=== PATIENT | female | born 1995 | race Caucasian/White ===

== ENCOUNTER 2019-09-16 16:57 | Inpatient (IN) | payer BC, SELFPAY ==
[2019-09-16] VITALS (48 sets, daily range): BP systolic 89–127; BP diastolic 58–87; PULSE 66–103; TEMP 36.5–37.3; O2SAT 98–100; BMI 26.6
[2019-09-16] MEDS: LACTATED RINGERS 1,000 ML 125 ML IV CONT ×3 (17:31→19:24)
--- NOTE | 2019-09-16 17:43 | LDADM ---
This patient, Rose Lerner, was admitted to Labor/Delivery/Recovery 105 on 09/16/19 at 16:57. Plans for labor, pain management and were discussed with patient. Patient/family oriented to hospital policies and general routines including ID bracelet, bed and alarms, visiting hours, pain management, procedures, bathroom and other care routines, personal items, smoking policy, room service/diet and guest tray routines, security routines, and visiting hours. Patient/Family are encouraged to report perceived risks to care and to ask questions if they do not understand what they are told or what they should do. See OBIX for further documentation.
[2019-09-16 17:59] LABS: Basophils Absolute Auto 0.1 K/mm3 (0.0-0.1); Basophils Percent Auto 0.4 % (0.2-1.2); Eosinophils Absolute Auto 0.1 K/mm3 (0-0.3); Eosinophils Percent Auto 0.7 % (0-4.4); Hematocrit 37.7 % (37.0-47.0); Hemoglobin 13.2 g/dL (12.0-15.0); Immature Granulocyte Absolute 0.15 K/mm3 (0.00-0.031); Immature Granulocyte Percent A 0.9 % (0-0.5); Lymphocytes Absolute Auto 2.14 K/mm3 (0.9-3.2); Mean Corpuscular Hemoglobin 30.7 pg (26-34); Mean Corpuscular Volume 87.7 fl (80-100); Mean Platelet Volume 13.9 fl (7.4-10.4); Monocytes Absolute Auto 0.8 K/mm3 (0.1-0.6); Neutrophils Absolute Auto 13.2 K/mm3 (1.3-6.7); Platelet Count Result 136 k/mm3 (150-375); Red Cell Distribution Width 12.7 % (11.5-14.5); White Blood Count 16.5 K/mm3 (4.5-10.0)
--- NOTE | 2019-09-16 18:46 | WPDANESEPPF ---
Anes - Initial Pre Proc Eval Procedure: labor epidural Date/Time: 09/16/19 18:46 Surgeon: Phi Shelton MD Pre Op Diagnosis: labor pain Pre Op Diagnosis: CONTRACTIONS Patient Data Age: 24 Gender: F Height: 1.7 m Weight: 77 kg Last Vital Signs Temp 37.3 C 09/16/19 18:34 Pulse 68 09/16/19 18:43 BP 116/73 09/16/19 18:43 Pulse Ox 100 09/16/19 18:42 Allergies Allergy/AdvReac Type Severity Reaction Status Date / Time amoxicillin [From Augmentin] Allergy Hives Verified 08/20/19 15:32 clavulanic acid Allergy Hives Verified 08/20/19 15:32 [From Augmentin] Penicillins Allergy Fever Verified 08/20/19 15:32 Home Medications Medication Instructions Recorded Confirmed Type PNV cmb#95-ferrous fumarate-FA 1 tablet PO DAILY 08/20/19 09/16/19 History [] albuterol sulfate [Ventolin HFA] 1 inh INHALATION QID PRN 08/20/19 09/16/19 History knawnvzfih-unjxyxb-crvfjxkv 1 tablet PO Q4-6H PRN 08/20/19 09/16/19 History sertraline 100 mg PO DAILY 08/20/19 09/16/19 History zolpidem [Ambien] 5 mg PO HS PRN 08/20/19 09/16/19 History Laboratory Tests 09/16/19 09/16/19 09/16/19 17:23 17:23 17:23 WBC 16.5 K/mm3 H K/mm3 (4.5-10.0) RBC 4.30 M/mm3 M/mm3 (4.2-5.4) Hgb 13.2 g/dL g/dL (12.0-15.0) Hct 37.7 % % (37.0-47.0) MCV 87.7 fl fl (80-100) MCH 30.7 pg pg (26-34) MCHC 35.0 g/dl g/dl (32-36) RDW 12.7 % % (11.5-14.5) Plt Count 136 k/mm3 L k/mm3 (150-375) MPV 13.9 fl H fl (7.4-10.4) Immature Gran % (Auto) 0.9 % H % (0-0.5) Neut % (Auto) 80.0 % H % (45.5-73.1) Lymph % (Auto) 13.0 % L % (18.3-44.2) [place] % (Auto) 5.0 % % (2.6-8.5) Eos % (Auto) 0.7 % % (0-4.4) Baso % (Auto) 0.4 % % (0.2-1.2) Lymph # (Auto) 2.14 K/mm3 K/mm3 (0.9-3.2) [place] # (Auto) 0.8 K/mm3 H K/mm3 (0.1-0.6) Eos # (Auto) 0.1 K/mm3 K/mm3 (0-0.3) Baso # (Auto) 0.1 K/mm3 K/mm3 (0.0-0.1) Abs Immat Gran (auto) 0.15 K/mm3 H K/mm3 (0.00-0.031) Absolute Neuts (auto) 13.2 K/mm3 H K/mm3 (1.3-6.7) Absolute Nucleated RBC 0.0 K/mm3 K/mm3 (0.0-0.012) Nucleated RBC % 0.0 % % (0.0-0.2) % Immature Plt Fraction 18.0 % H % (0.9-11.2) RPR Pending Blood Type Pending Antibody Screen Pending Patient hx anesthesia problems: none Family hx anesthesia problems: none [facility] Past Medical History Medical History (Updated 09/16/19 @ 18:48 by Evans Ramos CRNA) Asthma Depression Family History Family History (Updated 08/20/19 @ 15:39 by Noam Mcdonald RN) Grandparent Leukemia Ovarian cancer Father Celiac disease Other Breast cancer Social History Social History Smoking status: Never smoker Substance use: never Gender identity (if verbalized by the patient): Female Spiritual care concerns: No Anes - Eval Final PreProcedure Day of Procedure 09/16/19 18:46 Patient weight: normal Heart: regular rate and rhythm Lungs: clear to auscultation and normal air movement Airway: Mallampati scale Neurological: alert and oriented ASA classification: II Emergent: no Anesthetic plan: proceed Anesthesia type and monitoring: regional epidural and standard monitoring Informed Consent: The patient's anesthetic plan and its attendant risks and benefits were discussed with the patient/family/POA. Questions were solicited and answers provided to the satisfaction of the patient/family/POA.
[2019-09-16] MEDS: SERTRALINE HCL 50 MG TABLET 100 MG PO (19:59)
--- NOTE | 2019-09-16 20:50 | WPDOBADMIT ---
Obstetrics - Admit Note Admission Note: record reviewed. No pertinent additions to the history and/or any subsequent changes in the physical findings that are not consistent with the expected course of the were found. Pt arrived in active labor, epidural placed, AROM large amount of clear odorless fluid, 9/100/-1/0, anticipate vaginal delivery Additions to the history and/or subsequent changes in the physical findings follow. None.
[2019-09-16] MEDS: OXYTOCIN 30 UNITS/NS 500 ML 30 UNITS/500 ML BAG 999 UNITS IV CONT (21:57)
[2019-09-16] MEDS: MISOPROSTOL 200 MCG TABLET 1000 MCG (22:06)
--- NOTE | 2019-09-16 22:12 | PM.OBPRVD ---
OB - Delivery Note Procedure Delivery date: 09/16/19 Procedure: vaginal delivery Intrapartal events: None Delivery augmentation: rupture of membranes Delivery monitor: external FHT and external uterine Route of delivery: Laceration description: Perineal - 1st Degree Delivery repair: vicryl Specimen: No Estimated blood loss (mL): 135 Anesthesia type: Epidural Disposition: other () Baby Date of : 09/16/19 Time of : 21:51 Weeks of gestation at delivery: 39 Infant gender: Male Weight (pounds): 7 Weight (ounces): 14 presentation: vertex position: Left Occiput Anterior Placenta delivery description: Spontaneous cord vessel description: 3 Vessels and Clamped/Cut score one minute: 8 score five minutes: 9 Narrative: mother and baby in stable condition
[2019-09-16] MEDS: OXYTOCIN 30 UNITS/NS 500 ML 30 UNITS/500 ML BAG 125 UNITS IV CONT (22:29)
[2019-09-17 00:01] VITALS: BP 108/70; PULSE 80
[2019-09-17 00:16] VITALS: BP 122/67; PULSE 77
[2019-09-17 00:31] VITALS: BP 110/64; PULSE 74
[2019-09-17] MEDS: BENZOCAINE 20% AER SPR (*SP) 56 GM CAN 1 SPRAY TOPICAL ×2 (00:38→17:51)
[2019-09-17] MEDS: WITCH HAZEL 40 PADS 1 PAD TOPICAL ×2 (00:38→17:51)
[2019-09-17 01:00] VITALS: BP 113/69; PULSE 72; RESP 14; TEMP 36.9
--- NOTE | 2019-09-17 01:40 | PC.NURSE ---
This patient, Rose Lerner, was admitted to OB 2nd Floor Room 281-00. Patient/family oriented to hospital policies and general routines including ID bracelet, bed and alarms, visiting hours, pain management, procedures, bathroom and other care routines, personal items, smoking policy, room service/diet, and visiting hours. Information on how to activate the Rapid Response Team has been discussed. Patient/Family are encouraged to report perceived risks to care and to ask questions if they do not understand what they are told or what they should do.
[2019-09-17] MEDS: IBUPROFEN 600 MG TABLET PO ×2 (05:12→17:52)
[2019-09-17 05:13] LABS: Hematocrit 36.2 % (37.0-47.0); Hemoglobin 12.4 g/dL (12.0-15.0)
--- NOTE | 2019-09-17 06:58 | WPDANLDPN2 ---
Anes-Prog Note L&D Date/Time: 09/17/19 06:58 Comfortable throughout: labor and delivery Neuraxial method: epidural Epidural/Spinal procedure site: clean & non-tender Neuro status: Neuro function grossly intact. Cardiovascular status: normal Respiratory status: normal Airway patency: baseline Mental status: baseline Post-Op hydration status: normal Vital Signs: Last Vital Signs Temp 36.9 C 09/17/19 01:00 Pulse 72 09/17/19 01:00 Resp 14 09/17/19 01:00 BP 113/69 09/17/19 01:00 Pulse Ox 100 09/16/19 18:42 I/O: Intake & Output 09/16/19 09/16/19 09/17/19 15:59 23:59 07:59 Intake Total 3250 500 Output Total 70 Balance 3250 430 Post-procedural complaints: none Patient feedback: Patient satisfied with anesthetic care.
[2019-09-17 07:36] VITALS: BP 107/74; PULSE 81; RESP 18; TEMP 36.2
--- NOTE | 2019-09-17 07:47 | PM.OBPNVD ---
OB - PN: Subj Subjective Date/time seen: 09/17/19 07:47 OB - PN: Obj Data Labs CBC & Chem 7: 09/17/19 04:56 Labs: Laboratory Results - last 24 hr 09/16/19 09/16/19 09/17/19 17:23 17:23 04:56 WBC 16.5 H RBC 4.30 Hgb 13.2 12.4 Hct 37.7 36.2 L MCV 87.7 MCH 30.7 MCHC 35.0 RDW 12.7 Plt Count 136 L MPV 13.9 H Immature Gran % (Auto) 0.9 H Neut % (Auto) 80.0 H Lymph % (Auto) 13.0 L [place] % (Auto) 5.0 Eos % (Auto) 0.7 Baso % (Auto) 0.4 Lymph # (Auto) 2.14 [place] # (Auto) 0.8 H Eos # (Auto) 0.1 Baso # (Auto) 0.1 Abs Immat Gran (auto) 0.15 H Absolute Neuts (auto) 13.2 H Absolute Nucleated RBC 0.0 Nucleated RBC % 0.0 % Immature Plt Fraction 18.0 H Blood Type O Positive Antibody Screen Negative OB - PN A/P Plan day: 1 Plan: routine care Time Spent With Patient Time: Total time spent is greater than 50% in coordination of care (as documented) at patient's floor/unit and/or counseling patient: Time with patient: less than 15 minutes Review of Systems Review of Systems: All systems reviewed & are unremarkable except as noted in HPI and below Constitutional: Constitutional: Reports as per HPI and Reports no additional constitutional complaints Eyes: Eyes: Reports as per HPI ENT: Reports system reviewed and no additional complaints, except as documented Cardiovascular: Cardiovascular: Reports as per HPI Respiratory: Respiratory: Reports as per HPI Gastrointestinal: Gastrointestinal: Reports as per HPI Genitourinary: Genitourinary: Reports no additional female genitourinary complaints Musculoskeletal: Musculoskeletal: Reports no additional musculoskeletal complaints Integumentary/Breasts: Skin/Breast: Reports system reviewed and no additional complaints, except as docu Neurologic: Reports system reviewed and no additional complaints, except as documented Psychiatric: Psychiatric: Reports no additional psychiatric complaints Endocrine: Endocrine: Reports no additional endocrine complaints Hematologic/Lymphatic: Hematologic/Lymphatic: Reports no additional hematologic/lymphatic complaints Allergic/Immunologic: Allergic/Immunologic: Reports no additional allergic/immunologic complaints Exam Narrative: Exam Narrative: Fundus firm and vaginal flow controlled. Const: General: comfortable Orientation/consciousness: oriented to person, oriented to place, oriented to time and patient oriented x3 Limitations: no limitations HENMT: Head: normal to inspection Ears: hearing grossly normal bilaterally General nose exam: Normal external nose present Face and sinus: normal facial exam Mouth: Yes Normal oral and palatal mucosa present Teeth and gingiva: dentition normal Throat: posterior oropharynx normal Eyes: General: appearance normal, both eyes and all related structures Neck: Neck: normal visual inspection Thyroid: thyroid normal Chest: Chest palpation & inspection: normal inspection of the chest Breast/axilla inspection: normal inspection of the breasts Resp: Effort & Inspection: normal respiratory effort Auscultation: clear to auscultation bilaterally Cardio: Rate: regular rate Rhythm: regular rhythm GI: Inspection: normal to inspection Auscultation: normal bowel sounds : General: Yes bimanual renal exam normal bilaterally Skin: General skin exam: normal color and no rashes or lesions noted Neuro: General: oriented to person, oriented to place, oriented to time and patient oriented x3 Extrem: General: normal to inspection Psych: Appearance: grossly normal Mental Status: mental status grossly normal Affect: normal affect Attitude: cooperative Judgement: Good judgement present (Psych)
[2019-09-17 09:14] LABS: Rapid Plasma Reagin Non-Reactive (NonReactive)
--- NOTE | 2019-09-17 09:40 | PC.NURSE ---
Mother called out for assist. Consulted with patient, mother reports some difficulties with latch and tenderness with latch and during entire feeding. Reviewed infant feeding cues, frequencies, duration of feedings, feeding elimination flow sheet, and signs of adequate intake. Demonstrated stimulation techniques to wake infant for feeding. Mother attempts to breast, allowing to make several attempts to self attach. Discussed how this will make nipples tender. Assisted with to breast. Reviewed positioning/alignment in cross cradle, holding breast in U hold and guided asymmetrical latch on. Discussed rational for each. Infant was able to latch correctly within a few attempts. nursed eagerly, with steady draws and frequent swallowing noted. Reviewed signs of a correct latch, effective nursing and suck swallow ratio. Infant was able to maintain latch without discomfort to mother. Nipple care reviewed. Mother reports latch is better, she continues to have slight tenderness. Demonstrated how to adjust latch more deeply while feeding. Mother was able to adjust latch more deeply and now reports no discomfort. Suggested to stimulate during feeding to keep infant awake and nursing effectively for increased intake and assist with maintaining deep latch. Instructed mother to call out for RN assistance if she is unable to latch infant for feeding or she has discomfort with nursing. Instructed feeding should be initiated three hours from start of last feeding or if feeding cues are noted before. Mother voiced understanding of information shared.
--- NOTE | 2019-09-17 13:05 | PCDIET ---
Mother called out for assist. Assisted with infant to breast. Reviewed positioning/alignment in cross cradle, holding breast in U hold and guided asymmetrical latch on. Discussed rational for each. Infant was able to latch correctly within a few attempts. nursed eagerly, with steady draws and frequent swallowing noted. Reviewed signs of a correct latch, effective nursing and suck swallow ratio. Infant was able to maintain latch without discomfort to mother. Nipple care reviewed. Suggested to stimulate during feeding to keep infant awake and nursing effectively for increased intake and assist with maintaining deep latch. Instructed mother to call out for RN assistance if she is unable to latch infant for feeding or she has discomfort with nursing. Instructed feeding should be initiated three hours from start of last feeding or if feeding cues are noted before. Mother voiced understanding of information shared.
[2019-09-17] MEDS: DOCUSATE SODIUM 100 MG CAPSULE PO (17:51)
[2019-09-17] MEDS: MULTIVIT/MIN/PREN/FOL AC/IRON TABLET 1 TAB PO (17:52)
[2019-09-17] MEDS: SERTRALINE HCL 50 MG TABLET 100 MG PO (20:25)
[2019-09-17] MEDS: TETANUS,DIPHTHERIA,AC PERTUSSIS ADULT (0.5 ML) BOOSTRIX IM (20:55)
[2019-09-17] MEDS: MEASLES,MUMPS,RUBELLA VACCINE 0.5 ML VIAL SUB-Q (21:00)
[2019-09-17 22:17] VITALS: BP 124/69; PULSE 84; RESP 14; TEMP 37
[2019-09-18] MEDS: IBUPROFEN 600 MG TABLET PO ×2 (05:43→16:36)
[2019-09-18 08:00] VITALS: BP 102/73; PULSE 82; RESP 18; TEMP 36.6
--- NOTE | 2019-09-18 08:03 | PM.OBPNVD ---
OB - PN: Subj Subjective Date/time seen: 09/18/19 08:03 Patient comments: no complaints, pain well controlled and tolerating diet OB - PN: Obj Data Labs CBC & Chem 7: 09/17/19 04:56 Labs: Laboratory Results - last 24 hr 09/16/19 17:23 RPR Non-reactive OB - PN A/P Plan day: 2 Plan: routine care and discharge home Time Spent With Patient Time: Total time spent is greater than 50% in coordination of care (as documented) at patient's floor/unit and/or counseling patient: Exam Const: General: comfortable and no acute distress Resp: Effort & Inspection: normal respiratory effort Auscultation: no rales, no rhonchi and no wheezes Cardio: Rate: regular rate Heart sounds: no click, no murmurs and no rubs GI: GI Palp: Yes Soft to palpation and No Tenderness to palpation present (GI) Auscultation: normal bowel sounds Extrem: General: normal to inspection, no pedal edema and no calf tenderness
--- NOTE | 2019-09-18 08:03 | PM.OBDSVD ---
DS: Admitting Diagnosis Admitting Diagnosis Admitting Diagnosis: Labor DS: Discharge Diagnosis Discharge Diagnosis (1) Term delivered: Code(s): O80 - Encounter for full-term uncomplicated delivery Status: Acute OB - DS: Summary OB Procedures : None OB Procedures Intrapartum: Spontaneous Vag Delivery OB Procedures: : None Peripartum Data Infant Delivery Method: Natural Vaginal Laceration description: Vaginal - 1st Degree Status at Discharge Functional status at discharge: independent ambulation Time Spent with Patient Time attestation: Total time spent providing and/or coordinating discharge services: DS: Data Data Completed and Pending Labs on day of discharge: Labs from last 24 hours 09/16/19 17:23 RPR Non-reactive Discharge Plan Discharge Discharging Clinician: Phi Shelton Patient Disposition: Home, Self-Care Activity: pelvic rest Diet: regular Patient Instructions: Antibiotic Form Stand Alone Forms: General Discharge Information Follow-up/Referrals: Phi Shelton MD [Physician] - Discharge Medications: Continued sertraline 100 mg Tablet 100 mg PO DAILY RF: 0 axpjuagbfi-rgtcyva-hdzkmmmx 50-325-40 mg Tablet 1 tablet PO Q4-6H PRN (Reason: Headache) RF: 0 zolpidem [Ambien] 5 mg Tablet 5 mg PO HS PRN (Reason: Insomnia) RF: 0 albuterol sulfate [Ventolin HFA] 90 mcg/actuation Hfa Aerosol Inhaler 1 inh INHALATION QID PRN (Reason: Wheezing) RF: 0 PNV cmb#95-ferrous fumarate-FA [] 28 mg iron- 800 mcg Tablet 1 tablet PO DAILY RF: 0 Date of admission: 09/16/19 16:57 Primary Care Provider: PHYSICIAN,COMMISSARY CLERK Admitting Provider: Phi Shelton Attending physician on admission: Phi Shelton
--- NOTE | 2019-09-18 10:30 | PC.NURSE ---
Consulted with patient, mother reports infant fed well during the night. Mother reports has been nursing for 50 minutes this feeding. Suggested mother swaddle infant to allow for infant to rest, mother would like to allow infant to nurse if he is willing. Mother put infant to breast independently, was latched deeply, nursing eagerly with steady draws and frequent swallowing for bursts. Reviewed signs of a correct latch, effective nursing and suck swallow ratio. was able to maintain latch without discomfort to mother. Nipple care reviewed. Suggested to stimulate during entire feeding to keep awake and feeding effectively for increased intake and assist maintaining deep latch. responded to stimulation with increased nursing, minimal stimulation needed. Instructed mother to call out for RN assistance if she is unable to latch for feeding or she has discomfort with nursing. Instructed feeding should be initiated three hours from start of last feeding or if feeding cues are noted before. Mother voiced understanding of information shared.
[2019-09-18] MEDS: BENZOCAINE 20% AER SPR (*SP) 56 GM CAN 1 SPRAY TOPICAL (16:36)
[2019-09-18] MEDS: WITCH HAZEL 40 PADS 1 PAD TOPICAL (16:36)
[2019-09-18] MEDS: DOCUSATE SODIUM 100 MG CAPSULE PO (16:36)
--- NOTE | 2019-09-18 18:58 | PC.NURSE ---
Self care discharge instructions given to pt. including follow up appt. to be scheduled with discharge. Pt. verbalized understanding. No questions or concerns voiced. Very pleasant and cooperative. FOB at side.
[2019-09-18] MEDS: SERTRALINE HCL 50 MG TABLET 100 MG PO (19:07)
[2019-09-20 08:45] VITALS: BP 107/71; PULSE 99; RESP 20; TEMP 37.1
== END 2019-09-18 19:10 | disposition home or self-care (01) | DRG 807 ==
LOC: ANHLDR 17:14 → ANHOB2 09-17 01:04
PROVIDERS: Advanced Practice Midwife; Admitting Provider Obstetrics & Gynecology; Visit Provider Obstetrics & Gynecology
DX: O99.824 Streptococcus B carrier state complicating childbirth (principal); Z37.0 Single live birth; Z3A.39 39 weeks gestation of pregnancy; O70.0 First degree perineal laceration during delivery; O99.344 Other mental disorders complicating childbirth; F41.8 Other specified anxiety disorders
CPT/HCPCS: 36415; 85014; 85018; 85025; 85055; 86592; 86850; 86900; 86901; 90710; 90715; A9270; J2590; J2795; J3370; J7120

== ENCOUNTER 2022-10-30 10:19 | Outpatient (CLI) | payer OTHER, SELFPAY | END 2022-10-30 10:20 | disposition home or self-care (01) | PROVIDERS: Visit Provider Obstetrics & Gynecology | DX: R10.2 Pelvic and perineal pain (principal) | CPT/HCPCS: 36415; 86850; 86900; 86901 ==

== ENCOUNTER 2022-11-03 01:22 | Day surgery (SDC) | payer OTHER, SELFPAY ==
[2022-10-25 15:30] VITALS: BMI 26.4
--- NOTE | 2022-10-25 15:34 | SUR.PREOP ---
Report to the Outpatient Waiting Room, entrance under the green pavilion located off [facility], at time _0630 on date _11/03/22 . Planned Procedure Time: _829 . Time changes happen often and if your time is changed the preop area will call you the afternoon before. - You and your visitor will be asked to self-screen and do not enter if you have any COVID symptoms. - A mask is optional within the hospital at this time. Patients may have clear liquids (water, carbonated beverages, clear teas, apple juice) until 3 hours prior to surgery with a maximum of 20 ounces. - No food from midnight until time of surgery - Infants may have breast milk until 4 hours before surgery, formula 6 hours prior to surgery. - Children will be allowed to drink immediately following surgery. If applicable, please bring a bottle or sippy cup to assist with drinking. Juice, water, soda, and popsicles are readily available. For infants on formula, please bring formula the day of surgery. Pacifiers are allowed. Take the following medications with a SIP of water the morning of surgery: _DESVENLAFAXINE DO NOT STOP ANY OF YOUR OTHER PRESCRIPTION MEDICATIONS PRIOR TO SURGERY ?EXCEPT THE FOLLOWING Medications to discontinue per physician N/A Date to take last dose__N/A Please no make-up, nail wolof, hairspray, perfume, deodorant, or body powder the day of surgery. No jewelry (including any body piercings) or valuables the day of surgery, leave them at home. Please take a shower or bath the night before, or the morning of, surgery with an antibacterial soap. Wear comfortable, loose fitting clothing. Children are encouraged to wear pajamas. - Jewelry must be removed prior to entering the operating room. Rings and piercings that are not removed may be cut off. - The hospital will not accept responsibility for valuables. - Please leave all valuables, including medications, at home the day of surgery. If you are going home after surgery, a licensed stock car driver must drive you home. - NO public transportation without another adult if you receive anesthesia. - We recommend that an adult stay with you for 24 hours following discharge. - We also recommend that you do not drive, make important decision, drink alcoholic beverages, or take any drugs that were not prescribed by your health care provider for at least 24 hours after your discharge time. For Pediatric surgeries, we recommend two adults accompany the child home. Follow any additional instructions given to you from your surgeon. If you or anyone in your household have experienced Covid symptoms in the past week, please notify your surgeon or the nurse liaison at the phone number below for possible testing. Telephone instructions given to _CLARITA GUADARRAMA and asked if any additional questions and then verbalized understanding. Patient advised to call surgeon office or pre surgery nurse liaison [phone] if any additional questions.
[2022-11-03] VITALS (12 sets, daily range): BP systolic 101–117; BP diastolic 56–93; PULSE 58–90; RESP 13–18; TEMP 36.1–36.9; O2SAT 93–100
[2022-11-03] MEDS: ACETAMINOPHEN 500 MG TABLET 1000 MG PO (06:28)
[2022-11-03] MEDS: LACTATED RINGERS 1,000 ML 30 ML IV CONT ×3 (06:38→10:17)
[2022-11-03] MEDS: KETOROLAC 15 MG/ML VIAL (*BKC) IV PUSH (06:43)
--- NOTE | 2022-11-03 07:07 | P.PNAN_ITS ---
Anes - Initial Pre Proc Eval Procedure: Operation Date: 11/03/22 07:30 Proposed Procedures p Total Laparoscopic Hysterectomy with Bilateral Salpingectomy - Phi Shelton MD Date/Time: 11/03/22 07:07 Surgeon: Phi Shelton MD Pre Op Diagnosis: pelvic pain Patient Data Age: 27 Gender: F Height: 1.63 m Weight: 69.6 kg Last Vital Signs Temp 97 F L 11/03/22 06:11 Pulse 78 11/03/22 06:11 Resp 16 11/03/22 06:11 BP 117/56 L 11/03/22 06:11 Pulse Ox 98 11/03/22 06:11 O2 Del Method Room Air 11/03/22 06:11 Allergies Allergy/AdvReac Type Severity Reaction Status Date / Time amoxicillin [From Augmentin] Allergy Intermediate Hives Verified 11/03/22 06:24 clavulanic acid Allergy Intermediate Hives Verified 11/03/22 06:24 [From Augmentin] Penicillins Allergy Mild Fever Verified 11/03/22 06:24 Home Medications Medication Instructions Recorded Confirmed Type albuterol sulfate 90 mcg/actuation 1 inh inhalation QID PRN Wheezing 08/20/19 10/25/22 History aerosol inhaler (Ventolin HFA) splsqzikoq-tqxihbw-vbtolywl 50 1 tablet PO Q4-6H PRN Headache 08/20/19 10/25/22 History mg-325 mg-40 mg tablet desvenlafaxine succinate 100 mg 100 mg PO DAILY 10/25/22 11/03/22 History tablet,extended release 24 hr montelukast 10 mg tablet 10 mg PO DAILY 10/25/22 11/03/22 History omeprazole 40 mg capsule,delayed 40 mg PO DAILY 10/25/22 11/03/22 History release Patient hx anesthesia problems: post op nausea/vomiting Family hx anesthesia problems: none Results Review: All pre-operative results and documents have been reviewed as part of the pre- operative evaluation. COUNT INCLUDES THE [facility] Past Medical History Medical History (Updated 09/18/19 @ 08:05 by Phi Shelton MD) Asthma Depression Family History Family History (Updated 08/20/19 @ 15:39 by Noam Mcdonald RN) Grandparent Leukemia Ovarian cancer Father Celiac disease Other Breast cancer Social History Social History Smoking status: Never smoker Alcohol intake: current Drinks per week: 14 Substance use: current Substance use type: marijuana Other substance usage details: smoking,daily Living arrangements: with family Gender identity (if verbalized by the patient): Female Spiritual care concerns: No Anes - Eval Final PreProcedure Day of Procedure 11/03/22 07:07 Patient weight: normal Heart: regular rate and rhythm Lungs: clear to auscultation Airway: Mallampati scale class II Neurological: alert and oriented Last oral intake: >/= 8 hours ASA classification: II Emergent: no Anesthetic plan: proceed Anesthesia type and monitoring: general ETT and standard monitoring Results Review: All pre-operative results and documents have been reviewed as part of the pre- operative evaluation. Informed Consent: The patient's anesthetic plan and its attendant risks and benefits were discussed with the patient/family/POA. Questions were solicited and answers provided to the satisfaction of the patient/family/POA.
[2022-11-03] MEDS: SCOPOLAMINE 1.5 MG PATCH TRANSDERM (07:14)
--- NOTE | 2022-11-03 07:15 | WPDHPUPDATE1 ---
History and Physical Update Update Date/Time: 11/03/22 07:15 History and Physical has been reviewed, including an updated exam of the patient. There are NO changes in the patient's condition. Risks, benefits, and alternatives have been discussed and questions answered. Patient agrees to proceed with procedure.
[2022-11-03] MEDS: ceFAZolin 2 GM/D5W 50 ML 2 GM/50 ML BAG IVPB (07:33)
[2022-11-03] MEDS: fentaNYL CITRATE INJ (*CRX) 100 MCG/2 ML VIAL 25 MCG IV PUSH ×6 (09:20→10:08)
--- NOTE | 2022-11-03 09:35 | W.PM.PROC2 ---
Procedure Note - Detailed Date of Procedure 11/03/22 Pre-op Diagnosis pelvic pain Post-op Diagnosis Same Procedure Performed Total laparoscopic hysterectomy. Bilateral salpingectomy Surgeon Pih Shelton MD Anesthesia General Indications pelvic pain Findings normal-appearing tubes and ovaries, mildly enlarged uterus, scarring of the bilateral pelvic sidewalls Description of Procedure This patient was taken to the operating room. She was prepped and draped in the dorsal lithotomy position after induction of general anesthesia. The uterine manipulator and Nataliya cup were placed. This was done with a speculum and tenaculum. The speculum was placed. The cervix was grasped with a tenaculum. The stay sutures were placed at 3 and 9:00 a.m.. The stay sutures of 0 Vicryl were brought through the appropriately sized Nataliya cup. The tip of the DENIS manipulator was placed in the intrauterine cavity. The cup was slid into place around the cervix and into the fornices. It was locked into place. The sutures were then wrapped around the handle and tied under tension. A 5 mm skin incision was made in the left upper quadrant the abdomen. A 5 mm trocar was inserted into the intrauterine cavity under direct visualization of the scope. Pneumoperitoneum was achieved. A left lower quadrant 11 mm incision was made with scalpel. An 11 mm trocar was inserted into the anterior abdominal cavity under direct visualization the scope. A 5 mm infraumbilical incision was made with a scalpel and a 5 mm trocar was inserted the intra-abdominal cavity under direct visualization of the scope. Bilateral ureteral lysis was performed. This was done from the pelvic brim down to the uterine artery. This was done with careful dissection using sharp and blunt dissection. The fallopian tubes were removed bilaterally. The mesosalpinx around the fallopian tubes were cauterized transected with LigaSure cautery. This was done in a bilateral fashion from the ovary to the uterine cornua. The fallopian tube was transected at the uterine cornu and amputated. The tube was taken out the left lower quadrant trocar site. In a stepwise fashion along the lateral aspects of the uterus the round ligament and broad ligaments were cauterized transected down to the level of the uterine arteries. A bladder flap was created in the bladder was moved distally to the end of the cervix and over the Nataliya cup. The bilateral uterine arteries were cauterized and transected. Colpotomy was then performed. In a circumferential fashion the vagina was transected using unipolar cautery. The incision was made down on the Nataliya cup. The uterus and cervix were taken out through the vagina. A pneumo occluder was placed in the vagina. The vaginal cuff was closed with a 0 V lock suture in a running fashion. The pelvis was irrigated with copious amounts antibiotic irrigation. The ureters were again examined and found to be intact and flowing freely under the uterine arteries into the bladder. The bladder was intact. It was examined directly. The vagina was irrigated with Betadine solution after removal of the Pneumo occluder. The patient was taken to recovery room. She was stable condition. Sponge lap and needle counts were correct x2. Estimated Blood Loss -50.0 Urine Output -200.0 Drains Yes Packing No Pathology Yes Complications No immediate complications Condition Stable Disposition Floor
[2022-11-03] MEDS: ONDANSETRON INJ 4 MG/2 ML VIAL IV PUSH ×2 (09:58→18:40)
[2022-11-03] MEDS: HYDROmorphone HCL INJ (*CRX) 1 MG/ML SYR 0.5 MG IV PUSH ×3 (10:13→10:32)
--- NOTE | 2022-11-03 10:39 | SUR.PHASEI ---
Pt. states their preferred name is Winsome . Floor RN notified on handoff report.
--- NOTE | 2022-11-03 11:04 | PC.NURSE ---
This patient, Rose Lerner, was received from PACU via stretcher on 11/03/22 at 1104. Patient oriented to unit policies and routines.
[2022-11-03] MEDS: DEXTROSE 5%/0.45% SOD CHL 1,000 ML 125 ML IV CONT (12:21)
[2022-11-03] MEDS: KETOROLAC 30 MG/ML VIAL (*BKC) IV PUSH ×2 (14:09→20:09)
[2022-11-03] MEDS: HYDROcodone/acetaminophen (*CRX) 5-325 MG TABLET 1 TAB PO ×2 (16:02→18:39)
[2022-11-04 02:00] VITALS: BP 103/58; PULSE 62; RESP 16; TEMP 36.8; O2SAT 99
[2022-11-04] MEDS: ACETAMINOPHEN 325 MG TABLET 650 MG (02:12)
[2022-11-04] MEDS: DESVENLAFAXINE SUCCINATE 50 MG TAB.ER.24H 100 MG PO (07:31)
[2022-11-04] MEDS: PANTOPRAZOLE 40 MG TABLET PO (07:31)
[2022-11-04] MEDS: IBUPROFEN 600 MG TABLET PO (07:32)
[2022-11-04 07:40] VITALS: BP 106/69; PULSE 68; RESP 18; TEMP 37.1; O2SAT 100
[2022-11-04] MEDS: SIMETHICONE 80 MG TAB.CHEW (07:44)
--- NOTE | 2022-11-04 08:24 | PM.GYNPNOP ---
NON DESTRUCTIVE TESTING SCIENTIST - A/P Postoperative Procedures: Procedures Operation Date: 11/03/22 07:30 Actual Procedure Side Surgeon p Total Laparoscopic Hysterectomy with Bilateral Salpingectomy Bilateral Phi Shelton MD Postoperative day: 1 Postoperative status: doing well Postoperative plan: see orders Time Spent With Patient Time: Total time spent is greater than 50% in coordination of care (as documented) at patient's floor/unit and/or counseling patient: Time with patient: less than 15 minutes NON DESTRUCTIVE TESTING SCIENTIST- PN:Subj Post-Op Subjective Date/time seen: 11/04/22 08:24 Subjective: patient reports feeling better, patient has no complaints and pain is well controlled Exam Const: General: healthy appearing, comfortable and no acute distress Resp: Auscultation: clear to auscultation bilaterally, no rales, no rhonchi and no wheezes Cardio: Rate: regular rate Heart sounds: no click, no murmurs and no rubs GI: Inspection: non-distended Auscultation: normal bowel sounds Extrem: General: normal to inspection, no pedal edema and no calf tenderness NON DESTRUCTIVE TESTING SCIENTIST - PN: Obj Data Vital Signs Vital Signs: Vital Signs - 24 hr 11/03/22 09:13 11/03/22 09:20 11/03/22 09:30 Temperature 98.4 F Pulse Rate 75 71 58 L Respiratory Rate 18 13 15 Blood Pressure 109/56 L 113/72 109/71 Pulse Oximetry 100 98 93 Oxygen Delivery Simple Face Mask Room Air Room Air Oxygen Flow Rate 11/03/22 09:45 11/03/22 10:00 11/03/22 10:15 Temperature Pulse Rate 90 73 89 Respiratory Rate 18 17 16 Blood Pressure 101/68 107/93 H 105/66 Pulse Oximetry 99 99 97 Oxygen Delivery Room Air Room Air Room Air Oxygen Flow Rate 11/03/22 10:30 11/03/22 10:45 11/03/22 10:57 Temperature Pulse Rate 69 74 77 Respiratory Rate 17 14 14 Blood Pressure 109/63 109/66 112/73 Pulse Oximetry 94 96 95 Oxygen Delivery Room Air Room Air Room Air Oxygen Flow Rate 11/03/22 11:10 11/03/22 18:45 11/04/22 02:00 Temperature 97.7 F 97.7 F 98.2 F Pulse Rate 69 62 62 Respiratory Rate 16 18 16 Blood Pressure 110/64 101/78 103/58 L Pulse Oximetry 99 100 99 Oxygen Delivery Oxygen Flow Rate Intake/Output Intake/Output: Intake & Output 11/01/22 11/02/22 11/03/22 11/04/22 23:59 23:59 23:59 23:59 Intake Total 3270 Output Total 4685 Balance -1415 Meds/Results Medications: Active Medications Generic Name Dose Route Start Last Admin Trade Name Freq PRN Reason Stop Dose Admin Acetaminophen 650 mg 11/04/22 02:06 Acetaminophen 325 Mg Tablet PO Q6H PRN Headache Hydrocodone Bitart/Acetaminophen 1 tab 11/03/22 11:00 11/03/22 18:39 Hydrocodone/Acetaminophen (*Crx) 5-325 Mg Tablet PO 1 tab Q3H PRN Administration Pain Rated 5 or Less Hydrocodone Bitart/Acetaminophen 1 tab 11/03/22 11:00 Hydrocodone/Acetaminophen (*Crx) 10-325 Mg Tablet PO Q3H PRN Pain Rated 6 or Greater Albuterol 1 puff 11/03/22 11:00 Albuterol Sulfate (*Sp) Aerosol 1 Puff INHALATION QID PRN Wheezing Butalbital/Aspirin/Caffeine 1 cap 11/03/22 11:00 Aspirin/Caffeine/Butalbital (*Crx) 325/40/50 Mg Capsule (Fiorinal) PO Q4-6H PRN Headache Desvenlafaxine Succinate 100 mg 11/04/22 09:00 11/04/22 07:31 Desvenlafaxine Succinate 50 Mg Tab.Er.24h PO 12/04/22 08:59 100 mg DAILY NAVA Administration Dextrose/Sodium Chloride 1,000 mls @ 125 mls/hr 11/03/22 11:00 11/03/22 12:21 Dextrose 5% Sodium Chloride 0.45% IV CONT 125 mls/hr .Q8H NAVA Administration Ibuprofen 600 mg 11/03/22 11:00 11/04/22 07:32 Ibuprofen 600 Mg Tablet PO 600 mg Q6H PRN Administration Cramping Ketorolac Tromethamine 30 mg 11/03/22 11:00 11/03/22 20:09 Ketorolac 30 Mg/Ml Vial (*Bkc) IV PUSH 11/08/22 10:59 30 mg Q6H PRN Administration Pain Rated 4-6 Montelukast Sodium 10 mg 11/03/22 21:00 Montelukast Sodium 10 Mg Tablet PO HS NAVA Naloxone HCl 0.1 mg 11/03/22 11:00 Naloxone Hcl 0
[2022-11-04 09:40] VITALS: TEMP 36.3
--- NOTE | 2022-11-04 09:57 | PC.NURSE ---
0940 RN in room to remove IV catheter. Pt was up walking in the urias to get a 2nd cup of coffee. Per pt she feels cold, wearing sweat pants and sweat shirt, temperature taken via temporal, was 97.4 F, patient's room temperature was very cold, per patient she just turned up the temperature in the room. Per patient she feels shaky , she was working on her second cup of coffee and per pt she drinks a lot of caffeine, she did just finish her breakfast as well and ate 90% of her regular diet. She is having some pain and what feels like gas pressure to her in her abdomen, RN offered pain medication, patient declined. RN offered to call Dr. Shelton to let him know how she was feeling, per patient she would not like him called, she said, I will be ok, just need to go home and rest . RN to remove IV and go over discharge paperwork. Patient to call her to let her know she could be picked up soon.
== END 2022-11-04 10:07 | disposition home or self-care (01) ==
LOC: ANHSURGERY 07:15 → ANHOB2 11:02
PROVIDERS: Visit Provider Obstetrics & Gynecology
PROC: 0UT9FZZ Resection of Uterus, Via Natural or Artificial Opening With Percutaneous Endoscopic Assistance (ICD-10-PCS; CPT 58571; principal; 2022-11-03 07:30)
DX: R10.2 Pelvic and perineal pain (principal); K21.9 Gastro-esophageal reflux disease without esophagitis; F41.9 Anxiety disorder, unspecified; J45.909 Unspecified asthma, uncomplicated; F32.A Depression, unspecified; Z79.51 Long term (current) use of inhaled steroids; F12.90 Cannabis use, unspecified, uncomplicated; Z79.891 Long term (current) use of opiate analgesic; Z79.82 Long term (current) use of aspirin
CPT/HCPCS: 58571; 88307; 99199; A9270; J0690; J1100; J1170; J1885; J2250; J2405; J2704; J2710; J3010; J7030; J7120

== ENCOUNTER 2022-12-27 18:06 | Emergency (ER) | payer OTHER, SELFPAY ==
--- NOTE | 2022-12-27 18:33 | ED.WOUNDLAC ---
HPI - Wound/Laceration General Chief Complaint: Wound/Laceration Stated Complaint: lac on right hand History of Present Illness HPI narrative: PATIENT PRESENTS WITH A DAY OLD LACERATION TO RIGHT HAND. PATIENT STATES SHE WAS WASHING DISHES AND A BUTTER KNIFE CUT HER BETWEEN HER RIGHT LITTLE FINGER AND RIGHT RING FINGER. 0.5 MM SUPERFICIAL LACERATION TO AREA NO CONCERN FOR INFECTION EDGES FAIRLY WELL APPROXIMATED. PATIENT STATES SHE IS UP-TO-DATE ON TETANUS. Related Data Home Medications Medication Instructions Recorded Confirmed albuterol sulfate 90 mcg/actuation 1 inh inhalation QID PRN Wheezing 08/20/19 10/25/22 aerosol inhaler (Ventolin HFA) [id number] 50 1 tablet PO Q4-6H PRN Headache 08/20/19 10/25/22 mg-325 mg-40 mg tablet desvenlafaxine succinate 100 mg 100 mg PO DAILY 10/25/22 11/03/22 tablet,extended release 24 hr montelukast 10 mg tablet 10 mg PO DAILY 10/25/22 11/03/22 omeprazole 40 mg capsule,delayed 40 mg PO DAILY 10/25/22 11/03/22 release Allergies Allergy/AdvReac Type Severity Reaction Status Date / Time amoxicillin [From Augmentin] Allergy Intermediate Hives Verified 12/27/22 18:32 clavulanic acid Allergy Intermediate Hives Verified 12/27/22 18:32 [From Augmentin] Penicillins Allergy Mild Fever Verified 12/27/22 18:32 Review of Systems Review of Systems: CONSTITUTIONAL: DENIES FEVER, CHILLS, OR SWEATS. EYES: DENIES VISUAL CHANGES, REDNESS, OR DISCHARGE. ENT: DENIES RHINORRHEA, CONGESTION, SORE THROAT, OR OTALGIA. CARDIOVASCULAR: DENIES CHEST PAIN, PALPITATIONS, OR EDEMA. RESPIRATORY: DENIES COUGH OR DYSPNEA. GASTROINTESTINAL: DENIES ABDOMINAL PAIN, NAUSEA, VOMITING, OR DIARRHEA. GENITOURINARY: DENIES DYSURIA OR HEMATURIA. SKIN: DENIES RASH OR ITCHING. MUSCULOSKELETAL: DENIES BACK PAIN, JOINT PAIN, OR MYALGIA. NEUROLOGIC: DENIES HEADACHE, NUMBNESS, OR WEAKNESS. PSYCHIATRIC: DENIES ANXIETY OR DEPRESSION. [facility] Past Medical History Medical History (Updated 12/27/22 @ 18:36 by RONDA Muse) Asthma Depression Family History Family History (Updated 08/20/19 @ 15:39 by Noam Mcdonald RN) Grandparent Leukemia Ovarian cancer Father Celiac disease Other Breast cancer Social History Social History Smoking status: Never smoker Alcohol intake: current Drinks per week: 14 Substance use: current Substance use type: marijuana Other substance usage details: smoking,daily Living arrangements: with family Gender identity (if verbalized by the patient): Female Spiritual care concerns: No Comments AT TIME OF SIGNATURE, AGREE WITH NURSING PAST MEDICAL, SURGICAL, SOCIAL AND FAMILY HISTORY. THERE IS NO RELEVANT FAMILY HISTORY PERTINENT TO THE PRESENTING COMPLAINT Exam Narrative: GENERAL: WELL-APPEARING, WELL-NOURISHED, AND IN NO ACUTE DISTRESS. HEAD: NORMOCEPHALIC, ATRAUMATIC. EYES: PERRLA AND EOMI. ENT: NARES CLEAR, NO RHINORRHEA OR EPISTAXIS. MUCOUS MEMBRANES MOIST. NECK: SUPPLE. CHEST: CLEAR TO AUSCULTATION. NO RESPIRATORY DISTRESS. HEART: REGULAR RATE AND RHYTHM. NO MURMUR HEARD. NORMAL PERIPHERAL PULSES. ABDOMEN: SOFT, NONTENDER, NONDISTENDED, NORMAL ACTIVE BOWEL SOUNDS. EXTREMITIES: NORMAL RANGE OF MOTION. NO EDEMA. SKIN: WARM, DRY, NO RASH. 0.5 MM AREA OLD LACERATION BETWEEN RIGHT LITTLE FINGER AND RIGHT RING FINGER. NO INTERVENTION NEEDED. NEURO: NO FOCAL DEFICITS. ALERT AND ORIENTED X3. AGUSTINA COMA SCALE EYE OPENING: SPONTANEOUS 4 AGUSTINA COMA SCALE MOTOR: OBEYS COMMANDS 6 AGUSTINA COMA SCALE VERBAL: ORIENTED 5 AGUSTINA COMA SCALE TOTAL 15 Course Course Level of Care: Express Care Visit Discharge Plan Discharge Clinical Impression: Laceration Patient Disposition: Home, Self-Care Condition: Stable Instructions: Antibiotic Form, Laceration Without Closure (ED) Additional Instructions: APPLY ANTIBIOTIC OINTMENT PRESCRIBED WORSE WITH WARM SOAP AND WATER 2 TIMES A DAY MONITOR FOR ANY SIGNS
== END 2022-12-27 18:50 | disposition home or self-care (01) ==
PROVIDERS: Emergency Provider Nurse Practitioner Family
DX: S61.411A Laceration without foreign body of right hand, initial encounter (principal); W26.0XXA Contact with knife, initial encounter
CPT/HCPCS: 99213; G0463

== ENCOUNTER 2024-09-04 09:13 | Emergency (ER) | payer OTHER, SELFPAY ==
[2024-09-04 09:18] VITALS: BP 120/82; PULSE 81; RESP 14; TEMP 36.9; O2SAT 100
--- NOTE | 2024-09-04 09:35 | ED.NAVMDI ---
HPI - Nausea/Vomiting/Diarrhea General Chief complaint: Nausea/Vomiting/Diarrhea Stated complaint: n/v Time Seen by Provider: 09/04/24 09:36 Source: patient and RN notes reviewed Mode of arrival: ambulatory Limitations: no limitations History of Present Illness HPI Narrative: 29-year-old female presented for complaint of nausea, vomiting, diarrhea, and chills. Onset 2 days. States symptoms started after night of drinking alcohol. Denies abdominal pain but endorses cramping. Denies sick contacts. Denies hematochezia, or melena, urinary complaints or lethargy. Has eaten 2 bananas in the last 2 days, but is able to tolerate fluids. 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 Related Data Home Medications ?Medication ?Instructions ?Recorded ?Confirmed ?Last Taken ?Type albuterol sulfate 90 mcg/actuation 1 inh inhalation QID PRN Wheezing 08/20/19 10/25/22 Unknown History aerosol inhaler (Ventolin HFA) montelukast 10 mg tablet 10 mg PO DAILY 10/25/22 11/03/22 11/02/22 History omeprazole 40 mg capsule,delayed 40 mg PO DAILY 10/25/22 11/03/22 11/02/22 History release fluoxetine 40 mg capsule mg 09/04/24 Unknown History hydroxyzine HCl 10 mg tablet mg 09/04/24 Unknown History propranolol 10 mg tablet mg 09/04/24 Unknown History Allergies Allergy/AdvReac Type Severity Reaction Status Date / Time amoxicillin (From Augmentin) Allergy Intermediate Hives Verified 12/27/22 18:32 clavulanic acid (From Allergy Intermediate Hives Verified 12/27/22 18:32 Augmentin) Penicillins Allergy Mild Fever Verified 12/27/22 18:32 Review of Systems Review of Systems: CONSTITUTIONAL: Denies body aches, fever, reports chills ENT: Denies rhinorrhea, congestion CARDIOVASCULAR: Denies chest pain, palpitations, or edema. RESPIRATORY: Denies cough or dyspnea. GASTROINTESTINAL: Endorses nausea, vomiting, diarrhea. Denies abdominal pain, hematochezia, melena, hematemesis GENITOURINARY: Denies dysuria, hematuria, or CVA tenderness. SKIN: Denies rash, itching MUSCULOSKELETAL: Denies back pain, joint pain, or myalgia. NEUROLOGIC: Denies headache, numbness, tingling, or weakness. All systems reviewed & are unremarkable except as noted in HPI and below PMFSH Past Medical History Medical History (Updated 09/04/24 @ 10:21 by Neha Messina APRN) Depression Asthma Family History Family History (Updated 08/20/19 @ 15:39 by Noam Mcdonald RN) Grandparent Leukemia Ovarian cancer Father Celiac disease Other Breast cancer Social History Social History Smoking status: Never smoker Alcohol intake: current Drinks per week: 14 Substance use: current Substance use type: marijuana Other substance usage details: smoking,daily Living arrangements: with family Gender identity (if verbalized by the patient): Female Spiritual care concerns: No Comments At time of signature, I have reviewed and agree with nursing past medical, surgical, social and family history unless otherwise noted. Please see nursing chart for further information. There is no relevant family history pertinent to the presenting complaint Exam Narrative: GENERAL: mildly ill-appearing, and in no acute distress. EYES: EOMI. Conjunctivae normal. ENT: Mucous membranes pink and moist. CHEST: No respiratory distress. Clear to auscultation. HEART: Regular rate and rhythm. No murmur appreciated. Normal peripheral pulses. ABDOMEN: abd soft, nondistended, normal active bowel sounds. Generalized tender abdomen throughout, Reports RUQ worst. No guarding, rebound tenderness, asymmetry SKIN: Warm, dry, no rash. Capillary refill normal. Normal skin turgor. NEURO: No focal deficits. Alert and oriented x3. PSYCH: Normal affect. Course Course Emergency Course: Patient is aware of diagnosis, understands and agrees to treatment plan. Anticipatory guidance given. Patient agrees to follow-up as directed and is aware of reasons to seek care at the emergency department. Portions of this record may have been created with voice recognition software Level of Care: Express Care Visit Vital Signs Vital signs: Vital Signs Temperature 98.5 F 09/04/24 09:18 Pulse Rate 81 09/04/24 09:18 Respiratory Rate 14 09/04/24 09:18 Blood Pressure 120/82 09/04/24 09:18 Pulse Oximetry 100 09/04/24 09:18 Oxygen Delivery Room Air 09/04/24 09:18 Temperature 98.5 F 09/04/24 09:18 Pulse Rate 81 09/04/24 09:18 Respiratory Rate 14 09/04/24 09:18 Blood Pressure 120/82 09/04/24 09:18 Pulse Oximetry 100 09/04/24 09:18 Oxygen Delivery Room Air 09/04/24 09:18 Transfer Transfered to: [facility] ([place]) Transportation: Other Transfer rationale: Pt is agreeable to transfer. Requests transfer to [facility] via private vehicle. Risks of transportation reviewed with pt including injury, worsening of condition and . v/u. Report called to hospital, spoke with Jame SNEED, Dr Arevalo accepting physician. Pt is in stable condition at time of transfer. Advised to remain NPO and go directly to the hospital. MDM - Nausea/Vomiting/Diarrhea MDM Narrative Medical decision making narrative: Patient presenting with nausea, vomiting, and diarrhea x2 days. Reassessed after Zofran given. Reports some improvement in nausea, but she is agreeable to further evaluation inER. Requests [facility]. Differential Diagnosis Differential diagnosis: Likely traveler's diarrhea, food poisoning, gastroenteritis, drug-induced nausea and vomiting and dehydration Discharge Plan Discharge Clinical Impression: Nausea, vomiting and diarrhea Patient Disposition: Acute Care Hospital Condition: Stable Patient Language: Armenian Prescriptions: No Action fluoxetine 40 mg capsule propranolol 10 mg tablet hydroxyzine HCl 10 mg tablet albuterol sulfate [Ventolin HFA] 90 mcg/actuation Hfa Aerosol Inhaler 1 inh INHALATION QID PRN (Reason: Wheezing) omeprazole 40 mg capsule,delayed release(DR/EC) 40 mg PO DAILY montelukast 10 mg tablet 10 mg PO DAILY Follow-up/Referrals: UNKNOWN,DOCTOR [Primary Care Provider] - Time of Disposition: 10:19
--- OUTSIDE RECORDS SUMMARY | 2024-09-04 09:41 | XMS_ITS | Encounter Summary ---
Author Organization [facility] Address [address] [place] [address] Phone Care Team Providers Care Claims Correspondence Clerk Name Role Phone Mitzi Cardenas APRN, CNP Primary Care Provid er Reason for Visit * Reason Comments Medication Refill Encounter Details Date Type Department Care Team (Late st Contact Info) Description 07/30/2023 Refill [facility] - Family Medicine [facility] [address] [place] [phone] Mitzi Cardenas APRN, CNP [address] [phone] Medication Refill Social History Tobacco Use Types Packs/Day Years Used Date Smoking Tobacco: Former Cigarettes 0.3 3 0 03/28/2012 - 03/28/2015 Smokeless Tobacco: Never Comments:hookah Alcohol Use Standard Drinks/Week Comments Yes 0 (1 standard drink = 0.6 oz pur e alcohol) not typically [facility] Utilities Answer Date Recorded In the past 12 months has [employer] electric, gas, oil, or water company threatened to shut off services in your home? No 04/15/2023 Social Connection and Isolation Panel Answer Date Recorded In a typical week, how many times do you talk on the phone with family, friends, or neighbors? Once a week 04/15/2023 How often do you get togethe r with friends or relatives? Once a week 04/15/2023 How often do you attend chur ch or synagogue services? Never 04/15/2023 Do you belong to any clubs o r organizations such as samaritan groups, unions, fraternal or athletic groups, or school groups? No 04/15/2023 How often do you attend meet ings of the clubs or organizations you belong to? More than 4 times per year 04/15/2023 Are you , , di vorced, , never , or living with a partner? 04/15/2023 AUDIT-C Answer Date Recorded Q1: How often do you have a drink containing alcohol? 4 or more times a week 04/15/2023 Q2: How many drinks containi ng alcohol do you have on a typical day when you are drinking? 1 or 2 Q3: How often do you have si x or more drinks on one occasion? Never 04/15/2023 Overall Financial Resource Strain (CARDIA) Answe r Date Recorded How hard is it for you to pa y for the very basics like food, housing, medical care, and heating? Patient declined 04/15/2023 PHQ-2 Answer Date Recorded Total Score - Questions 1-9 0 06/26 [facility] - Occupational Stress Questionnaire Answer Date Recorded Do you feel stress - tense, restless, nervous, or anxious, or unable to sleep at night because your mind is troubled all the time - these days? Very much 04/15/2023 Exercise Vital Sign Answer Date Recorde d On average, how many days pe r week do you engage in moderate to strenuous exercise (like a brisk walk)? 0 days 04/15/2023 On average, how many minutes do you engage in exercise at this level? 0 min 04/15/2023 Hunger Vital Sign Answer Date Recorded Within the past 12 months, y ou worried that your food would run out before you got the money to buy more. Never true 04/15/19 24 Within the past 12 months, t he food you bought just didn't last and you didn't have money to get more. Never true 04/15/2023 PRAPARE - Transportation Answer Date Re corded In the past 12 months, has l ack of transportation kept you from medical appointments or from getting medications? No 03/28 In the past 12 months, has l ack of transportation kept you from meetings, work, or from getting things needed for daily living? No 04/15/2023 Housing Stability Vital Sign Answer Travis e Recorded In the last 12 months, was t here a time when you were not able to pay the mortgage or rent on time? No 04/15/2023 In the last 12 months, how many places have you lived? 1 04/15/2023 In the last 12 months, was t here a time when you did not have a steady place to sleep or slept in a senior living (including now)? No 04/15/2023 Education Answer Date Recorded What is the highest level of school you have completed or the highest degree you have received? Bachelor's degree (e.g., BA, AB, BS) 02/03/2020 Sexually Active Control Partners Comments Yes Male Comments No Sex and Gender Information Value Date Recorded Sex Assigned at Female 03/06/2023 10:14 PM INTERNET MARKETING STRATEGIST Legal Sex Female 3:51 AM INTERNET MARKETING STRATEGIST Gender Identity Other 04/15/2023 8:49 PM INTERNET MARKETING STRATEGIST Sexual Orientation Something else 03/06/2023 10 :14 PM INTERNET MARKETING STRATEGIST Occupation Industry Job Start Date Job End Date [employer] Not on file Not on file Not on file documented as of this encounter Miscellaneous Notes * Telephone Encounter - Alannah Chaparro RN - 07/31/2023 10:14 AM CDT Medication(s) refilled and signed per [facility] Chronic Medication Refill Standing Order for Pediatricand Adult Patients. Requested Prescriptions Pending Prescriptions Disp Refills montelukast (SINGULAIR) 10 MG Tablet [Pharmacy Med Name: MONTELUKAST SOD 10 MG TABLET] 90 Tablet 1 Sig: TAKE 1 TABLET BY MOUTH EVERY DAY IN THE EVENING Leukotriene Inhibitors Protocol Passed - 07/30/2023 4:04 PM Passed - Visit with relevant provider in past 12 months or upcoming 90 days Recent Visits Date Type Provider Dept 05/25/23 Office Visit Marco A Jenkins MD [facility] 04/15/23 Office Visit Mitzi Cardenas APRN, CLOTHING MANAGER [facility] Showing recent visits within past 365 days and meeting all other requirements Future Appointments Date Type Provider Dept 10/14/23 Appointment Mitzi Cardenas APRN, [facility] Showing future appointments within next 90 days and meeting all other requirements documented in this encounter Plan of Treatment Not on file documented as of this encounter Visit Diagnoses Diagnosis Mild intermittent asthma without complication Unspecified asthma documented in this encounter Additional Health Concerns Infection Onset Date Last Indicated Resolved Time Respiratory Rule-Out 05/16/2024 05/16/2024 025 2:53 PM INTERNET MARKETING STRATEGIST Influenza 05/16/2024 05/16/2024 05/23/2024 12:1 7 AM INTERNET MARKETING STRATEGIST Assessment Noted Time PHQ-9 Depression Total Score: 0 07/11/19 21 1:24 PM CDT documented as of this encounter Care Teams Claims Correspondence Clerk Relationship Specialty Start Date End Date Mitzi Cardenas APRN, ARNOL [address] [phone] PCP - General Advanced Practice Nurse 01/23/19 documented as of this encounter
--- OUTSIDE RECORDS SUMMARY | 2024-09-04 09:41 | XMS_ITS | Clinical Summary ---
Author Organization [facility] Address [address] [place] [address] Phone Care Team Providers Care Wall Taper Helper Name Role Phone Mitzi Cardenas APRN, ARNOL Primary Care Provid er Allergies Active Allergy Reactions Criticality Noted Date Comments Amoxicillin Hives 07/10/2020 Amoxicillin-Pot Clavulanate Unknown 12/31/19 09 Penicillins Unknown 12/30/2008 Medications * This document contains information received from the source organization and may not represent a complete record from that organization. butalbital-acetam inophen-caffeine (FIORICET, ESGIC) 50-325-40 MG TabletIndications :Intractable episodic headache, unspecified headache type Take 1 Tab by mouth every 4 hours as needed for Headaches or Migraine. 30 Tab 1 9 Active Desvenlafaxine Succinate 50 MG TABLET SR 24 HR Take 50 mg by mouth daily. Active albuterol (ProAir HFA) 108 (90 Base) MCG/ACT Aerosol Solution take 2 Puffs by inhalation every 4 hours as needed for Wheezing or Cough. 8.5 g 3 Active nortriptyline (PAMELOR) 25 MG Capsule 5 Active cyclobenzaprine (FLEXERIL) 5 MG Tablet 1 tablet twice a day 5 Active propranolol (INDERAL) 10 MG Tablet 5 Active omeprazole (PriLOSEC) 40 MG CAPSULE DELAYED RELEASEIndication s:Gastroesophagea l reflux disease, unspecified whether esophagitis present TAKE 1 CAPSULE BY MOUTH EVERY DAY 90 Capsule 1 5 Active montelukast (SINGULAIR) 10 MG TabletIndications :Mild intermittent asthma without complication TAKE 1 TABLET BY MOUTH EVERY DAY IN THE EVENING 90 Tablet 1 5 Active Active Problems Problem Noted Date Diagnosed Date Acute mastitis of left breast 01/25/2020 Thrombocytopenia 01/25/2020 Asthma, mild intermittent 01/23/2019 Anxiety 07/07/2012 Depression 01/07/2012 Postherpetic neuralgia 11/09/2011 Physical exam, annual (Adult) 05/07/2010 Asthma, exercise induced 01/28/2010 Allergic rhinitis Resolved Problems Problem Noted Date Diagnosed Date Resolved Date Leukocytosis 01/25/2020 01/27/2020 Fever 01/25/2020 01/27/2020 Lymphopenia 01/25/2020 01/27/2020 Cellulitis of left breast 01/25/2020 Severe sepsis 01/25/2020 01/27/2020 Encounters Date Type Department Care Team Description 07/13/2024 [facility] [place] [address] Mitzi Cardenas APRN, ARNOL Medication Refill 07/12/2024 [facility] [place] [address] Mitzi Cardenas APRN, ARNOL Medication Refill from Last 3 Months Immunizations Immunization Administration Dates Next Due Covid-19, Mrna, Lnp-s, Pf, 3 0 Mcg/0.3 Ml Dose ([employer]) 06/17/2020 DTAP VACCINE, UNSPECIFIED FORMULATION 07/30/1998 ,05/06/1994,1993 DTAP/HIB Combined Vaccine 1993 DTP-Hib 1993 Diptheria, Pertussis, And Tetanus 07/30/1998,11/1994,1993 HIB Vaccine (PRP-T) 07/27/1994,05/06/1994,1993 Hepatitis A Vaccine 03/29/2014 Hepatitis B Vaccine 05/09/1998,09/02/1997,1993 Hepatitis B Vaccine, Pediatric/adolescent 05/09/1998,09/02/1997,1993 Hib Vaccine,unspecified Formulation 07/27/1994,0 05/06/1994,1993 Human Papillomavirus Vaccine (HPV), quadrivalent 10/18/2007 Influenza Vaccine greater than 3 yrs 12/25/2019, 12/16/2017 Influenza Vaccine, MDCK,quad rivalent, pres free 02/28/2023 Influenza Vaccine, Quadrivalent, PF 12/27,12/25/2019,01/23/2019,12/14 Influenza Vaccine,unspecifie d Formulation 02/28/2023 Influenza, Seasonal, Injecta ble, Undefined 12/16/2017 MMR Vaccine 07/30/1998,07/27/1994 Meningococcal Vaccine 10/18/2007 OPV 07/30/1998, 5,1993,08/21 TDAP Vaccine 07/29/2020,07/20/2005 Family History Medical History Relation Name Comments Celiac Disease Father Depression Father Cancer Maternal Aunt Cervical Cancer Maternal Grandmother Leukemi a Hypertension Mother Migraines Mother Ovarian Cancer Paternal Grandfather Cancer Paternal Grandmother cervica l cancer Allergies Sister Asthma Sister Relation Name Status Comments Father Alive Maternal Aunt Maternal Grandmother Mother Alive Paternal Grandfather Paternal Grandmother Sister Alive Social History Tobacco Use Types Packs/Day Years Used Date Smoking Tobacco: Former Cigarettes 0.3 3 0 03/28/2012 - 03/28/2015 Smokeless Tobacco: Never Tobacco Cessation:Counseling Given: No Comments:hookah Alcohol Use Standard Drinks/Week Comments Yes 0 (1 standard drink = 0.6 oz pur e alcohol) not typically [facility] Utilities Answer Date Recorded In the past 12 months has [employer], gas, oil, or water [employer] threatened to shut off services in your home? No 04/15/2023 Social Connection and Isolation Panel Answer Date Recorded In a typical week, how many times do you talk on the phone with family, friends, or neighbors? Once a week 04/15/2023 How often do you get togethe r with friends or relatives? Once a week 04/15/2023 How often do you attend [facility] or episcopalian services? Never 04/15/2023 Do you belong to any clubs o r organizations such as faith groups, unions, fraternal or athletic groups, or [...] Total Score - Questions 1-9 0 06/26 [facility] - Occupational Stress [...] place to sleep or slept in a snf (including now)? No 04/15/2023 Education Answer Date Recorded What is the highest level of school you have completed or the highest degree you have received? Bachelor's degree (e.g., BA, AB, BS) 02/03/2020 Sexually Active Control Partners Comments Yes Male Comments No Sex and Gender Information Value Date Recorded Sex Assigned at Female 03/06/2023 10:14 PM STACKER DRIVER Legal Sex Female 3:51 AM STACKER DRIVER Gender Identity Other 04/15/2023 8:49 PM STACKER DRIVER Sexual Orientation Something else 03/06/2023 10 :14 PM STACKER DRIVER Occupation Industry Job Start Date Job End Date [employer] Not on file Not on file Not on file Last Filed Vital Signs Vital Sign Reading Time Taken Comments Blood Pressure 100/62 05/16/2024 2:36 PM STACKER DRIVER Pulse 92 05/16/2024 2:36 PM STACKER DRIVER Temperature 36.1 C (96.9 F) 05/16/2024 2:36 PM STACKER DRIVER Respiratory Rate 14 05/16/2024 2:36 PM STACKER DRIVER Oxygen Saturation 99% 05/16/2024 2:36 PM STACKER DRIVER Inhaled Oxygen Concentration - - Weight 66.4 kg (146 lb 6.4 oz) 05/16/2024 2:36 P M STACKER DRIVER Height 167.6 cm (5' 6) 05/16/2024 2:36 PM STACKER DRIVER Body Mass Index 23.63 05/16/2024 2:36 PM STACKER DRIVER Plan of Treatment Health Maintenance Due Date Last Done Comments Hepatitis C Virus (HCV) Screening 1993 Human Papillomavirus (HPV) Immunization (2 - 2-dose series) 2008 10/18/2007 Pneumococcal Immunization Combined (1 of 2 - PCV) 2012 SARS-COV-2 Immunization ( season) 2023 02/28/2023, 03/04/2021, 07/15/2020, Additional history exists Influenza Immunization (Season Ended) 2024 02/28/2023, 02/28/2023, 01/14/2021, Additional history exists DTaP/Tdap/Td Immunization (7 - Td or Tdap) 07/29/2030 07/29/2020, 07/20/2005, 07/30/1998, Additional history exists Respiratory Syncytial Virus (RSV) Immunization (Adult) (1 - 1-dose 75+ series) 2068 Hepatitis B Immunization Completed 999, 05/09/1998, 09/02/1997, Additional history exists Meningococcal Immunization (ACWY) Aged Out 10/18/2007 No longer eligible based on patient's age to complete this topic Cervical Cancer Screening (CCS) Discontinued Pap Smear Discontinued 02/12/2019, 02/12/2019 HPV/Cotest Discontinued Rotavirus Immunization Aged Out No lo nger eligible based on patient's age to complete this topic Procedures Procedure Name Priority Date/Time Associated Diagnosis Comments PATHOLOGY CYTOLOGY ACTUARIAL INTERN Routine 02/12/2019 from Last 3 Months or Most Recently Relevant to Health Maintenance Results * PATHOLOGY CYTOLOGY ACTUARIAL INTERN (02/12/2019) Specimen of unknown material (specimen) Lelo Alexandre APRN, CNM PATHOLOGY/CYTOLOGY ORDERA BLES Final Result from Last 3 Months or Most Recently Relevant to Health Maintenance Insurance [employer] [place] Advance Directives * Full Code (Latest Code Status on File) Date Activated Date Inactivated Comments 01/25/2020 12:03 PM 01/27/2020 2:13 PM CPR-Full T reatment: FULL ARREST: Attempt Resuscitation/CPR wit intubation and mechanical ventilation. PRE-ARREST: Use entire range of life support measures to stabilize the patient. Care Teams Wall Taper Helper Relationship Specialty Start Date End Date Mitzi Cardenas APRN, FINISHING MACHINE OPERATOR [employer] [address] [phone] PCP - General Advanced Practice Nurse 01/23/19
--- OUTSIDE RECORDS SUMMARY | 2024-09-04 09:41 | XMS_ITS | Encounter Summary ---
Author Organization [facility] Address [address] [place] [address] Phone Care Team Providers Care Real Estate Assessor Name Role Phone Mitzi Cardenas APRN, CNP Primary Care Provid er Reason for Visit * Reason Comments Medication Refill Encounter Details Date Type Department Care Team (Late st Contact Info) Description 06/28/2021 Refill [facility] Medical [facility] - Family Medicine [facility] [address] [place] [phone] Mitzi Cardenas APRN, CNP [address] [phone] Medication Refill Social History Tobacco Use Types Packs/Day Years Used Date Smoking Tobacco: Former Cigarettes 0.3 3 0 03/28/2012 - 03/28/2015 Smokeless Tobacco: Never Comments:hookah Alcohol Use Standard Drinks/Week Comments Yes 0 (1 standard drink = 0.6 oz pur e alcohol) not typically PHQ-2 Answer Date Recorded Total Score - Questions 1-9 0 06/26 Education Answer Date Recorded What is the highest level of school you have completed or the highest degree you have received? Bachelor's degree (e.g., BA, AB, BS) 02/03/2020 Sexually Active Control Partners Comments Yes Male Comments No Sex and Gender Information Value Date Recorded Sex Assigned at Female 03/06/2023 10:14 PM SOCIAL PROBLEMS SPECIALIST Legal Sex Female 3:51 AM SOCIAL PROBLEMS SPECIALIST Gender Identity Other 04/15/2023 8:49 PM SOCIAL PROBLEMS SPECIALIST Sexual Orientation Something else 03/06/2023 10 :14 PM SOCIAL PROBLEMS SPECIALIST Occupation Industry Job Start Date Job End Date [employer] Not on file Not on file Not on file documented as of this encounter Plan of Treatment Not on file documented as of this encounter Visit Diagnoses Diagnosis Mild intermittent asthma without complication Unspecified asthma documented in this encounter Additional Health Concerns Infection Onset Date Last Indicated Resolved Time Respiratory Rule-Out 05/16/2024 05/16/2024 025 2:53 PM SOCIAL PROBLEMS SPECIALIST Influenza 05/16/2024 05/16/2024 05/23/2024 12:1 7 AM SOCIAL PROBLEMS SPECIALIST Assessment Noted Time PHQ-9 Depression Total Score: 0 07/11/19 21 1:24 PM CDT documented as of this encounter Care Teams Real Estate Assessor Relationship Specialty Start Date End Date Mitzi Cardenas APRN, COMMERCIAL ARTIST #[address] [phone] PCP - General Advanced Practice Nurse 01/23/19 documented as of this encounter
--- OUTSIDE RECORDS SUMMARY | 2024-09-04 09:41 | XMS_ITS | Encounter Summary ---
Author Organization [facility] Address [address] [place] [address] Phone Care Team Providers Care Carpet Cleaning Technician Name Role Phone Mitzi Cardenas APRN, CNP Primary Care Provid er Reason for Visit * Reason Comments Medication Refill Encounter Details Date Type Department Care Team (Late st Contact Info) Description 07/15/2023 Refill [facility] Medical Group - Family Medicine [facility] [address] [place] [phone] Mitzi Cardenas APRN, CNP [address] [phone] Medication Refill Social History Tobacco Use Types Packs/Day Years Used Date Smoking Tobacco: Former Cigarettes 0.3 3 0 03/28/2012 - 03/28/2015 Smokeless Tobacco: Never Comments:hookah Alcohol Use Standard Drinks/Week Comments Yes 0 (1 standard drink = 0.6 oz pur e alcohol) not typically [facility] Utilities Answer Date Recorded In the past 12 months has [employer] electric, gas, oil, or water company threatened [...] often do you attend chur ch or baptist services? Never 04/15/2023 Do you belong to any clubs o r organizations such as moravian groups, unions, fraternal or athletic groups, or [...] Total Score - Questions 1-9 0 06/26 [facility] Occupat ional Health - Occupational [...] place to sleep or slept in a intermediate (including now)? No 04/15/2023 Education Answer Date Recorded What is the highest level of school you have completed or the highest degree you have received? Bachelor's degree (e.g., BA, AB, BS) 02/03/2020 Sexually Active Control Partners Comments Yes Male Comments No Sex and Gender Information Value Date Recorded Sex Assigned at Female 03/06/2023 10:14 PM FAMILY CONSULTANT Legal Sex Female 3:51 AM FAMILY CONSULTANT Gender Identity Other 04/15/2023 8:49 PM FAMILY CONSULTANT Sexual Orientation Something else 03/06/2023 10 :14 PM FAMILY CONSULTANT Occupation Industry Job Start Date Job End Date [employer] Not on file Not on file Not on file documented as of this encounter Miscellaneous Notes * Telephone Encounter - Roxanna Cronin RN - 07/15/2023 11:59 AM CDT Medication(s) [facility] and [facility] Chronic Medication Refill Standing Order for Pediatricand Adult Patients. Requested Prescriptions Pending Prescriptions Disp Refills omeprazole (PriLOSEC) 40 MG CAPSULE DELAYED RELEASE [Pharmacy Med Name: OMEPRAZOLE DR 40 MG CAPSULE] 90 Capsule 1 Sig: TAKE 1 CAPSULE BY MOUTH EVERY DAY Proton Pump Inhibitors Protocol Passed - 07/15/2023 12:48 AM Passed - No positive test in the past 12 months or most recent test was negative Passed - Visit with relevant provider in past 12 months or upcoming 90 days Recent Visits Date Type Provider Dept 05/25/23 Office Visit Marco A Jenkins MD [facility] 04/15/23 Office Visit Mitzi Cardenas APRN, SWEATER DESIGNER [facility] Showing recent visits within past 365 days and meeting all other requirements Future Appointments No visits were found meeting these conditions. Showing future appointments within next 90 days and meeting all other requirements Passed - No active on record documented in this encounter Plan of Treatment Not on file documented as of this encounter Visit Diagnoses Diagnosis Gastroesophageal reflux disease, unspecified whether esophagitis present documented in this encounter Additional Health Concerns Infection Onset Date Last Indicated Resolved Time Respiratory Rule-Out 05/16/2024 05/16/2024 025 2:53 PM FAMILY CONSULTANT Influenza 05/16/2024 05/16/2024 05/23/2024 12:1 7 AM FAMILY CONSULTANT Assessment Noted Time PHQ-9 Depression Total Score: 0 07/11/19 21 1:24 PM CDT documented as of this encounter Care Teams Carpet Cleaning Technician Relationship Specialty Start Date End Date Mitzi Cardenas APRN, ARNOL #[address] [phone] PCP - General Advanced Practice Nurse 01/23/19 documented as of this encounter
--- OUTSIDE RECORDS SUMMARY | 2024-09-04 09:41 | XMS_ITS | Encounter Summary ---
Author Organization [facility] Address [address] [place] [address] Phone Care Team Providers Care Receiving Associate Store Name Role Phone Mitzi Cardenas APRN, CNP Primary Care Provid er Reason for Visit * Reason Comments Medication Refill Encounter Details Date Type Department Care Team (Late st Contact Info) Description 04/27/[address] [facility] - Family Medicine [facility] [address] [place] [phone] Mitzi Cardenas APRN, CNP [address] [phone] Medication Refill Social History Tobacco Use Types Packs/Day Years Used Date Smoking Tobacco: Former Cigarettes 0.3 3 0 03/28/2012 - 03/28/2015 Smokeless Tobacco: Never Comments:hookah Alcohol Use Standard Drinks/Week Comments Yes 0 (1 standard drink = 0.6 oz pur e alcohol) not typically PHQ-2 Answer Date Recorded Total Score - Questions 1-9 0 11/2019 Education Answer Date Recorded What is the highest level of school you have completed or the highest degree you have received? Bachelor's degree (e.g., BA, AB, BS) 02/03/2020 Sexually Active Control Partners Comments Yes Male Comments No Sex and Gender Information Value Date Recorded Sex Assigned at Female 03/06/2023 10:14 PM PERSONNEL SUPERVISOR Legal Sex Female 3:51 AM PERSONNEL SUPERVISOR Gender Identity Other 04/15/2023 8:49 PM PERSONNEL SUPERVISOR Sexual Orientation Something else 03/06/2023 10 :14 PM PERSONNEL SUPERVISOR Occupation Industry Job Start Date Job End Date [employer] Not on file Not on file Not on file documented as of this encounter Miscellaneous Notes * Telephone Encounter - Kesha Lindsay RN - 04/28/2020 4:20 PM PERSONNEL SUPERVISOR Patient calling states she did not stop taking the sertraline when she was or while she was breast feeding. She is no longer . ONNEL SUPERVISOR * Telephone Encounter - Roxanna Cronin RN - 04/28/2020 3:46 PM CST LVM for pt to return call to office. See Mitzi's note below. ONNEL SUPERVISOR * Telephone Encounter - Mitzi Cardenas APN, CNP - 04/28/2020 2:26 PM PERSONNEL SUPERVISOR Please clarify if she is still . I believe she stopped this when she became ? ONNEL SUPERVISOR * Telephone Encounter - Roxanna Cronin RN - 04/28/2020 10:44 AM CST Medication failed the protocol, provider to review and approve the medication order if appropriate. Requested Prescriptions Pending Prescriptions Disp Refills sertraline (ZOLOFT) 100 MG Tablet [Pharmacy Med Name: SERTRALINE HCL 100 MG TABLET] 180 Tab 3 Sig: TAKE 2 TABLETS BY MOUTH EVERY DAY Not Delegated - Psychiatry: Antidepressants Failed - 04/27/2020 3:00 PM Failed - This refill cannot be delegated Passed - Valid encounter within last 12 months Past Office Visits Recent Outpatient Visits 2 months ago Thrombocytopenia (HCC) [facility] - Family Medicine - Mitzi Rodriguez APN, CNP 11 months ago Fever and chills [facility] - Mitzi Rodriguez APN, TIMBER SUPERVISOR 1 year ago Endometriosis [facility] - Mitzi Rodriguez APN, TIMBER SUPERVISOR Upcoming Appointments 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 Showing future appointments within next 90 days with a meds authorizing provider and meeting all other requirements ONNEL SUPERVISOR * Telephone Encounter - Alannah Pressley RN - 04/28/2020 10:43 AM CST Telemedicine appt 03/29/20. Last Rx 03/02/2019 #180 with 3 refills. Medication failed the protocol, provider to review and approve the medication order if appropriate. Requested Prescriptions Pending Prescriptions Disp Refills sertraline (ZOLOFT) 100 MG Tablet [Pharmacy Med Name: SERTRALINE HCL 100 MG TABLET] 180 Tab 3 Sig: TAKE 2 TABLETS BY MOUTH EVERY DAY Not Delegated - Psychiatry: Antidepressants Failed - 04/27/2020 3:00 PM Failed - This refill cannot be delegated Passed - Valid encounter within last 12 months Past Office Visits Recent Outpatient Visits 2 months ago Thrombocytopenia (HCC) [facility] - Mitzi Rodriguez APN, TIMBER SUPERVISOR 11 months [facility], TIMBER SUPERVISOR 1 year [facility] Endometriosis [facility] - Mitzi Rodriguez APN, TIMBER SUPERVISOR Upcoming Appointments 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 Showing future appointments within next 90 days with a meds authorizing provider and meeting all other requirements ONNEL SUPERVISOR documented in this encounter Plan of Treatment Not on file documented as of this encounter Visit Diagnoses Diagnosis Depression, unspecified depression type documented in this encounter Additional Health Concerns Infection Onset Date Last Indicated Resolved Time Respiratory Rule-Out 05/16/2024 05/16/2024 025 2:53 PM PERSONNEL SUPERVISOR Influenza 05/16/2024 05/16/2024 05/23/2024 12:1 7 AM PERSONNEL SUPERVISOR Assessment Noted Time PHQ-9 Depression Total Score: 0 02/04/20 20 11:10 AM PERSONNEL SUPERVISOR documented as of this encounter Care Teams Receiving Associate Store Relationship Specialty Start Date End Date Mitzi Cardenas APRN, ARNOL [address] [phone] PCP - General Advanced Practice Nurse 01/23/19 documented as of this encounter
--- OUTSIDE RECORDS SUMMARY | 2024-09-04 09:41 | XMS_ITS | Data Portability ---
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 this patient is a 26-year-ol d female with longstandi ng pelvic pain. Her pain is previously been treated medically with control pills, IUD, and other progestero ne only contracept shantal. She has continued to have pain throughout these treatments . She had a recent pelvic ultrasound this is essentiall y normal. We discussed endometrio sis. We discussed the treatment. We discussed surgical options. We discussed definitive surgical treatment. We talked about some off-label uses of GnRH agonist. Patient has terrible PMDD. She has severe PMDD and is considerin g hysterecto my. We talked about taking ovaries out and a 26-year-ol d female at [employer] ce. We talked about treatment of libido. Talked about the use of testostero ne. We spent over 30 minutes on the phone together. More than 50% was counseling . We agreed that the use of a GnRH agonists with hormone replacemen t therapy would give her an idea of what life would be like after hysterecto my and hormone replacemen t therapy. 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 I have samples for 1 month of Myfembree. she return in 1 month. [id number] Sheldon Shelton MD [facility] [address],[facility] [place] [address] 10/21/2021 14:42:38 10/21/2021 15:43:28 Reduced libido 3433717 R68.82 This patient is a 26-year-ol d female presents for follow-up on pelvic pain. We discussed treatment options in great detail. We had started my fimbria as an off-label treatment Of endometrio sis in severe PMDD. We discussed progestero ne only treatments . We discussed contracept clinton combined Combined hormone treatment. Patient has read about testostero ne therapy and treatment of endometrio sis. She also has decreased libido. Patient is not opposed any masculiniz ation. Talked about oz delivery of the androgen. We spent over 40 minutes face-to-fa ce. More than 50% was counseling . Patient understand s this is off-label use of testostero ne for treatment of libido and pelvic pain. She is also going to use the Nexplanon implant as a treatment for pelvic pain. Pain in pelvis 13178884 R10.2 Endometrio sis of pelvis 87808004 N80.3 [id number] Sheldon Shelton MD [facility] [address] [address] 11/04/2021 16:09:29 11/04/2021 17:33:56 Contraception care management [id number] Z30.9 Nexplanon inserted without complicati ons. She tolerated well. [id number] Sheldon Shelton MD [facility] [address],[place] [address] 02/25/2022 15:24:54 02/26/2022 16:16:00 Reduced libido 6893813 R68.82 Briefly discussed low libido. Patient takes Zoloft and has the Nexplanon subdermal implant. These may be factors and her decreased libido. She is currently doing the magnetic therapy for depression . Meeting got cut short because of urgent matter in Labor and delivery. No charge [id number] Sheldon Shelton MD [facility] [address],[place] [address] 03/11/2022 14:23:30 03/12/2022 14:20:25 Reduced libido 8818083 R68.82 Briefly discussed low libido. Patient takes Zoloft and has the Nexplanon subdermal implant. These may be factors and her decreased libido. She is currently doing the magnetic therapy for depression . Meeting got cut short because of urgent matter in Labor and delivery. No charge [id number] Sheldon Shelton MD [facility] [address],[place] [address] 04/01/2022 14:15:58 04/02/2022 14:55:39 Reduced libido 4863603 R68.82 Briefly discussed low libido. Patient takes Zoloft and has the Nexplanon subdermal implant. These may be factors and her decreased libido. She is currently doing the magnetic therapy for depression . Meeting got cut short because of urgent matter in Labor and delivery. No charge [id number] Sheldon Shelton MD [facility] [address],[place] [address] 04/15/2022 14:24:08 04/15/2022 15:05:29 Reduced libido 5455123 R68.82 Briefly discussed low libido. Patient takes Zoloft and has the Nexplanon subdermal implant. These may be factors and her decreased libido. She is currently doing the magnetic therapy for depression . Meeting got cut short because of urgent matter in Labor and delivery. No charge [id number] Sheldon Shelton MD [facility] [address],[place] [address] 04/29/2022 15:00:38 04/30/2022 11:28:54 Reduced libido 3652491 R68.82 Briefly discussed low libido. Patient takes Zoloft and has the Nexplanon subdermal implant. These may be factors and her decreased libido. She is currently doing the magnetic therapy for depression . Meeting got cut short because of urgent matter in Labor and delivery. No charge [id number] Sheldon Shelton MD [facility] [address],[place] [address] 05/13/2022 14:37:34 05/13/2022 18:02:51 Reduced libido 9952766 R68.82 Briefly discussed low libido. Patient takes Zoloft and has the Nexplanon subdermal implant. These may be factors and her decreased libido. She is currently doing the magnetic therapy for depression . Meeting got cut short because of urgent matter in Labor and delivery. No charge [id number] Sheldon Shelton MD [facility] [address],[place] [address] 06/08/2022 16:30:28 06/08/2022 17:25:09 Reduced libido 1265471 R68.82 Briefly discussed low libido. Patient takes Zoloft and has the Nexplanon subdermal implant. These may be factors and her decreased libido. She is currently doing the magnetic therapy for depression . Meeting got cut short because of urgent matter in Labor and delivery. No charge [id number] Sheldon Shelton MD [facility] [address],[place] [address] 06/24/2022 14:00:01 06/25/2022 10:17:27 Injection given [id number] Z98.890 Reduced libido 3425323 R 68.82 27-year-ol d female with decreased libido. We have been treating with testostero ne. We talked about the efficacy of the medication . She is unsatisfie d with the efficacy would like to increase the dose of the medication . We agreed to that. She understand s the risks of masculiniz ation to higher doses of testostero ne. I think this is a reasonably safe dose. She will be on 40 Mg q.2 weeks. This is 1/5 of the males dose. She will follow-up in a couple of months. She is not concerned about masculiniz ation. She is non binary. [id number] Sheldon Shelton MD [facility] [address],[place] [address] 09/30/2022 15:27:27 09/30/2022 16:32:25 Pain in pelvis 36249912 R10.2 this patient is a 27-year-ol d female with a long-stand ing history of pelvic pain and endometrio sis. She has failed Endometrio sis surgeries x2, failed multiple medical treatments , including the Nexplanon implant which she has had for the past 10 months. Patient would like definitive surgical treatment. We talked about definitive surgical treatment and what it means. We talked about variations of the hysterecto my. Talked about oophorecto my. We agreed ultimately for total laparoscop ic hysterecto my bilateral salpingect luly. Made a decision to perform surgery today. We spent more than 40 minutes face-to-fa ce. More than 50% was counseling . Will proceed with hysterecto my. Endometrio sis of pelvis 75543317 N80.9 [id number] Sheldon Shelton MD [facility] [address],[place] [address] 10/25/2022 15:01:47 10/27/2022 10:47:58 Pain in pelvis 76748656 R10.2 this patient is a 27-year-ol d female with pelvic pain and endometrio sis. We have agreed to perform laparoscop ic hysterecto my and bilateral salpingect luly. She understand s the risks, benefits, and alternativ es. She has completed the informed consent process and is ready to proceed. [id number] MD Manisha Flores [address],[place] [address] 11/05/2022 09:55:08 11/05/2022 09:57:11 [id number] Sheldon Shelton MD [facility] [address],[place] [address] 11/11/2022 17:12:20 11/11/2022 18:13:05 Postoperative care 959750442 Z48.89 This patient is a 27-year-ol d female who is 1 week postop. She is postop from a total laparoscop ic hysterecto my and bilateral salpingect luly. She is recovering normally. Her incisions are clean dry and intact. She is doing very well. She will follow up for Nexplanon removal next week. [id number] Sheldon Shelton MD [facility] [address],[place] [address] 11/19/2022 15:15:07 11/19/2022 16:15:36 Contraception care management 064921233 Z30.9 Nexplanon removed without complicati ons. She tolerated well. [id number] Meena Cespedes [facility] [address],[place] [address] 05/05/2023 11:52:56 05/05/2023 12:12:48 Venereal disease screening 922614788 Z11.3 STD urine sentWill reach out with resultsDec lined serum std panel Time spent in visit is a total of 15 mins with at least 50% of visit consisting of counseling and review of plan of care. [id number] Sheldon Shelton MD [facility] [address],[place] [address] 08/10/2023 13:29:38 08/11/2023 23:52:41 Pain in pelvis 07266042 R10.2 28-year-ol d female with pelvic pain. She has history of endometrio sis hysterecto my. Her pelvic pain has recurred. Sharp left-sided pain. She is pain with a full bladder. She Has urinary urgency. She had previously agreed to get evaluated for interstiti al cystitis. she did not follow-up. Her symptoms have become worse. She would like not to be evaluated for interstiti al cystitis. We agreed to send to urogynecol rubina. She will have a pelvic ultrasound and return to see me. Spent over 20 minutes face-to-fa ce. More than 50% was counseling . [id number] Sheldon Shelton MD [facility] [address] [address] 08/15/2023 13:49:56 08/15/2023 14:36:07 Pain in pelvis 83903578 R10.2 28-year-ol d female with pelvic pain. She has history of endometrio sis hysterecto my. Her pelvic pain has recurred. Sharp left-sided pain. She is pain with a full bladder. She Has urinary urgency. She had previously agreed to get evaluated for interstiti al cystitis. she did not follow-up. Her symptoms have become worse. She would like not to be evaluated for interstiti al cystitis. We agreed to send to urogynecogena cespedes. She will have a pelvic ultrasound and return to see me. Spent over 20 minutes face-to-fa ce. More than 50% was counseling . [id number] Sheldon Shelton MD [facility] [address],[place] [address] 08/18/2023 16:13:14 08/19/2023 04:51:11 Pain in pelvis 03269879 R10.2 28-year-ol d female presents for follow-up on pelvic pain and ultrasound . Ultrasound is unchanged. It is essentiall y normal post hysterecto my ultrasound . She continues to have severe pelvic pain. We talked about further treatment of severe pelvic pain talked about physical therapy. Talked about more surgical treatment. Talked about referral to pelvic pain expert. Talked about GnRH agonist. She is going to consider these treatment options further. She made no decision about the pelvic pain. We do suspect interstiti al cystitis. She is going to follow-up on referral for interstiti al cystitis evaluation . This referral was reopened and sent to staff. Health Concerns Section Related Observation LastModified by Organization Detai ls LastModified Time None Recorded Concern Status LastModified by Organization Details LastModified Time None Recorded Advance Directives Directive N: Payers Encounter Date Sequence Insurance Name Policy Number Policy Orosco Covered Member ID Orosco Member ID Guarantor Name 11/19/[address] [facility] [facility]NAGEMENT - YOVANI Lerner [id number] Rose Lerner 05/05/2023 1 [facility] [place] BENEF[employer] MANAGEMENT - CIGCATIE Lerner [id number] Rose Lerner 08/10/2023 1 [facility] [facility] [place] [employer] - CIGCATIE Lerner [id number] Rose Lerner 08/15/2023 1 [facility] [place] [employer] - [employer] Brittanie Lerner [id number] Rose Lerner 08/18/2023 1 [facility] [facility] [place] [employer] - [employer] Brittanie Lerner [id number] Rose Lerner Notes Date Note Type Note Provider Name and Address Organization Details Recorded Time 11/19/2022 text/html 27 yo female presents for nexplanon removal Sheldon Shelton MD [address], [place], [address], [facility] 11/19/2022 16:06:36 05/05/2023 text/html Here today for updated STD screening.No sx'sNew partnerOnly wants std urine sent Health Hx was reviewed and updated as reported in chart. Neg pain of abd/pelvis/flankNeg urinary sx'sNeg GI sx'sNeg N/V/F/C/DNeg Vag d/c, odor, irritation, itching Meena Cespedes, [facility]- [address], [place], [address], [facility] 05/05/2023 12:11:33 08/10/2023 text/html 28-year-old fema le with pelvic pain. She has history of endometriosis hysterectomy. Her pelvic pain has recurred. Sharp left-sided pain. She is pain with a full bladder. She Has urinary urgency. She had previously agreed to get evaluated for interstitial cystitis. she did not follow-up. Her symptoms have become worse. She would like not to be evaluated for interstitial cystitis. We agreed to send to urogynecology. She will have a pelvic ultrasound and return to see me. Spent over 20 minutes [id number]. More than 50% was counseling. Sheldon Shelton MD [address], [place], [address], [facility] 08/11/2023 22:14:13 08/18/2023 text/html 28-year-old femjudy phillips presents for follow-up on pelvic pain and ultrasound. Ultrasound is unchanged. It is essentially normal post hysterectomy ultrasound. She continues to have severe pelvic pain. We talked about further treatment of severe pelvic pain talked about physical therapy. Talked about more surgical treatment. Talked about referral to pelvic pain expert. Talked about GnRH agonist. She is going to consider these treatment options further. She made no decision about the pelvic pain. We do suspect interstitial cystitis. She is going to follow-up on referral for interstitial cystitis evaluation. This referral was reopened and sent to staff. Sheldon Shelton MD [address], [place], [address], [facility] 08/18/2023 21:08:09 OBGyn Episode Ob Episode Information Episode Created Date Number of Fetuses Patient Bloodtype Patient rh Status Prepregnancy Weight lbs Domestic Partner Domestic Partner Phone Father Name Yard Coupler Status 07/13/19 20 1 O Positive 136 CLOSED Fetus Data First Name Last Name Admitted to NICU Weight (g) Sex Living Outcome Pediatric Complications Fetus ID Race Codes Race Delivery Type 3572.03 7 M true Full Term 584 Vaginal Delivery Segundo Calculation Initial Segundo Date Initial Exam Date Initial Exam Provider Initial Ultrasound Date Last Menstrual Period Date Ultra Sound Weeks Gestation 09/24/2019 07/13/2019 02/14/2019 12/13/2018 8 Eighteen To Twenty Week Segundo Update Ultra Sound Date Fundal Height At Umbil Quickening Date Ultra Sound Latest Weeks Gestation Final Segundo Confirmed By Final Segundo Confirmed Date Final Segundo Date Ultra Sound Latest Days Gestation 0 [email or web address] 07/13/2019 09/19/19 20 0 Pre-trudi Flowsheet Flowsheet Date 07/13/2019 Leon Score Blood Edema Fundus Height Fundus Units Glucose Ketones Leukocytes Nitrite Labor Signs Protein Cervic Dilation Cervic Effacement Cervic Station 31 Type Weight in lbs Pre/Post Dialysis Refused Weight 165.837025352530 BP Diastolic BP Location Tested BP Systolic BP Type 73 107 sitting Fetus Heart Rate Present A 155 Fetus Movement A Yes Comments Pt c/o discomfort , painful spot on stomach , 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, 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, 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 or 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, continue to monitor Flowsheet Date 07/31/2019 Leon Score Blood Edema Fundus Height Fundus Units Glucose Ketones Leukocytes Nitrite Labor Signs Protein Cervic Dilation Cervic Effacement Cervic Station Type Weight in lbs Pre/Post Dialysis Refused BP Diastolic BP Location Tested BP Systolic BP Type Fetus Heart Rate Present Fetus Movement Comments Flowsheet Date 07/31/2019 Leon Score Blood Edema Fundus Height Fundus Units Glucose Ketones Leukocytes Nitrite Labor Signs Protein Cervic Dilation Cervic Effacement Cervic Station none 32 trace Type Weight in lbs Pre/Post Dialysis Refused Weight 164.79593131825 BP Diastolic BP Location Tested BP Systolic BP Type 70 106 Fetus Heart Rate Present A 155 Present Fetus Movement Comments growth us after visit today, Flowsheet Date 08/14/2019 Leon Score Blood Edema Fundus Height Fundus Units Glucose Ketones Leukocytes Nitrite Labor Signs Protein Cervic Dilation Cervic Effacement Cervic Station neg none 34 trace Type Weight in lbs Pre/Post Dialysis Refused Weight 168.406469965398 BP Diastolic BP Location Tested BP Systolic BP Type 70 108 Fetus Heart Rate Present A 144 Present Fetus Movement A Yes Comments patient states that having s ome rib pain, not sleeping and nausea, benadryl and unisom not helping Rx for ambien given GBS next visit Flowsheet Date 08/22/2019 Leon Score Blood Edema Fundus Height Fundus Units Glucose Ketones Leukocytes Nitrite Labor Signs Protein Cervic Dilation Cervic Effacement Cervic Station neg none 34 trace Type Weight in lbs Pre/Post Dialysis Refused Weight 166.558442953384 BP Diastolic BP Location Tested BP Systolic BP Type 69 101 Fetus Heart Rate Present A 145 Fetus Movement A Yes Comments declined cervical exam, GBS done, labor precautions Flowsheet Date 08/31/2019 Leon Score Blood Edema Fundus Height Fundus Units Glucose Ketones Leukocytes Nitrite Labor Signs Protein Cervic Dilation Cervic Effacement Cervic Station neg trace 36 trace 0cm 60% -2 Type Weight in lbs Pre/Post Dialysis Refused Weight 169.405184664142 BP Diastolic BP Location Tested BP Systolic BP Type 73 108 Fetus Heart Rate Present A 145 Fetus Movement A Yes Comments patient states that having p ain, pressure, BH contractions, discharge, and swelling, labor precautions Flowsheet Date 09/07/2019 Leon Score Blood Edema Fundus Height Fundus Units Glucose Ketones Leukocytes Nitrite Labor Signs Protein Cervic Dilation Cervic Effacement Cervic Station neg trace 37 trace 0cm 70% -2 Type Weight in lbs Pre/Post Dialysis Refused Weight 167.380397929014 BP Diastolic BP Location Tested BP Systolic BP Type 78 118 Fetus Heart Rate Present A 145 Fetus Movement A Yes Comments patient states that having c ramping, discharge, and swelling, labor precautions Flowsheet Date 03/13/2019 Leon Score Blood Edema Fundus Height Fundus Units Glucose Ketones Leukocytes Nitrite Labor Signs Protein Cervic Dilation Cervic Effacement Cervic Station none 12 trace Type Weight in lbs Pre/Post Dialysis Refused Weight 136.292975933737 BP Diastolic BP Location Tested BP Systolic BP Type 67 107 sitting Fetus Heart Rate Present A 160 Fetus Movement A No Comments G1 at 12+6 by sure LMP=8 wee k U/S. She c/o severe VALDERRAMA, tylenol doesn't help. Rx being sent for fioricet. She is taking Zoloft 100 mg, decreased from 200 mg prior to . Depression and anxiety have worsened so she will go back to 200 mg. She denies SI/HI. She declines refills from us on Zoloft as her PCP has been prescribing it Flowsheet Date 04/04/2019 Leon Score Blood Edema Fundus Height Fundus Units Glucose Ketones Leukocytes Nitrite Labor Signs Protein Cervic Dilation Cervic Effacement Cervic Station Type Weight in lbs Pre/Post Dialysis Refused Weight 145.8170149802 BP Diastolic BP Location Tested BP Systolic BP Type 61 93 sitting Fetus Heart Rate Present A 157 Fetus Movement A No Comments Pt having a hard time gettin g comfortable the last few days. She had started using a maternity pillow. I have asked her to try a smaller pillow in between her legs to see if any improvement. If not she will call us. Flowsheet Date 05/03/2019 Leon Score Blood Edema Fundus Height Fundus Units Glucose Ketones Leukocytes Nitrite Labor Signs Protein Cervic Dilation Cervic Effacement Cervic Station none 21 trace Type Weight in lbs Pre/Post Dialysis Refused Weight 150.241351288805 BP Diastolic BP Location Tested BP Systolic BP Type 70 160 sitting Fetus Heart Rate Present A 135 Fetus Movement A Yes Comments She has daily migraine. Emma icet helps. She also c/o worsening depression / anxiety. EPDS 21 today. She denies SI/HI but is having thoughts of self harm and cutting but denies doing that recently. She is taking Zoloft 150 mg daily and has used 200 mg in past with success, so she'll go ahead and increase to 200 mg and refer to psychiatry Flowsheet Date 05/30/2019 Leon Score Blood Edema Fundus Height Fundus Units Glucose Ketones Leukocytes Nitrite Labor Signs Protein Cervic Dilation Cervic Effacement Cervic Station trace trace Type Weight in lbs Pre/Post Dialysis Refused Weight 155.92297285607 BP Diastolic BP Location Tested BP Systolic BP Type 68 104 sitting Fetus Heart Rate Present Fetus Movement A Yes Comments OB [id number] pt states that valderrama ving nausea, vomiting, cramping, normal discharge, dizziness, dry and rash on hands, feeling better on zoloft, anatomy complete Flowsheet Date 06/29/2019 Leon Score Blood Edema Fundus Height Fundus Units Glucose Ketones Leukocytes Nitrite Labor Signs Protein Cervic Dilation Cervic Effacement Cervic Station none trace Type Weight in lbs Pre/Post Dialysis Refused Weight 156.086016494190 BP Diastolic BP Location Tested BP Systolic BP Type 65 99 sitting Fetus Heart Rate Present Fetus Movement A Yes Comments OB [id number] pt states that valderrama ving little pelvic pain, leg pain, discharge and not sleeping us today rpt 4 weeks Flowsheet Date 09/14/2019 Leon Score Blood Edema Fundus Height Fundus Units Glucose Ketones Leukocytes Nitrite Labor Signs Protein Cervic Dilation Cervic Effacement Cervic Station neg none 37 trace 1cm 60% -3 Type Weight in lbs Pre/Post Dialysis Refused Weight 169.448412896744 BP Diastolic BP Location Tested BP Systolic BP Type 80 115 Fetus Heart Rate Present A 133 Present Fetus Movement A Yes Comments PATIENT STATES THAT HAVING S OME PRESSURE, DISCHARGE AND THINK HAVING BLOODY DISCHARGE AND SOME SWELLING, labor precautions, pt would like induction reviewed increased risk of , ok to cancel if she decides. plan cervadil at 39.6 weeks Flowsheet Date 11/20/2019 Leon Score Blood Edema Fundus Height Fundus Units Glucose Ketones Leukocytes Nitrite Labor Signs Protein Cervic Dilation Cervic Effacement Cervic Station Type Weight in lbs Pre/Post Dialysis Refused Weight 142.525972194855 BP Diastolic BP Location Tested BP Systolic BP Type 65 117 Fetus Heart Rate Present Fetus Movement Comments Flowsheet Date 12/18/2019 Leon Score Blood Edema Fundus Height Fundus Units Glucose Ketones Leukocytes Nitrite Labor Signs Protein Cervic Dilation Cervic Effacement Cervic Station Type Weight in lbs Pre/Post Dialysis Refused Weight 142.484905112895 BP Diastolic BP Location Tested BP Systolic BP Type 62 98 Fetus Heart Rate Present Fetus Movement Comments Flowsheet Date 01/18/2020 Leon Score Blood Edema Fundus Height Fundus Units Glucose Ketones Leukocytes Nitrite Labor Signs Protein Cervic Dilation Cervic Effacement Cervic Station Type Weight in lbs Pre/Post Dialysis Refused Weight 142.420603621746 BP Diastolic BP Location Tested BP Systolic BP Type 82 114 Fetus Heart Rate Present Fetus Movement Comments Menstrual History Last Menstrual Date Menses Monthly On Bcp Conception Prior Menses Frequency Hcg Plus Date Menarche Onset Age 0912/13/2018 Delivery Information Delivery Date Delivery Type Labor Anesthesia Weeks Gestation Incision Type Labor Labor Length Hrs Delivered By Post Complications Tubal Sterilization Discharge Date Comments 0 [facility] 39.4 false [id number] GBS+ Discharge Information Feeding Method Contraceptive Method Maternal HG B and HCT Levels Ob Episode Information Episode Created Date Number of Fetuses Patient Bloodtype Patient rh Status Prepregnancy Weight lbs Domestic Partner Domestic Partner Phone Father Name Yard Coupler Status 10/02/19 20 1 DELETED Segundo Calculation Initial Segundo Date Initial Exam Date Initial Exam Provider Initial Ultrasound Date Last Menstrual Period Date Ultra Sound Weeks Gestation 0 Eighteen To Twenty Week Segundo Update Ultra Sound Date Fundal Height At Umbil Quickening Date Ultra Sound Latest Weeks Gestation Final Segundo Confirmed By Final Segundo Confirmed Date Final Segundo Date Ultra Sound Latest Days Gestation 0 0 Menstrual History Last Menstrual Date Menses Monthly On Bcp Conception Prior Menses Frequency Hcg Plus Date Menarche Onset Age Delivery Information Delivery Date Delivery Type Labor Anesthesia Weeks Gestation Incision Type Labor Labor Length Hrs Delivered By Post Complications Tubal Sterilization Discharge Date Comments 0 39.4 Discharge Information Feeding Method Contraceptive Method Maternal HG B and HCT Levels
[2024-09-04] MEDS: ONDANSETRON HCL ODT 4 MG TABLET SUBLINGUAL (09:48)
== END 2024-09-04 10:25 | disposition short-term general hospital (02) ==
PROVIDERS: Emergency Provider Nurse Practitioner Family
DX: R11.2 Nausea with vomiting, unspecified (principal); R19.7 Diarrhea, unspecified; F12.90 Cannabis use, unspecified, uncomplicated; J45.909 Unspecified asthma, uncomplicated
CPT/HCPCS: 99213; A9270; G0463

== ENCOUNTER 2025-01-19 08:36 | Emergency (ER) | payer OTHER, SELFPAY ==
--- OUTSIDE RECORDS SUMMARY | 2025-01-19 08:39 | XMS_ITS | Clinical Summary ---
Author Organization [facility] Address [address] [place] [address] Phone Care Team Providers Care Unhairing Machine Operator Name Role Phone Mitzi Cardenas APRN, VICE PRESIDENT FOR PHILANTHROPY Primary Care Prov ider Allergies Active Allergy Reactions Criticality Noted Date Comments Amoxicillin Hives 07/10/2020 Amoxicillin-Pot Clavulanate Unknown 12/31/19 09 Penicillins Unknown 12/30/2008 Medications * This document contains information received from the source organization and may not represent a complete record from that organization. butalbital-aceta minophen-caffein e (FIORICET, ESGIC) 50-325-40 MG TabletIndication s:Intractable episodic headache, unspecified headache type Take 1 Tab by mouth every 4 hours as needed for Headaches or Migraine. 30 Tab 1 02/02/20 19 Active Desvenlafaxine Succinate 50 MG TABLET SR 24 HR Take 50 mg by mouth daily. Active albuterol (ProAir HFA) 108 (90 Base) MCG/ACT Aerosol Solution take 2 Puffs by inhalation every 4 hours as needed for Wheezing or Cough. 8.5 g 03/09/20 23 Active nortriptyline (PAMELOR) 25 MG Capsule 05/15/19 25 Active cyclobenzaprine (FLEXERIL) 5 MG Tablet 1 tablet twice a day 04/10/19 25 Active propranolol (INDERAL) 10 MG Tablet 05/15/19 25 Active FLUoxetine (PROzac) 40 MG Capsule Take 40 mg by mouth daily. Active ondansetron (ZOFRAN-ODT) 4 MG TABLET DISPERSIBLE Take 1 Tablet by mouth every 8 hours as needed for Nausea - 1st line. 10 Tablet 09/05/19 25 Active omeprazole (PriLOSEC) 40 MG CAPSULE DELAYED RELEASEIndicatio ns:Gastroesophag eal reflux disease, unspecified whether esophagitis present TAKE 1 CAPSULE BY MOUTH EVERY DAY 90 Capsule 1 01/15/20 25 Active montelukast (SINGULAIR) 10 MG TabletIndication s:Mild intermittent asthma without complication TAKE 1 TABLET BY MOUTH EVERY DAY IN THE EVENING 90 Tablet 1 01/15/20 25 Active omeprazole (PriLOSEC) 40 MG CAPSULE DELAYED RELEASEIndicatio ns:Gastroesophag eal reflux disease, unspecified whether esophagitis present TAKE 1 CAPSULE BY MOUTH EVERY DAY 90 Capsule 1 07/13/19 25 025 Discontinued montelukast (SINGULAIR) 10 MG TabletIndication s:Mild intermittent asthma without complication TAKE 1 TABLET BY MOUTH EVERY DAY IN THE EVENING 90 Tablet 1 07/14/19 25 025 Discontinued Active Problems Problem Noted Date Diagnosed Date [...] Encounters Date Type Department Care Team Description 01/13/2025 Refill [facility] [address] [place] [address] Mitzi Cardenas, RADIOGRAPHER CARDIAC CATHETERIZATION, VICE PRESIDENT FOR PHILANTHROPY Medication Refill from Last 3 Months Immunizations Immunization Administration Dates Next Due Covid-19, Mrna, Lnp-s, Pf, 3 0 Mcg/0.3 Ml Dose (LaserLeap) 06/17/2020 DTAP VACCINE, UNSPECIFIED FORMULATION 07/30/1998 ,05/06/1994,1993 [...] Comments:hookah Alcohol Use Standard Drinks/Week Comments Yes 3 (1 standard drink = 0.6 oz pur e alcohol) daily [employer] Utilities Answer Date Recorded In the past 12 months has e [employer], oil, or [employer] threatened to shut off services in your home? No 04/15/2023 Social Connection and Isolation Panel Answer Date Recorded In a typical week, how many times do you talk on the phone with family, friends, or neighbors? Once a week 04/15/2023 How often do you get togethe r with friends or relatives? Once a week 04/15/2023 How often do you attend chur ch or nondenominational services? Never 04/15/2023 Do you belong to any clubs o r organizations such as mu-ism groups, unions, fraternal or athletic groups, or [...] Total Score - Questions 1-9 0 06/26 [facility] - Occupational Stress Questionnaire Answer Date Recorded [...] place to sleep or slept in a long term (including now)? No 04/15/2023 Education Answer Date Recorded What is the highest level of school you have completed or the highest degree you have received? Bachelor's degree (e.g., BA, AB, BS) 02/03/2020 Sexually Active Control Partners Comments Yes Male Comments No Sex and Gender Information Value Date Recorded Sex Assigned at Female 03/06/2023 10:14 PM AERONAUTICAL TEST ENGINEER Legal Sex Female 3:51 AM AERONAUTICAL TEST ENGINEER Gender Identity Other 04/15/2023 8:49 PM AERONAUTICAL TEST ENGINEER Sexual Orientation Something else 03/06/2023 10 :14 PM AERONAUTICAL TEST ENGINEER Occupation Industry Job Start Date Job End Date [employer] Not on file Not on file Not on file Last Filed Vital Signs Vital Sign Reading Time Taken Comments Blood Pressure 152/54 09/04/2024 3:10 PM CDT Pulse 67 09/04/2024 3:10 PM CDT Temperature 36.9 C (98.5 F) 09/04/2024 10:53 AM CDT Respiratory Rate 18 09/04/2024 3:10 PM CDT Oxygen Saturation 99% 09/04/2024 3:10 PM CDT Inhaled Oxygen Concentration - - Weight 63.5 kg (140 lb) 09/04/2024 11:03 AM CDT Height 167.6 cm (5' 6) 09/04/2024 11:03 AM CDT Body Mass Index 22.6 09/04/2024 11:03 AM CDT Plan of Treatment Health Maintenance Due Date Last Done Comments Hepatitis C Virus (HCV) Screening 1993 Human Papillomavirus (HPV) Immunization (2 - 2-dose series) 2008 10/18/2007 Pneumococcal Immunization Combined (1 of 2 - PCV) 2012 Influenza Immunization (#1) 2024 12/0 06/2022, 02/28/2023, 01/14/2021, Additional history exists SARS-COV-2 Immunization ( - 2024- season) 2024 02/28/2023, 03/04/2021, 07/15/2020, Additional history exists DTaP/Tdap/Td Immunization (7 - Td or Tdap) 07/29/2030 07/29/2020, 07/20/2005, 07/30/1998, Additional history exists Respiratory Syncytial Virus (RSV) Immunization (Adult) (1 - 1-dose 75+ series) 2068 Hepatitis B Immunization Completed 999, 05/09/1998, 09/02/1997, Additional history exists Meningococcal Immunization (ACWY) Aged Out 10/18/2007 No longer eligible based on patient's age to complete this topic Rotavirus Immunization Aged Out No lo nger eligible based on patient's age to complete this topic Insurance [employer] [place] Advance Directives * Full Code (Latest Code Status on File) Date Activated Date Inactivated Comments 01/25/2020 12:03 PM 01/27/2020 2:13 PM CPR-Full T reatment: FULL ARREST: Attempt Resuscitation/CPR wit intubation and mechanical ventilation. PRE-ARREST: Use entire range of life support measures to stabilize the patient. Care Teams Unhairing Machine Operator Relationship Specialty Start Date End Date Mitzi Cardenas, RADIOGRAPHER CARDIAC CATHETERIZATION, VICE PRESIDENT FOR PHILANTHROPY [address] [phone] PCP - General Advanced Practice Nurse 01/23/19
--- OUTSIDE RECORDS SUMMARY | 2025-01-19 08:39 | XMS_ITS | Encounter Summary ---
Author Organization [facility] Address [address] [place] [address] Phone Care Team Providers Care Psychiatric Tech Name Role Phone Mitzi Cardenas APRN, CNP Primary Care Prov ider Reason for Visit * Reason Comments Medication Refill Encounter Details Date Type Department Care Team (Late st Contact Info) Description 04/27/2020 Refill [facility] - Family Medicine - [place] [address] [place] [phone] Mitzi Cardenas APRN, MECHANIC SOUND TECHNICIAN [address] [phone] Medication Refill Social History Tobacco Use Types [...] Sex Assigned at Female 03/06/2023 10:14 PM POWDER WORKER TNT Legal Sex Female 3:51 AM POWDER WORKER TNT Gender Identity Other 04/15/2023 8:49 PM POWDER WORKER TNT Sexual Orientation Something else 03/06/2023 10 :14 PM POWDER WORKER TNT Occupation Industry Job Start Date Job End Date [employer] Not on file Not on file Not on file documented as of this encounter Miscellaneous Notes * Telephone Encounter - Kesha Lindsay RN - 04/28/2020 4:20 PM POWDER WORKER TNT Patient calling states she did not stop taking the sertraline when she was or while she was breast feeding. She is no longer . ER WORKER TNT * Telephone Encounter - Roxanna Cronin RN - 04/28/2020 3:46 PM CST LVM for pt to return call to office. See Mitzi's note below. ER WORKER TNT * Telephone Encounter - Mitzi Cardenas APN, CNP - 04/28/2020 2:26 PM POWDER WORKER TNT Please clarify if she is still . I believe she stopped this when she became ? ER WORKER TNT * Telephone Encounter - Roxanna Cronin RN [...] CNP 11 months ago Fever and chills [facility] - Mitzi Rodriguez APN, MECHANIC SOUND TECHNICIAN 1 year ago Endometriosis [facility] - Mitzi Rodriguez APN, ARNOL Upcoming Appointments BODY SHOP MECHANIC - Recent and Past Visits Recent Visits Date Type Provider Dept 02/04/20 Telemedicine Mitzi Cardenas APN, CNP [facility] 05/21/19 [facility] Showing recent visits within past 460 days with a meds authorizing provider and meeting all other requirements Future Appointments No visits were found meeting these conditions. Showing future appointments within next 90 days with a meds authorizing provider and meeting all other requirements ER WORKER TNT * Telephone Encounter - Alannah Pressley RN [...] Outpatient Visits 2 months ago Thrombocytopenia (HCC) [facility] - Mitzi Rodriguez APN, MECHANIC SOUND TECHNICIAN 11 months ago Fever and chills [facility] - Mitzi Rodriguez APN, MECHANIC SOUND TECHNICIAN 1 year ago Endometriosis [facility] - Mitzi Rodriguez APN, ARNOL Upcoming Appointments BODY SHOP MECHANIC - Recent and Past Visits Recent Visits Date Type Provider Dept 02/04/20 Telemedicine Mitzi Cardenas APN, CNP [facility] 05/21/19 Office Visit Mitzi Cardenas APN, CNP [facility] Showing recent visits within past 460 days with a meds authorizing provider and meeting all other requirements Future Appointments No visits were found meeting these conditions. Showing future appointments within next 90 days with a meds authorizing provider and meeting all other requirements ER WORKER TNT documented in this encounter Plan of Treatment Not on file documented as of this encounter Visit Diagnoses Diagnosis Depression, unspecified depression type documented in this encounter Additional Health Concerns Infection Onset Date Last Indicated Resolved Time Respiratory Rule-Out 05/16/2024 05/16/2024 025 2:53 PM POWDER WORKER TNT Influenza 05/16/2024 05/16/2024 05/23/2024 12:1 7 AM POWDER WORKER TNT COVID - 19 09/04/2024 09/04/2024 09/04/2024 12:0 7 PM CDT Assessment Noted Time PHQ-9 Depression Total Score: 0 02/04/20 20 11:10 AM POWDER WORKER TNT documented as of this encounter Care Teams Psychiatric Tech Relationship Specialty Start Date End Date Mitzi Cardenas, BROADCAST TRAFFIC COORDINATOR, MECHANIC SOUND TECHNICIAN #[address] [phone] PCP - General Advanced Practice Nurse 01/23/19 documented as of this encounter
--- OUTSIDE RECORDS SUMMARY | 2025-01-19 08:39 | XMS_ITS | Encounter Summary ---
Author Organization [facility] Address [address] [place] [address] Phone Care Team Providers Care Dishing Machine Operator Name Role Phone Mitzi Cardenas APRN, CNP Primary Care Prov ider Reason for Visit * Reason Comments Medication Refill Encounter Details Date Type Department Care Team (Late st Contact Info) Description 07/15/2023 Refill [facility] - Family Medicine - [place] [address] [place] [phone] Mitzi Cardenas APRN, COSTUMER ASSISTANT [address] [phone] Medication Refill Social History Tobacco Use Types Packs/Day Years Used Date Smoking Tobacco: Former Cigarettes 0.3 3 0 03/28/2012 - 03/28/2015 Smokeless Tobacco: Never Comments:hookah Alcohol Use Standard Drinks/Week Comments Yes 0 (1 standard drink = 0.6 oz pur e alcohol) not typically [facility] Utilities Answer Date Recorded In the past 12 months has [employer] electric, gas, oil, or water company threatened [...] often do you attend chur ch or druze services? Never 04/15/2023 Do you belong to any clubs o r organizations such as rastafarian groups, unions, fraternal or athletic groups, or [...] Total Score - Questions 1-9 0 06/26 [facility] - Occupational Stress Questionnaire Answer Date [...] place to sleep or slept in a skilled nursing (including now)? No 04/15/2023 Education Answer Date Recorded What is the highest level of school you have completed or the highest degree you have received? Bachelor's degree (e.g., BA, AB, BS) 02/03/2020 Sexually Active Control Partners Comments Yes Male Comments No Sex and Gender Information Value Date Recorded Sex Assigned at Female 03/06/2023 10:14 PM AMERICAN INDIAN STUDIES PROFESSOR Legal Sex Female 3:51 AM AMERICAN INDIAN STUDIES PROFESSOR Gender Identity Other 04/15/2023 8:49 PM AMERICAN INDIAN STUDIES PROFESSOR Sexual Orientation Something else 03/06/2023 10 :14 PM AMERICAN INDIAN STUDIES PROFESSOR Occupation Industry Job Start Date Job End Date [employer] Not on file Not on file Not on file documented as of this encounter Miscellaneous Notes * Telephone Encounter - Roxanna Cronin RN - 07/15/2023 11:59 AM CDT Medication([facility]) [facility] Medication Refill Standing Order for Pediatricand [...] 05/25/23 Office Visit Marco A Jenkins MD [facility] 04/15/23 Office Visit Mitzi Cardenas APRN, COSTUMER ASSISTANT [facility] Showing recent visits within past 365 [...] Respiratory Rule-Out 05/16/2024 05/16/2024 025 2:53 PM AMERICAN INDIAN STUDIES PROFESSOR Influenza 05/16/2024 05/16/2024 05/23/2024 12:1 7 AM AMERICAN INDIAN STUDIES PROFESSOR COVID - 19 09/04/2024 09/04/2024 09/04/2024 12:0 7 PM CDT Assessment Noted Time PHQ-9 Depression Total Score: 0 07/11/19 21 1:24 PM CDT documented as of this encounter Care Teams Dishing Machine Operator Relationship Specialty Start Date End Date Mitzi Cardenas, POTATO SPOTTER, COSTUMER ASSISTANT #[address] [phone] PCP - General Advanced Practice Nurse 01/23/19 documented as of this encounter
--- OUTSIDE RECORDS SUMMARY | 2025-01-19 08:39 | XMS_ITS | Encounter Summary ---
Author Organization [facility] Address [address] [place] [address] Phone Care Team Providers Care Modern Languages Professor Name Role Phone Mitzi Cardenas APRN, CNP Primary Care Prov ider Reason for Visit * Reason Comments Medication Refill Encounter Details Date Type Department Care Team (Late st Contact Info) Description 07/30/2023 Refill [facility] - Family Medicine - [place] [address] [place] [phone] Mitzi Cardenas APRN, COOK CHEF [address] [phone] Medication Refill Social History Tobacco Use Types Packs/Day Years Used Date Smoking Tobacco: Former Cigarettes 0.3 3 0 03/28/2012 - 03/28/2015 Smokeless Tobacco: Never Comments:hookah Alcohol Use Standard Drinks/Week Comments Yes 0 (1 standard drink = 0.6 oz pur e alcohol) not typically [facility] Utilities Answer Date Recorded In the past 12 months has [employer] electric, gas, oil, or water company threatened [...] often do you attend chur ch or hinduism services? Never 04/15/2023 Do you belong to any clubs o r organizations such as amish groups, unions, fraternal or athletic groups, or [...] Total Score - Questions 1-9 0 06/26 [facility] - Occupational Stress Questionnaire Answer Date [...] Sex Assigned at Female 03/06/2023 10:14 PM PRESIDENT & CEO [employer] Legal Sex Female 3:51 AM PRESIDENT & CEO [employer] Gender Identity Other 04/15/2023 8:49 PM PRESIDENT & CEO [employer] Sexual Orientation Something else 03/06/2023 10 :14 PM PRESIDENT & CEO [employer] Occupation Industry Job Start Date Job End Date [employer] Not on file Not on file Not on file documented as of this encounter Miscellaneous Notes * Telephone Encounter - Alannah Chaparro RN - 07/31/2023 10:14 AM CDT Medication[facility]) [facility] Medication Refill Standing Order for [...] 05/25/23 Office Visit Marco A Jenkins MD [facility] 04/15/23 Office Visit Mitzi Cardenas APRN, COOK CHEF [facility] Showing recent visits within past 365 days and meeting all other requirements Future Appointments Date Type Provider Dept 10/14/23 Appointment Mitzi Cardenas APRN, ARNOL [facility] Showing future appointments within next 90 days and meeting all other requirements documented in this encounter Plan of Treatment Not on file documented as of this encounter Visit Diagnoses Diagnosis Mild intermittent asthma without complication Unspecified asthma documented in this encounter Additional Health Concerns Infection Onset Date Last Indicated Resolved Time Respiratory Rule-Out 05/16/2024 05/16/2024 025 2:53 PM PRESIDENT & CEO [employer] Influenza 05/16/2024 05/16/2024 05/23/2024 12:1 7 AM PRESIDENT & CEO [employer] COVID - 19 09/04/2024 09/04/2024 09/04/2024 12:0 7 PM CDT Assessment Noted Time PHQ-9 Depression Total Score: 0 07/11/19 21 1:24 PM CDT documented as of this encounter Care Teams Modern Languages Professor Relationship Specialty Start Date End Date Mitzi Cardenas APRN, ARNOL [address] [phone] PCP - General Advanced Practice Nurse 01/23/19 documented as of this encounter
[2025-01-19 08:40] VITALS: BP 116/69; PULSE 110; RESP 20; TEMP 36.9; O2SAT 100
--- OUTSIDE RECORDS SUMMARY | 2025-01-19 08:42 | XMS_ITS | Encounter Summary ---
Author Organization [facility] Address [address] [place] [address] Phone Care Team Providers Care Oil Rag Washer Name Role Phone Mitzi Cardenas APRN, CNP Primary Care Prov ider Reason for Visit * Reason Comments Medication Refill Encounter Details Date Type Department Care Team (Late st Contact Info) Description 06/28/2021 Refill [facility] - Family Medicine - [place] [address] [place] [phone] Mitzi Cardenas APRN, MANAGER HARDWARE [address] [phone] Medication Refill Social History Tobacco Use Types [...] Sex Assigned at Female 03/06/2023 10:14 PM STRAW HAT BRIM RAISER OPERATOR Legal Sex Female 3:51 AM STRAW HAT BRIM RAISER OPERATOR Gender Identity Other 04/15/2023 8:49 PM STRAW HAT BRIM RAISER OPERATOR Sexual Orientation Something else 03/06/2023 10 :14 PM STRAW HAT BRIM RAISER OPERATOR Occupation Industry Job Start Date Job End [...] Respiratory Rule-Out 05/16/2024 05/16/2024 025 2:53 PM STRAW HAT BRIM RAISER OPERATOR Influenza 05/16/2024 05/16/2024 05/23/2024 12:1 7 AM STRAW HAT BRIM RAISER OPERATOR COVID - 19 09/04/2024 09/04/2024 09/04/2024 12:0 7 PM CDT Assessment Noted Time PHQ-9 Depression Total Score: 0 07/11/19 21 1:24 PM CDT documented as of this encounter Care Teams Oil Rag Washer Relationship Specialty Start Date End Date Mitzi Cardenas, FILTER PRESS TENDER HEAD, MANAGER HARDWARE #[address] [phone] PCP - General Advanced Practice Nurse 01/23/19 documented as of this encounter
--- OUTSIDE RECORDS SUMMARY | 2025-01-19 08:42 | XMS_ITS | Data Portability ---
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 N/V/F/C/DNeg Vag d/c, odor, irritation, itching Meena Cespedes, [facility] [address], [place], [address], [facility] 05/05/2023 12:11:33 08/10/2023 text/html 28-year-old female with pelvic pain. She has history [...] to see me. Spent over 20 minutes [id number]. More than 50% was counseling. Sheldon Shelton MD [address], [place], [address], [facility] 08/11/2023 22:14:13 08/18/2023 text/html 28-year-old female presents for follow-up on pelvic pain [...] staff. Sheldon Shelton MD [address], [place], [address], [facility] 08/18/2023 21:08:09 OBGyn Episode Ob Episode Information Episode Created Date Number of Fetuses Patient Bloodtype Patient rh Status Prepregnancy Weight lbs Domestic Partner Domestic Partner Phone Father Name Leather Belt Shaper Status 07/13/19 20 1 O Positive 136 [...] Weight in lbs Pre/Post Dialysis Refused Weight 165.750040940597 BP Diastolic BP Location Tested BP Systolic BP Type 73 107 sitting Fetus Heart Rate Present A 155 Fetus Movement A Yes Comments Pt c/o discomfort , painful spot on stomach , jgumber, cop, 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 or hernia, [...] Weight in lbs Pre/Post Dialysis Refused Weight 164.07698241944 BP Diastolic BP Location Tested BP Systolic BP Type 70 106 Fetus Heart Rate Present A 155 Present Fetus Movement Comments growth us after visit today, Flowsheet Date 08/14/2019 Leon Score Blood Edema Fundus Height Fundus Units Glucose Ketones Leukocytes Nitrite Labor Signs Protein Cervic Dilation Cervic Effacement Cervic Station neg none 34 trace Type Weight in lbs Pre/Post Dialysis Refused Weight 168.819587320715 BP Diastolic BP Location Tested BP Systolic [...] Weight in lbs Pre/Post Dialysis Refused Weight 166.442234254233 BP Diastolic BP Location Tested BP Systolic [...] Weight in lbs Pre/Post Dialysis Refused Weight 169.271118756716 BP Diastolic BP Location Tested BP Systolic [...] Weight in lbs Pre/Post Dialysis Refused Weight 167.404170655583 BP Diastolic BP Location Tested BP Systolic [...] Weight in lbs Pre/Post Dialysis Refused Weight 136.782050406004 BP Diastolic BP Location Tested BP Systolic [...] Weight in lbs Pre/Post Dialysis Refused Weight 145.1772088953 BP Diastolic BP Location Tested BP Systolic [...] Weight in lbs Pre/Post Dialysis Refused Weight 150.636722822237 BP Diastolic BP Location Tested BP Systolic [...] Weight in lbs Pre/Post Dialysis Refused Weight 155.30665280118 BP Diastolic BP Location Tested BP Systolic BP Type 68 104 sitting Fetus Heart Rate Present Fetus Movement A Yes Comments OB [id number] pt states that valderrama ving nausea, vomiting, cramping, normal discharge, dizziness, dry and rash on hands, feeling better on zoloft, anatomy complete Flowsheet Date 06/29/2019 Leon Score Blood Edema Fundus Height Fundus Units Glucose Ketones Leukocytes Nitrite Labor Signs Protein Cervic Dilation Cervic Effacement Cervic Station none trace Type Weight in lbs Pre/Post Dialysis Refused Weight 156.320473153866 BP Diastolic BP Location Tested BP Systolic BP Type 65 99 sitting Fetus Heart Rate Present Fetus Movement A Yes Comments OB [id number] pt states that valderrama ving little pelvic pain, leg pain, discharge and not sleeping us today rpt 4 weeks Flowsheet Date 09/14/2019 Leon Score Blood Edema Fundus Height Fundus Units Glucose Ketones Leukocytes Nitrite Labor Signs Protein Cervic Dilation Cervic Effacement Cervic Station neg none 37 trace 1cm 60% -3 Type Weight in lbs Pre/Post Dialysis Refused Weight 169.296603930297 BP Diastolic BP Location Tested BP Systolic [...] Weight in lbs Pre/Post Dialysis Refused Weight 142.006154601853 BP Diastolic BP Location Tested BP Systolic BP Type 65 117 Fetus Heart Rate Present Fetus Movement Comments Flowsheet Date 12/18/2019 Leon Score Blood Edema Fundus Height Fundus Units Glucose Ketones Leukocytes Nitrite Labor Signs Protein Cervic Dilation Cervic Effacement Cervic Station Type Weight in lbs Pre/Post Dialysis Refused Weight 142.259162308957 BP Diastolic BP Location Tested BP Systolic BP Type 62 98 Fetus Heart Rate Present Fetus Movement Comments Flowsheet Date 01/18/2020 Leon Score Blood Edema Fundus Height Fundus Units Glucose Ketones Leukocytes Nitrite Labor Signs Protein Cervic Dilation Cervic Effacement Cervic Station Type Weight in lbs Pre/Post Dialysis Refused Weight 142.508864935368 BP Diastolic BP Location Tested BP Systolic [...] Complications Tubal Sterilization Discharge Date Comments 0 Ofe [facility]-Ep idural 39.4 false [id number] GBS+ Discharge Information Feeding Method Contraceptive Method Maternal HG B and HCT Levels Ob Episode Information Episode Created Date Number of Fetuses Patient Bloodtype Patient rh Status Prepregnancy Weight lbs Domestic Partner Domestic Partner Phone Father Name Leather Belt Shaper Status 10/02/19 20 1 DELETED Segundo Calculation [...]
--- NOTE | 2025-01-19 08:50 | ED_ITS ---
HPI - URI/Sore Throat General Chief Complaint: Upper Respiratory Infection Stated Complaint: Bodyache/Headache Time Seen by Provider: 01/19/25 08:50 Source: patient Mode of arrival: ambulatory Limitations: no limitations History of Present Illness HPI Narrative: 29-year-old female presents with complaint of fatigue, fever, body aches, sore throat for 4 days. Pain and swelling progressively worse to throat. Nausea and vomiting 1st day that has resolved. All systems reviewed and negative except as noted above. Related Data Home Medications ?Medication ?Instructions ?Recorded ?Confirmed ?Last Taken ?Type albuterol sulfate 90 mcg/actuation 1 inh inhalation QI D PRN Wheezing 08/20/19 10/25/22 Unknown History aerosol inhaler (Ventolin HFA) montelukast 10 mg tablet 10 mg PO DAILY 10/25/22 08/0 12/1811/02/22 History omeprazole 40 mg capsule,delayed 40 mg PO DAILY 11/03/22 11/02/22 History release fluoxetine 40 mg capsule mg 09/04/24 Unknown History hydroxyzine HCl 10 mg tablet mg 09/04/24 Unknown Hist ory fluoxetine 20 mg capsule mg 01/19/25 Unknown History Allergies Allergy/AdvReac Type Severity Reaction Status Date / Time amoxicillin (From Augmentin) Allergy Intermediate Hives Verified 01/19/25 08:57 clavulanic acid (From Allergy Intermediate Hives Verified 01/19/25 08:57 Augmentin) Penicillins Allergy Mild Fever Verified 01/19/25 08:57 PMFSH Past Medical History Medical History (Updated 01/19/25 @ 08:58 by Petra Baumann APRN) Depression Asthma Family History Family History (Updated 08/20/19 @ 15:39 by Noam Mcdonald RN) Grandparent Leukemia Ovarian cancer Father Celiac disease Other Breast cancer Social History Social History Smoking status: Never smoker Alcohol intake: current Drinks per week: 14 Substance use: current Substance use type: marijuana Other substance usage details: smoking,daily Living arrangements: with family Gender identity (if verbalized by the patient): Female Spiritual care concerns: No Comments At time of signature, agree with nursing past medical, surgical, social and family history. There is no relevant family history pertinent to the presenting complaint. Exam Narrative: GENERAL: This is a well-nourished, well-developed patient, Ill-appearing but no acute distress HEAD: normocephalic, atraumatic. EYES: PERRL. Sclera clear/white. Vision is grossly intact. EARS: External ears normal, auditory canals clear and without drainage, TMs normal without perforation. Hearing grossly intact. NOSE: External nose normal with no obvious nasal discharge, nares without redness, no rhinorrhea. THROAT: Mucous membranes moist, erythematous to posterior pharynx with swelling. Uvula swollen. NECK: Neck supple, non-tender without lymphadenopathy, masses or thyromegaly. CARDIOVASCULAR: Regular rate and rhythm without murmurs, gallops, or rubs. RESPIRATORY: Clear to auscultation. Breath sounds equal bilaterally. No wheezes, rales, or rhonchi. SKIN: warm, Dry, intact with no suspicious lesions or rash, good texture and turgor. NEURO: awake, alert, and oriented to person, place and time. There were no obvious focal neurologic abnormalities. EXTREMITIES: No joint tenderness, effusion, or edema noted. Course Course Level of Care: Express Care Visit Vital Signs Vital signs: reviewed MDM - URI/Sore Throat MDM Narrative Medical decision making narrative: positive rapid strep. Will treat with cefdinir due to penicillin allergy. Patient agrees with plan of care. Patient is alert, nontoxic. Differential Diagnosis Differential diagnosis: Likely upper respiratory infection, sinusitis, viral infection, influenza and pharyngitis Discharge Plan Discharge Clinical Impression: Strep throat Patient Disposition: Home Condition: Stable Instructions: Antibiotic Form, Pharyngitis (ED) Additional Instructions: Your strep test was positive today. Take antibiotic as prescribed until gone. Change toothbrush after taking antibiotic for 24 hours. Alternate between Tylenol ibuprofen every 4 hours to treat pain. Drink at least 64 oz of water a day. Follow-up with your doctor if symptoms are not improving. Patient Language: East Timorese Prescriptions: New cefdinir 300 mg capsule 300 mg PO Q12H 10 Days Qty: 20 0RF methylprednisolone [Medrol (Santana)] 4 mg tablets,dose pack See Rx Instructions PO .COMPLEX Qty: 21 0RF Rx Instructions: orally per package directions No Action fluoxetine 20 mg capsule fluoxetine 40 mg capsule hydroxyzine HCl 10 mg tablet albuterol sulfate [Ventolin HFA] 90 mcg/actuation Hfa Aerosol Inhaler 1 inh INHALATION QID PRN (Reason: Wheezing) omeprazole 40 mg capsule,delayed release(/EC) 40 mg PO DAILY montelukast 10 mg tablet 10 mg PO DAILY Follow-up/Referrals: Theresa,Mitzi Yip APRN [Primary Care Provider, Unknown] Time of Disposition: 08:58
[2025-01-19 09:00] LABS: EDSTREPNEGPOS1 Positive (Negative)
== END 2025-01-19 09:02 | disposition home or self-care (01) ==
PROVIDERS: Emergency Provider Nurse Practitioner Family; PCP Nurse Practitioner
DX: J02.0 Streptococcal pharyngitis (principal); F12.90 Cannabis use, unspecified, uncomplicated; J45.909 Unspecified asthma, uncomplicated; F32.A Depression, unspecified
CPT/HCPCS: 87880; 99213; G0463

== ENCOUNTER 2025-02-17 13:08 | Emergency (ER) | payer OTHER, SELFPAY ==
--- OUTSIDE RECORDS SUMMARY | 2025-02-17 13:10 | XMS_ITS | Encounter Summary ---
Author Organization [facility] Address [address] [place] [address] Phone Care Team Providers Care Clearing Tub Worker Name Role Phone Mitzi Cardenas APRN, ARNOL Primary Care Prov ider Reason for Visit * Reason Comments Medication Refill Encounter Details Date Type Department Care Team (Late st Contact Info) Description 07/30/2023 Refill [facility] - Family Medicine [facility] [address] [place] [address] Mitzi Cardenas APRN, BARREL FILLER HEAD [address] [address] Medication Refill Social History Tobacco Use Types Packs/Day Years Used Date Smoking Tobacco: Former Cigarettes 0.3 3 0 03/28/2012 - 03/28/2015 Smokeless Tobacco: Never Comments:hookah Alcohol Use Standard Drinks/Week Comments Yes 0 (1 standard drink = 0.6 oz pur e alcohol) not typically [facility] Utilities Answer Date Recorded In the past 12 months has [employer] electric, gas, oil, or water company threatened [...] often do you attend chur ch or sikh services? Never 04/15/2023 Do you belong to any clubs o r organizations such as alevism groups, unions, fraternal or athletic groups, or [...] Total Score - Questions 1-9 0 06/26 [facility] - [...] place to sleep or slept in a correction (including now)? No 04/15/2023 Education Answer Date Recorded What is the highest level of school you have completed or the highest degree you have received? Bachelor's degree (e.g., BA, AB, BS) 02/03/2020 Sexually Active Control Partners Comments Yes Male Comments No Sex and Gender Information Value Date Recorded Sex Assigned at Female 03/06/2023 10:14 PM SEO PROFESSIONAL Legal Sex Female 3:51 AM SEO PROFESSIONAL Gender Identity Other 04/15/2023 8:49 PM SEO PROFESSIONAL Sexual Orientation Something else 03/06/2023 10 :14 PM SEO PROFESSIONAL Occupation Industry Job Start Date Job End [...] 05/25/23 Office Visit Marco A Jenkins MD [facility] 04/15/23 Office Visit Mitzi Cardenas APRN, BARREL FILLER HEAD [facility] Showing recent visits within past 365 days and meeting all other requirements Future Appointments Date Type Provider Dept 10/14/23 Appointment Mitzi Cardenas APRN, ARNOL [facility] Showing future appointments within next 90 days and meeting all other requirements documented in this encounter Plan of Treatment Not on file documented as of this encounter Visit Diagnoses Diagnosis Mild intermittent asthma without complication Unspecified asthma documented in this encounter Additional Health Concerns Infection Onset Date Last Indicated Resolved Time Respiratory Rule-Out 05/16/2024 05/16/2024 025 2:53 PM SEO PROFESSIONAL Influenza 05/16/2024 05/16/2024 05/23/2024 12:1 7 AM SEO PROFESSIONAL COVID - 19 09/04/2024 09/04/2024 09/04/2024 12:0 7 PM CDT Assessment Noted Time PHQ-9 Depression Total Score: 0 07/11/19 21 1:24 PM CDT documented as of this encounter Care Teams Clearing Tub Worker Relationship Specialty Start Date End Date Mitzi Cardenas APRN, BARREL F[employer] HEAD [address] [address] PCP - General Advanced Practice Nurse 01/23/19 documented as of this encounter
--- OUTSIDE RECORDS SUMMARY | 2025-02-17 13:10 | XMS_ITS | Encounter Summary ---
Author Organization [facility] Address [address] [place] [address] Phone Care Team Providers Care Stonecutter Name Role Phone Mitzi Cardenas APRN, DIRECTOR RETIREMENT Primary Care Prov ider Reason for Visit * Reason Comments Medication Refill Encounter Details Date Type Department Care Team (Late st Contact Info) Description 06/28/2021 Refill [facility] - Family Medicine - [place] [address] [place] [address] Mitzi Cardenas APRN, DIRECTOR RETIREMENT [address] [address] Medication Refill Social History Tobacco [...] Sex Assigned at Female 03/06/2023 10:14 PM DIRECTOR OF AUDIOLOGY Legal Sex Female 3:51 AM DIRECTOR OF AUDIOLOGY Gender Identity Other 04/15/2023 8:49 PM DIRECTOR OF AUDIOLOGY Sexual Orientation Something else 03/06/2023 10 :14 PM DIRECTOR OF AUDIOLOGY Occupation Industry Job Start Date Job End [...] Respiratory Rule-Out 05/16/2024 05/16/2024 025 2:53 PM DIRECTOR OF AUDIOLOGY Influenza 05/16/2024 05/16/2024 05/23/2024 12:1 7 AM DIRECTOR OF AUDIOLOGY COVID - 19 09/04/2024 09/04/2024 09/04/2024 12:0 7 PM CDT Assessment Noted Time PHQ-9 Depression Total Score: 0 07/11/19 21 1:24 PM CDT documented as of this encounter Care Teams Stonecutter Relationship Specialty Start Date End Date Mitzi Cardenas, BUNDLE PERSON, DIRECTOR RETIREMENT #[address] [address] PCP - General Advanced Practice Nurse 01/23/19 documented as of this encounter
--- OUTSIDE RECORDS SUMMARY | 2025-02-17 13:10 | XMS_ITS | Continuity of Care Document ---
Author Organization [facility] Address [address] [place] [address] Care Team Providers Care Rib Puller Name Role Phone STEPHEN COLLINS Primary Care Provider Assessment No assessment recorded. Plan of Treatment Reminders Order Date Submit Date Provider Last Modified By Organization Details Last Modified Time Details Appointments SURG Diagnosti c Lap 2025 07:30A Stephon SHELTON MD Not available Not available Not available SURG POST OP 2025 10:00A Stephon SHELTON MD Not available Not available Not available Lab None recorded. Referral None recorded. Procedures None recorded. Surgeries None recorded. Imaging None recorded. Medication Orders None recorded. Patient TargetsNo targets recorded. Patient InstructionsNo instructions recorded. Reason for Referral None Reported. Results Created Date Observation Date Name Description Value Unit Range Abnormal Flag Note LastModifiedBy Organization Detail LastModifiedTime 02/06/2002/05/2025 , doroteo bello No observ ation record ed. [facility] [address], [place], [address], 02/05/2025 14:03:05 02/06/20 25 02/05/2025 US, doroteo bello No observ ation record ed. [email or web address] [address], [place], [address], 02/05/2025 21:19:27 Result Notes None recorded. Problems Name Problem SNOMED Code Status Onset Date Resolution Date Notes Provider Name and Address Organization Details Recorded Time SNOMED CT Concept Completed 201811/06/2020 Encntr for mail sorter exam (general ) (routine ) w/o abn findings ;Recorde d Elsewher e: No Locat ion: [facility] S ource: EHR Roller Operator karin: N Gabbyti ce ID: 0001 Gerard lable Time: 03:00:00 PM Radha Burroughstz meliton, [facility] 11:06:52 Pregnanc y detectio n examinat ion Completed 201811/06/2020 Encounte r for pregnanc y test, result positive ;Recorde d Elsewher e: No Locat ion: [facility] S ource: EHR Roller Operator karin: N Gabbyti ce ID: 0001 Gerard lable Time: 03:00:00 PM Radha Swain meliton, [facility] 11:06:46 Gestatio n period, 8 weeks [id number] Completed 201811/06/2020 8 weeks gestatio n of pregnanc y;Record ed Elsewher e: No Locat ion: [facility] S ource: EHR Roller Operator karin: N Practi ce ID: 0001 Gerard lable Time: 10:00:00 AM Radha Swain meliton, [facility] 11:06:40 Antenata l screenin g Completed 201811/06/2020 Encounte r for antenata l screenin g for nuchal transluc ency;Rec orded Elsewher e: No Locat ion: [facility] S ource: EHR Roller Operator karin: N Practi ce ID: 0001 Gerard lable Time: 02:15:00 PM Radha Swain meliton, [facility] 11:06:33 Normal pregnanc y in multigra hema [id number] Completed 201911/06/2020 Encounte r for suprvsn of normal pregnanc y, second trimeste r;Record ed Elsewher e: No Locat ion: [facility] S ource: EHR Roller Operator karin: N Gabbyti ce ID: 0001 Gerard lable Time: 02:45:00 PM Radha coelho, [facility] 1 11:06:44 Pregnanc y, childbir th and puerperi um finding Completed 201911/06/2020 Encounte r for supervis ion of normal 1st pregnanc y;Record ed Elsewher e: No Locat ion: [facility] S ource: [facility] karin: N Gabbyti ce ID: 0001 Gerard lable Time: 04:45:00 PM Radha coelho, [facility] 1 11:06:48 Antenata l screenin g for malforma tion Completed 201911/06/2020 Encounte r for antenata l screenin g for malforma tions;Re corded Elsewher e: No Locat ion: [facility] ortega [facility] S ource: [facility] karin: N Gabbyti ce ID: 0001 Gerard lable Time: 03:45:00 PM Radha Swain [facility], [facility] 1 11:06:35 malforma tion of central nervous system [id number] 07 Completed 201911/06/2020 Maternal care for (suspect ed) cnsl malform in fetus, unsp;Rec orded Elsewher e: No [facility] karin: N Gabbyti ce ID: 0001 Gerard lable Time: 02:45:00 PM Radha Swain [facility], [facility] 1 11:06:42 Gestatio n period, 28 weeks [id number] Completed 201911/06/2020 28 weeks gestatio n of pregnanc y;Record ed Elsewher e: No Locat ion: [facility] S ource: [facility] karin: N Gabbyti ce ID: 0001 Gerard lable Time: 02:45:00 PM Radha Swain [facility], [facility] 1 11:06:38 Pregnanc y, childbir th and puerperi um finding Completed 201911/06/2020 Encntr for suprvsn of normal first preg, third trimeste r;Record ed Elsewher e: No Locat ion: [facility] ortega [facility] S ource: EHR Roller Operator karin: N Practi ce ID: 0001 Gerard lable Time: 03:15:00 PM Radha coelho, [facility] 1 11:06:50 Pregnanc y [id number] Completed 201902/08/2020 Cheryl coelho [facility] 0 10:21:33 Problem Notes None recorded. Procedures Surgical History Date Name Laterality Status Provider Name and Address Organization Details Recorded Time 11/20/19 23 Control Implant Removal completed Sheldon Shelton MD [address], [place], [address], [facility] 11/19/2022 16:05:54 11/04/19 23 TOTAL HYSTERECTOMY, LAPAROSCOPIC, WITH BILATERAL SALPINGECTOMY (SURG) completed Salma Cardoza [facility] 11/04/2022 11:09:26 11/05/19 22 Control Implant Insertion completed Sheldon Shelton MD [address], [place], [address], [facility] 11/04/2021 16:49:20 10/30/19 21 Date of Last Pap Smear completed Radha Swain [facility] 11/06/2020 11:04:49 06/12/19 17 laparoscopy completed Radha Swain [facility] 07/31/2019 12:33:49 12/07/19 15 Laparoscopy completed Radha Swain [facility] 07/31/2019 12:23:09 03/28/19 02 Tonsillectomy completed Radha Swain [facility] 07/31/2019 12:34:01 Imaging Results None recorded. Procedure Notes None recorded. Medical Equipment None Reported. Allergies Allergen ID Allergen Name Allergen Category Reaction Reaction Severity Criticality Documentation Date Start Date Code Code System Note Provider Name and Address Organization Details Recorded Time 234 amoxicill in medicatio n Not available Not available Not available 07/13/2019 723 RxNorm Vianey Barclay [facility] 0 15:56:56 235 Product containin g penicilli n (product) medicatio n Not available Not available Not available 07/13/2019 37885 8001 SNOMED Vianey Barclay [facility] 0 15:57:13 236 potassium medicatio n Not available Not available Not available 07/13/2019 8588 RxNorm Radha Swain [facility], [facility] 0 14:56:52 Medications Name Sig Start Date Stop Date Status Note LastModified by Organization Details LastModified Time fluoxetin e 40 mg capsule TAKE 1 CAPSULE BY MOUTH EVERY DAY 01/29 completed Not Available Not Available Not Available clindamyc in HCl 300 mg capsule Take 1 capsule every 12 hours by oral route for 7 days. 01/17 completed Not Available Not Available Not Available azithromy harini 250 mg tablet 07/30 completed Not Available Not Available Not Available fluconazo le 150 mg tablet TAKE 1 TABLET EVERY 72 HOURS BY ORAL ROUTE FOR 1 DAY. 01/29 completed Not Available Not Available Not Available sumatript an 25 mg tablet 07/30 [...] Prescrib ed Elsewher e: Yes Loca tion: [facility] M odify By: lex phelps DateTime : [...] completed Not Available Not Available Not Available nortripty line 25 mg capsule TAKE 1 CAPSULE BY MOUTH EVERYDAY AT BEDTIME active Not Available Not Available No t Available oxycodone -acetamin ophen 5 mg-325 mg tablet 05/05 completed Not Available Not Available Not Available terbinafi ne HCl 250 mg tablet 10/25 completed Not Available Not Available Not Available propranol ol 10 mg tablet TAKE 1 TO 2 TABLETS BY MOUTH TWICE A DAY NEEDED active Not Available Not Available No t Available benzonata te 100 mg capsule TAKE 1 CAPSULE BY MOUTH 3 TIMES DAILY NEEDED FOR COUGH FOR UP TO 7 DAYS. INDICATI ONS: COUGH 01/29 completed Not Available Not Available Not Available cephalexi n 500 mg capsule 11/06 completed Not Available Not Available Not Available oseltamiv ir 75 mg capsule TAKE 1 CAPSULE BY MOUTH TWICE A DAY FOR 5 DAYS 01/29 completed Not Available Not Available Not Available fluoxetin e 10 mg capsule TAKE 1 CAPSULE BY MOUTH EVERY DAY 02/11 completed Not Available Not Available Not Available butacebita l-aspirin -caffeine 50 mg-325 mg-40 mg capsule [...] completed Not Available Not Available Not Available methylpre dnisolone 4 mg tablets in a dose pack TAKE 6 TABLETS ON DAY 1 DIRECTED ON PACKAGE AND DECREASE BY 1 TAB EACH DAY FOR A TOTAL OF 6 DAYS 01/29 completed Not Available Not Available Not Available albuterol sulfate HFA 90 mcg/actua tion aerosol inhaler TAKE 2 PUFFS BY INHALATI ON EVERY 4 HOURS NEEDED FOR WHEEZING OR COUGH. active Not Available Not Available No t Available hydroxyzi ne HCl 10 mg tablet TAKE ONE TO TWO TABLETS BY MOUTH EVERY DAY NEEDED FOR ANXIETY active Not Available Not Available No t Available ondansetr on 4 mg disintegr ating tablet TAKE 1 TABLET BY MOUTH EVERY 8 HOURS NEEDED FOR NAUSEA FIRST LINE 01/29 completed Not Available Not Available Not Available cefdinir 300 mg capsule TAKE 1 CAPSULE BY MOUTH EVERY 12 HOURS FOR 10 DAYS 02/11 completed Not Available Not Available Not Available fluoxetin e 20 mg capsule TAKE 1 CAPSULE BY MOUTH EVERY DAY active Not Available Not Available No t Available cyclobenz aprine 5 mg tablet 1 TABLET TWICE A DAY 01/29 completed Not Available Not Available Not Available [...] 6 capsules per 24hrs 11/06 completed Prescrib ed [facility]: No Locat ion: [facility] odify By: [email or web address] Encount er DateTime : 03/13/20 02:45:00 PM [...] and Address Organization Details Last Updated DateTime 01/29/2025 168.28 cm 21.9 kg/m2 31277.15 g 108/74 mm[Hg] Charley Orellana [facility] 01/29/2025 11:07:19 Social History Question Answer Notes LastModified by Organizat ion Details LastModified Time Tobacco Smoking Status Former Smoker Sol Estrada meliton, [facility] 11/19/2022 15:36:08 Do You Have An Advance Directive? No [email or web address] Information not available 03/03/2021 If You Are , What Was Your Level Of Alcohol Consumption Prior To ? None Information not available 11/19/2022 How Many Years Have You Consumed Alcohol? 7 [email or web address] Information not available 08/10/2023 Are You Blind Or Do You Have Difficulty Seeing? No [email or web address] Information not available 03/03/2021 What Is Your Level Of Caffeine Consumption? Heavy [email or web address] Information not available 03/03/2021 How Much Tobacco Do You Chew? None [email or web address] Information not available 03/03/2021 In The 14 Days Before Symptom Onset, Have You Had Close Contact With A Laboratory-confir med COVID-19 While That Case Was Ill? No [email or web address] Information not available 03/03/2021 In The 14 Days Before Symptom Onset, Have You Had Close Contact With A Person Who Is Under Investigation For COVID-19 While That Person Was Ill? No Information not available 03/03/2021 Have You Been To An Area Known To Be High Risk For COVID-19? No Information not available 03/03/2021 Are You Deaf Or Do You Have Serious Difficulty Hearing? No [email or web address] Information not available 03/03/2021 What Type Of Diet Are You Following? VEGETARIAN [email or web address] Information not available 03/03/2021 What Is The Highest Grade Or Level Of School You Have Completed Or The Highest Degree You Have Received? MP80220-7 [email or web address] Information not available 03/03/2021 Are There Any Guns Present In Your Home? Yes [email or web address] Information not available 03/03/2021 What Was The Date Of Your Most Recent Tobacco Screening? 03/03/2021 Information not available 11/19/2022 Do You Use Protection During Sex? No [email or web address] Information not available 03/03/2021 Do You Use Your Seat Belt Or Car Seat Routinely? Yes [email or web address] Information not available 03/03/2021 Are You Sexually Active? Yes [email or web address] Information not available 08/10/2023 Do You Have Smoke And Carbon Monoxide Detectors In Your Home? Yes [email or web address] Information not available 03/03/2021 How Much Tobacco Do You Smoke? No [email or web address] Information not available 08/31/2019 Smoking Pre- No Information not available 11/19/2022 Do You Use Sunscreen Routinely? Yes [email or web address] Information not available 03/03/2021 Have You Used IV Drugs? No [email or web address] Information not available 03/03/2021 Do You Have Difficulty Walking Or Climbing Stairs? No Information not available 11/19/2022 Sex: Female Functional Status Question Answer Note LastModified by Organizat ion Details LastModified Time Do you use any illicit or recreational drugs? Yes [email or web address] Information not available 03/03/2021 What is your level of alcohol consumption? Occasional [email or web address] Information not available 08/31/2019 Do you or have you ever used smokeless tobacco? Never used smokeless tobacco Information not available 11/19/2022 Are you currently employed? Yes [email or web address] Information not available 08/10/2023 Are you able to walk independently without assistance or assistive devices? YESWOREST [email or web address] Information not available 03/03/2021 Are you able to care for yourself independently? 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 No Information not available 11/19/2022 Do you or have you ever used e-cigarettes or vape? Never used electronic cigarettes Information not available 11/19/2022 What is your exercise level? Occasional Information not available 08/10/2023 Mental Status Question Answer Note LastModified by Organization D etails LastModified Time Do you feel stressed (tense, restless, nervous, or anxious, or unable to sleep at night)? [id number] [email or web address] Information not available 03/03/2021 Family History Relationship Description Onset Age of this Age Resolved Age Notes LastModified by Organization Details LastModified Time Maternal Aunt Family history of breast cancer [email or web address] Not available 01/26 11:43:07 Maternal Grandmother Family history of breast cancer [email or web address] Not available 01/26 11:43:07 Maternal Grandmother Malignant neoplasm of endometrium of corpus uteri suspected [email or web address] Not available 01/26 11:43:07 Maternal Grandmother Leukemia [email or web address] Not available 04/13/2024 11:43:07 Sister Family history of breast cancer [email or web address] Not available 01/26 11:43:07 Paternal Grandmother Malignant neoplasm of ovary [email or web address] Not available 2022 17:14:15 Medical History Condition [...] Anxiety Disorder Y Autoimmune disease N Arthritis Y Infertility N Polyps N Acid Reflux (GERD) [...] ICD10 Code Diagnosis IMO Codes Diagnosis Note [id number] Sheldon Shelton MD [place] [address] [address] 01/29/2025 10:31:56 01/29/2025 20:56:09 Health Concerns Section Related Observation LastModified by Organization Detai ls LastModified Time None Recorded Concern Status LastModified by Organization Details LastModified Time None Recorded Payers Encounter Date Sequence Insurance Name Policy Number Policy [place] Covered Member ID [place] Member ID Guarantor Name 01/29/2025 1 [facility] [employer] - [employer] Lerner [id number] Rose Lerner OBGyn Episode No OBEpisode recorded.
--- OUTSIDE RECORDS SUMMARY | 2025-02-17 13:10 | XMS_ITS | Continuity of Care Document ---
Author Organization [facility] [place] Address [address] [place] [address] [place] [address] Care Team Providers Care Guardian Ad Litem Name Role Phone STEPHEN COLLINS Primary Care Provider Assessment No assessment recorded. Plan of Treatment Reminders Order Date Submit Date Provider Last Modified By Organization Details Last Modified Time Details Appointments SURG Diagnosti c Lap 2025 07:30A Stephon LLOYD MD Not available Not available Not available SURG POST OP 2025 10:00A Stephon LLOYD MD Not available Not available Not available Lab None recorded. Referral None recorded. Procedures None recorded. Surgeries None recorded. Imaging US, transvagi nal 2024 025 [email or web address] [place], [address], [address], [place], [address], 02/05/2025 21:05:40 Medication Orders None recorded. Patient TargetsNo targets recorded. Patient InstructionsNo instructions recorded. Reason for Referral None Reported. Results Created Date Observation Date Name Description Value Unit Range Abnormal Flag Note LastModifiedBy Organization Detail LastModifiedTime 02/06/2002/05/2025 [email or web address] MOFFETT No observ ation [facility] ed[facility] [address], [place], [address], 02/05/2025 14:03:05 02/06/20 25 02/05/2025 USdoroteo al No observ ation record ed. [email or web address] [address]ata [address], [place], [address], 02/05/2025 21:19:27 Result Notes None recorded. 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 11:06:52 Pregnanc y detectio n examinat ion Completed 201811/06/2020 Encounte r for pregnanc y test, result positive ;Recorde d Elsewher e: No Locat ion: [facility] S ource: EHR Diamond Polisher karin: N Gilberto ce ID: 0001 Gerard lable Time: 03:00:00 PM Radha Swain [facility] 11:06:46 Gestatio n period, 8 weeks [id number] Completed 201811/06/2020 8 weeks gestatio n of pregnanc y;Record ed Elsewher e: No Locat ion: [facility] S ource: EHR Diamond Polisher karin: N Gilberto ce ID: 0001 Gerard lable Time: 10:00:00 AM Radha coelho [facility] 11:06:40 Antenata l screenin g Completed 201811/06/2020 Encounte r for antenata l screenin g for nuchal transluc ency;Rec orded Elsewher e: No Locat ion: [facility] S ource: EHR Diamond Polisher karin: N Gabbyti ce ID: 0001 Gerard lable Time: 02:15:00 PM Radha coelho [facility] 11:06:33 Normal pregnanc y in multigra hema [id number] Completed 201911/06/2020 Encounte r for suprvsn of normal pregnanc y, second trimeste r;Record ed Elsewher e: No [facility] S ource: EHR Diamond Polisher karin: N Gabbyti ce ID: 0001 Gerard lable Time: 02:45:00 PM Radha coelho, [facility] 1 11:06:44 Pregnanc y, childbir th and puerperi um finding Completed 201911/06/2020 Encounte r for supervis ion of normal 1st pregnanc y;Record ed Elsewher e: No [facility] Diamond Polisher karin: N Gabbyti ce ID: 0001 Gerard lable Time: 04:45:00 PM Radha coelho, [facility] 1 11:06:48 Antenata l screenin g for malforma tion Completed 201911/06/2020 Encounte r for antenata l screenin g for malforma tions;Re corded Elsewher e: No [facility]at ion: [facility] S ource: EHR Diamond Polisher karin: N Gabbyti ce ID: 0001 Gerard lable Time: 03:45:00 PM Radha coelho, [facility] 1 11:06:35 malforma tion of central nervous system [id number] 07 Completed 201911/06/2020 Maternal care for (suspect ed) cnsl malform in fetus, unsp;Rec orded Elsewher e: No Locat ion: [facility] S ource: EHR Diamond Polisher karin: N Gabbyti ce ID: 0001 Gerard lable Time: 02:45:00 PM Radha Swain [facility], [facility] 11:06:42 Gestatio n period, 28 weeks [id number] Completed 201911/06/2020 28 weeks gestatio n of pregnanc y;Record ed Elsewher e: No Locat ion: [facility] S ource: EHR Diamond Polisher karin: N Practi ce ID: 0001 Gerard lable Time: 02:45:00 PM Radha coelho, [facility] 1 11:06:38 Pregnanc y, childbir th and puerperi um finding Completed 201911/06/2020 Encntr for suprvsn of normal first preg, third trimeste r;Record ed Elsewher e: No Locat ion: [facility] S ource: EHR Diamond Polisher karin: N Practi ce ID: 0001 Gerard lable Time: 03:15:00 PM Radha coelho, [facility] 1 11:06:50 Pregnanc y [id number] Completed 201902/08/2020 Cheryl coelho [facility] 0 10:21:33 Problem Notes None recorded. Procedures Surgical History Date Name Laterality Status Provider Name and Address Organization Details Recorded Time 11/20/19 23 Control Implant Removal completed Sheldon Lloyd MD [address], [place], [address], , P[facility] 11/19/2022 16:05:54 11/04/19 23 TOTAL HYSTERECTOMY, LAPAROSCOPIC, WITH BILATERAL SALPINGECTOMY (SURG) completed Salma Cardoza [facility] 11/04/2022 11:09:26 11/05/19 22 Control Implant Insertion completed Sheldon Lloyd MD [address], [place], [address], , P[facility] 11/04/2021 16:49:20 10/30/19 21 Date of Last Pap Smear completed Radha Swain [facility] 11/06/2020 11:04:49 06/12/19 17 laparoscopy completed Radha Swain [facility] 07/31/2019 12:33:49 12/07/19 15 Laparoscopy completed Radha Swain [facility] 07/31/2019 12:23:09 03/28/19 02 Tonsillectomy completed Radha Swain [facility] 07/31/2019 12:34:01 Imaging Results None recorded. Procedure Notes None recorded. Medical Equipment None Reported. Allergies Allergen ID Allergen Name Allergen Category Reaction Reaction Severity Criticality Documentation Date Start Date Code Code System Note Provider Name and Address Organization Details Recorded Time 234 amoxicill in medicatio n Not available Not available Not available 07/13/2019 723 RxNorm Vianey [facility] 0 15:56:56 235 Product containin g penicilli n (product) medicatio n Not available Not available Not available 07/13/2019 16677 8001 SNOMED Vianey [facility] 0 15:57:13 236 potassium medicatio n Not available Not available Not available 07/13/2019 8588 RxNorm Radha Swain [facility] 0 14:56:52 Medications Name Sig [...] Prescrib ed Elsewher e: Yes Loca tion: [facility] M odify By: lex phelps DateTime : [...] Not Available Not Available Not Available butalbita l-aspirin -caffeine 50 mg-325 mg-40 [...] capsules per 24hrs 11/06 completed [facility] Loc[facility]: [facility] M odify By: [email or web address] Encount er DateTime : 03/13/20 19 02:45:00 [...] Not Available Not Available Not Available Vitals None Recorded Social History Question Answer Notes LastModified by Organizat ion Details LastModified Time Tobacco Smoking Status Former Smoker Sol Estrada [facility], [facility] 11/19/2022 15:36:08 Do You Have An Advance Directive? No [email or web address] Information not available 03/03/2021 If You Are , What Was Your Level Of Alcohol Consumption Prior To ? None Information not available 11/19/2022 How Many Years Have You Consumed Alcohol? 7 [email or web address] Information not available 08/10/2023 Are You Blind Or Do You Have Difficulty Seeing? No [email or web address] Information not available 03/03/2021 What Is Your Level Of Caffeine Consumption? Heavy [email or web address] Information not available 03/03/2021 How Much Tobacco Do You Chew? None Information not available 03/03/2021 In The 14 Days Before Symptom Onset, Have You Had Close Contact With A Laboratory-confir med COVID-19 While That Case Was Ill? No [email or web address] Information not available 03/03/2021 In The 14 Days Before Symptom Onset, Have You Had Close Contact With A Person Who Is Under Investigation For COVID-19 While That Person Was Ill? No [email or web address] Information not available 03/03/2021 Have You Been To An Area Known To Be High Risk For COVID-19? No [email or web address] Information not available 03/03/2021 Are You Deaf Or Do You Have Serious Difficulty Hearing? No Information not available 03/03/2021 What Type Of Diet Are You Following? [email or web address] Information not available 03/03/2021 What Is The Highest Grade Or Level Of School You Have Completed Or The Highest Degree You Have Received? GA71840-3 [email or web address] Information not available 03/03/2021 Are There Any Guns Present In Your Home? Yes [email or web address] Information not available 03/03/2021 What Was The Date Of Your Most Recent Tobacco Screening? 03/03/2021 Information not available 11/19/2022 Do You Use Protection During Sex? No [email or web address] Information not available 03/03/2021 Do You Use Your Seat Belt Or Car Seat Routinely? Yes [email or web address] Information not available 03/03/2021 Are You Sexually Active? Yes [email or web address] Information not available 08/10/2023 Do You Have Smoke And Carbon Monoxide Detectors In Your Home? Yes [email or web address] Information not available 03/03/2021 How Much Tobacco Do You Smoke? No [email or web address] Information not available 08/31/2019 Smoking Pre- No Information not available 11/19/2022 Do You Use Sunscreen Routinely? Yes [email or web address] Information not available 03/03/2021 Have You Used IV Drugs? No [email or web address] Information not available 03/03/2021 Do You Have Difficulty Walking Or Climbing Stairs? No Information not available 11/19/2022 Sex: Female Functional Status Question Answer Note LastModified by Organizat ion Details LastModified Time Do you use any illicit or recreational drugs? Yes [email or web address] Information not available 03/03/2021 What is your level of alcohol consumption? Occasional [email or web address] Information not available 08/31/2019 Do you or have you ever used smokeless tobacco? Never used smokeless tobacco Information not available 11/19/2022 Are you currently employed? Yes Information not available 08/10/2023 Are you able to walk independently without assistance or assistive devices? YESWOREST [email or web address] Information not available 03/03/2021 Are you able [...] anxious, or unable to sleep at night)? [id number] Information not available 03/03/2021 Family History Relationship [...] 11:43:07 Maternal Grandmother Leukemia [email or web address] Not available 1 04/13/2024 11:43:07 Sister Family history of breast cancer [email or web address] Not available 01/26 11:43:07 Paternal Grandmother Malignant neoplasm of ovary [email or web address] Not available 2022 17:14:15 Medical History Condition [...] ICD10 Code Diagnosis IMO Codes Diagnosis Note [id number] Sheldon Lloyd MD [place] [address],[facility] [place] [address] 01/29/2025 10:31:56 01/29/2025 20:56:09 [id number] Sheldon Lloyd MD [place] [address] [address] 02/05/2025 11:49:32 02/05/2025 12:18:10 Pain in pelvis [id number] R10.20 [id number] Health Concerns Section Related Observation LastModified by Organization Detai ls LastModified Time None Recorded Concern Status LastModified by Organization Details LastModified Time None Recorded Payers Encounter Date Sequence Insurance Name Policy Number Policy [employer] Covered Member ID Orosco Member ID Guarantor Name 02/05/2025 1 [facility] [employer] - [employer] Lerner [id number] Rose Lerner OBGyn Episode No OBEpisode recorded.
--- OUTSIDE RECORDS SUMMARY | 2025-02-17 13:10 | XMS_ITS | Data Portability ---
Author Organization [facility] Address [address] [place] [address] Care Team Providers Care Layboy Tender Name Role Phone DENNISSTEPHEN Primary Care Provider Assessment No assessment recorded. [...] Referral None recorded. Procedures None recorded. Surgeries oophorect luly (SURG) 2024 026 [facility], [facility] [address], [place], [address], 02/14/2025 15:02:37 Imaging US, transvagi nal [email or web address], [facility] [address], [place], [address], 02/05/2025 21:05:40 US, pelvis 2023 [email or web address], [address], [place], [address], 08/15/2023 21:01:04 US, transvagi nal 2023 [email or web address], [place], [address], 08/15/2023 21:01:04 Medication Orders None recorded. Patient TargetsNo targets recorded. Patient InstructionsNo instructions recorded. Reason for Referral None Reported. Results Created Date Observation Date Name Description Value Unit Range Abnormal Flag Note LastModifiedBy Organization Detail LastModifiedTime 08/15/19 24 08/15/2023 US, pelminnie s No observ ation record ed. [address], [place], [address], 08/15/2023 18:15:20 08/15/19 24 08/15/2023 US, trans vagin al No observ ation record ed. [address], [place], [address], 08/15/2023 18:15:12 08/15/19 24 08/15/2023 US, feroz s No observ ation record ed. [email or web address] [address]ata [address], [place], [address], 08/15/2023 22:02:11 02/06/20 25 02/05/2025 , trans vagin al No observ ation record ed. [facility] [address], [place], [address], 02/05/2025 14:03:05 02/06/20 25 02/05/2025 , trans vagin al No observ ation record ed. [email or web address] Aminata [address], [place], [address], 02/05/2025 21:19:27 Result Notes None recorded. 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 11:06:52 Pregnanc y detectio n examinat ion Completed 201811/06/2020 Encounte r for pregnanc y test, result positive ;Recorde d Elsewher e: No Locat ion: [facility] S ource: EHR Start Up Specialist karin: N Gabbyti ce ID: 0001 Gerard lable Time: 03:00:00 PM Radha coelho, [facility] 1 11:06:46 Gestatio n period, 8 weeks [id number] Completed 201811/06/2020 8 weeks gestatio n of pregnanc y;Record ed Elsewher e: No Locat ion: [facility] S ource: EHR Start Up Specialist karin: N Gabbyti ce ID: 0001 Gerard lable Time: 10:00:00 AM Radha Burroughstz meliton, [facility] 11:06:40 Antenata l screenin g Completed 201811/06/2020 Encounte r for antenata l screenin g for nuchal transluc ency;Rec orded Elsewher e: No Locat ion: [facility] S ource: EHR Start Up Specialist karin: N Gabbyti ce ID: 0001 Gerard lable Time: 02:15:00 PM Radha Burroughstz meliton, [facility] 1 11:06:33 Normal pregnanc y in multigra hema [id number] 4106 Completed 201911/06/2020 Encounte r for suprvsn of normal pregnanc y, second trimeste r;Record ed Elsewher e: No Locat ion: [facility] S ource: EHR Start Up Specialist karin: N Gabbyti ce ID: 0001 Gerard lable Time: 02:45:00 PM Radha coelho, [facility] 1 11:06:44 Pregnanc y, childbir th and puerperi um finding Completed 201911/06/2020 Encounte r for supervis ion of normal 1st pregnanc y;Record ed Elsewher e: No Locat ion: [facility] S ource: EHR Start Up Specialist karin: N Gabbyti ce ID: 0001 Gerard lable Time: 04:45:00 PM Radha coelho, [facility] 11:06:48 Antenata l screenin g for malforma tion Completed 201911/06/2020 Encounte r for antenata l screenin g for malforma tions;Re corded Elsewher e: No Locat ion: [facility] S ource: EHR Start Up Specialist karin: N Gabbyti ce ID: 0001 Gerard lable Time: 03:45:00 PM Radha Swain [facility], [facility] 11:06:35 malforma tion of central nervous system [id number] 07 Completed 201911/06/2020 Maternal care for (suspect ed) cnsl malform in fetus, unsp;Rec orded Elsewher e: No Locat ion: [facility] S ource: EHR Start Up Specialist karin: N Gabbyti ce ID: 0001 Gerard lable Time: 02:45:00 PM Radha coelho, [facility] 11:06:42 Gestatio n period, 28 weeks 81976949 Completed 201911/06/2020 28 weeks gestatio n of pregnanc y;Record ed Elsewher e: No Locat ion: Yen jodran [facility] S ource: EHR Start Up Specialist karin: N Gabbyti ce ID: 0001 Gerard lable Time: 02:45:00 PM Radha Swain [facility], [facility] 1 11:06:38 Pregnanc y, childbir th and puerperi um finding Completed 201911/06/2020 Encntr for suprvsn of normal first preg, third trimeste r;Record ed Elsewher e: No [facility]: EHR Start Up Specialist karin: N Gilberto ce ID: 0001 Gerard lable Time: 03:15:00 PM Radha coelho, [facility] 1 11:06:50 Pregnanc y [id number] Completed 201902/08/2020 Cheryl Ashley coelho, [facility] 0 10:21:33 Problem Notes None recorded. Procedures Surgical History Date Name Laterality Status Provider Name and Address Organization Details Recorded Time 11/20/19 23 Control Implant Removal completed Sheldon Shelton MD [address], [place], [address], [facility] 11/19/2022 16:05:54 11/04/19 23 TOTAL HYSTERECTOMY, LAPAROSCOPIC, WITH BILATERAL SALPINGECTOMY (SURG) completed Salma Cardoza [facility] 11/04/2022 11:09:26 11/05/19 22 Control Implant Insertion completed Sheldon Shelton MD [address], [place], [address], [facility] 11/04/2021 16:49:20 10/30/19 21 Date of Last Pap Smear completed Radha Swain [facility] 11/06/2020 11:04:49 06/12/19 17 laparoscopy completed Radha Swain [facility] 07/31/2019 12:33:49 12/07/19 15 Laparoscopy completed Radha Swain [facility] 07/31/2019 12:23:09 03/28/19 02 Tonsillectomy completed Radha Swain [facility] 07/31/2019 12:34:01 Imaging Results None recorded. Procedure Notes None recorded. Medical Equipment None Reported. Allergies Allergen ID Allergen Name Allergen Category Reaction Reaction Severity Criticality Documentation Date Start Date Code Code System Note Provider Name and Address Organization Details Recorded Time 234 amoxicill in medicatio n Not available Not available Not available 07/13/2019 723 RxNorm Vianey Barclay [facility] 0 15:56:56 235 Product containin g penicilli n (product) medicatio n Not available Not available Not available 07/13/2019 00727 8001 SNOMED Vianey Barclay [facility] 0 15:57:13 236 potassium medicatio n Not available Not available Not available 07/13/2019 8588 RxNorm Radha Swain [facility] 0 14:56:52 Medications Name Sig Start [...] the onset of menses 11/06 completed Prescrib timbo Garsia e: Yes Loca tion: [facility] Stephon odyumi By: lex phelps DateTime : 02/13/20 03:00:00 PM Not Available Not Available Not [...] Prescrib timbo Garsia e: No Locat ion: [facility] odify By: [email or web address] Encount er DateTime : 03/13/20 02:45:00 PM [...] Available Not Available Not Available Afluria Qd (36 mos up)(PF)60 mcg (15 mcg x4)/0.5 mL IM syringe 11/06 completed Not Available Not Available Not Available Vitals Date Recorded Body height Body mass index (BMI) Body weight Systolic And Diastolic Provider Name and Address Organization Details Last Updated DateTime 08/18/2023 168.28 cm 22.1 kg/m2 03883.75 g 92/66 mm[Hg] Ritu Ling [facility] 08/18/2023 16:36:45 Date Recorded Body height Body mass index (BMI) Body weight Systolic And Diastolic Provider Name and Address Organization Details Last Updated DateTime 01/29/2025 168.28 cm 21.9 kg/m2 57321.15 g 108/74 mm[Hg] [facility] 01/29/2025 11:07:19 Date Recorded Body height Body mass index (BMI) Body weight Systolic And Diastolic Provider Name and Address Organization Details Last Updated DateTime 02/11/2025 168.28 cm 22.6 kg/m2 45277.52 g 110/73 mm[Hg] [facility] 02/11/2025 12:08:07 Social History Question Answer Notes LastModified by Organizat ion Details LastModified Time Tobacco Smoking Status Former Smoker Sol Estrada [facility] 11/19/2022 15:36:08 Do You Have An Advance Directive? No [email or web address] Information not available 03/03/2021 If You Are , What Was Your Level Of Alcohol Consumption Prior To ? None Information not available 11/19/2022 How Many Years Have You Consumed Alcohol? 7 [email or web address] Information not available 08/10/2023 Are You Blind Or Do You Have Difficulty Seeing? No Information not available 03/03/2021 What Is Your Level Of Caffeine Consumption? Heavy [email or web address] Information not available 03/03/2021 How Much Tobacco Do You Chew? None [email or web address] Information not available 03/03/2021 In The 14 Days Before Symptom Onset, Have You Had Close Contact With A Laboratory-[facility] COVID-19 While That Case Was Ill? No [email or web address] Information not available 03/03/2021 In The 14 Days Before Symptom Onset, Have You Had Close Contact With A Person Who Is Under Investigation For COVID-19 While That Person Was Ill? No [email or web address] Information not available 03/03/2021 Have You Been To An Area Known To Be High Risk For COVID-19? No [email or web address] Information not available 03/03/2021 Are You Deaf Or Do You Have Serious Difficulty Hearing? No [email or web address] Information not available 03/03/2021 What Type Of Diet Are You Following? VEGETARIAN [email or web address] Information not available 03/03/2021 What Is The Highest Grade Or Level Of School You Have Completed Or The Highest Degree You Have Received? MI30684-1 [email or web address] Information not available 03/03/2021 Are There Any Guns Present In Your Home? Yes [email or web address] Information not available 03/03/2021 What Was The Date Of Your Most Recent Tobacco Screening? 03/03/2021 Information not available 11/19/2022 Do You Use Protection During Sex? No [email or web address] Information not available 03/03/2021 Do You Use Your Seat Belt Or Car Seat Routinely? Yes [email or web address] Information not available 03/03/2021 Are You Sexually Active? Yes [email or web address] Information not available 08/10/2023 Do You Have Smoke And Carbon Monoxide Detectors In Your Home? Yes [email or web address] Information not available 03/03/2021 How Much Tobacco Do You Smoke? No [email or web address] Information not available 08/31/2019 Smoking Pre- No Information not available 11/19/2022 Do You Use Sunscreen Routinely? Yes [email or web address] Information not available 03/03/2021 Have You Used IV Drugs? No [email or web address] Information not available 03/03/2021 Do You Have Difficulty Walking Or Climbing Stairs? No Information not available 11/19/2022 Sex: Female Functional Status Question Answer Note LastModified by Organizat ion Details LastModified Time Do you use any illicit or recreational drugs? Yes [email or web address] Information not available 03/03/2021 What is your level of alcohol consumption? Occasional [email or web address] Information not available 08/31/2019 Do you or have you ever used smokeless tobacco? Never used smokeless tobacco Information not available 11/19/2022 Are you currently employed? Yes Information not available 08/10/2023 Are you able to walk independently without assistance or assistive devices? YESWOREST [email or web address] Information not available 03/03/2021 Are you able to care for yourself independently? 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 No Information not available 11/19/2022 Do you or have you ever used e-cigarettes or vape? Never used electronic cigarettes Information not available 11/19/2022 What is your exercise level? Occasional [email or web address] Information not available 08/10/2023 Mental Status Question Answer Note LastModified by Organization D etails LastModified Time Do you feel stressed (tense, restless, nervous, or anxious, or unable to sleep at night)? [id number] [email or web address] Information not available 03/03/2021 Family History Relationship [...] 11:43:07 Paternal Grandmother Malignant neoplasm of ovary [email or web address] Not available 2022 17:14:15 Medical History Condition Response Allergies (Food, seasonal, environmental ) Y Other Y Drug/Latex Allergies/Reactions N Breast Cancer N Blood Transfusion N Lung Disease N Dermatologic Disorders N Defects or Inherited Disease N Breast Problem N Gestational Diabetes N Hematologic disorders N Anesthesia Complications N History of STI N Deep Vein Thrombosis N Polycystic ovary syndrome N Anxiety Disorder Y Autoimmune disease N Arthritis Y Polyps N Infertility N History of abnormal pap N Acid Reflux (GERD) Y Cancer N Varicosities N Stroke N Neurologic/Epilepsy N Endometriosis Y High Cholesterol N Headaches Y Fibromyalgia N Kidney Disease N Heart Problems N Thyroid Problems N Kidney or Bladder Problems N GI Problems N Eating Disorder [...] Diagnosis IMO Codes Diagnosis Note 1240 [facility] [address],[facility] [place] [address] 07/13/2019 15:32:07 07/13/2019 16:40:27 Routine care 900130031 Z34.93 3111 Sheldon Shelton MD [facility] [address],[facility] [place] [address] 07/31/2019 11:43:44 07/31/2019 12:56:42 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 1226793 O35.0XX0 Z3A.32 3112 [facility] [address],[facility] [place] [address] 07/31/2019 11:44:39 07/31/2019 12:21:06 Routine care 184355335 Z34.93 4713 Marie Prakash [facility] [address],[place] [address] 08/14/2019 10:59:59 08/14/2019 12:35:01 Routine care 585564027 Z34.93 5474 Marie Prakash [facility] [address],[place] [address] 08/22/2019 11:15:24 08/22/2019 11:45:12 Routine care 292193529 Z34.93 6684 Marie Prakash [facility] [address],[place] [address] 08/31/2019 09:51:52 08/31/2019 13:57:24 Routine care 733120963 Z34.93 7753 Marie Prakash [facility] [address],[place] [address] 09/07/2019 12:48:02 09/07/2019 13:53:40 Routine care 224555336 Z34.93 8669 Marie Prakash [facility] [address],[place] [address] 09/14/2019 10:58:23 09/14/2019 12:28:33 Routine care 315950535 Z34.93 95442 Marie Prakash [facility] [address],[place] [address] 11/20/2019 14:48:58 11/20/2019 16:45:46 Anxiety 40600078 F41.9 Vaginitis 08158812 N76.0 78298 Lelo Alexandre [address] [address] 12/18/2019 10:10:37 12/18/2019 12:41:36 Vaginitis 41014198 N76.0 Discussed use of mild soap like dove or ivory, cotton underwear w/out dye, hypoallerg enic detergent, wipe from front to back, avoid tub baths, keep perineum clean and dry, d/c use of baby wipes. Encouraged daily intake of yogurt or womens health probiotic. Has failed 2 treatments . WIll send extended panel. 48097 Marie Prakash [facility] [address],[place] [address] 01/18/2020 11:20:19 01/18/2020 15:02:57 Migraine 56224828 G43.909 rx for fiorinal given Mixed anxi ety and depressive disorder 324898640 F41.8 rf zoloft and wellbutrin 60627 Marie Prakash [facility] [address],[place] [address] 10/29/2020 14:02:53 10/30/2020 10:16:33 Gynecologic examination 01509972 Z01.419 49933 Marie Prakash [facility] [address],[place] [address] 03/03/2021 10:37:45 03/03/2021 11:17:06 Irregular periods 89706558 N92.6 Pain in pelvis 87823032 R10.2 16341 Sheldon Shelton MD [facility] [address],[place] [address] 03/04/2021 12:29:52 03/04/2021 13:35:59 Irregular periods 73775543 N92.6 [id number] LEANNE Lerma [facility] [address],[place] [address] 08/25/2021 11:03:05 08/25/2021 12:40:35 Pain in pelvis 66597285 R10.2 Hx of endometrio sis.Trying for . [...] 4888 0000 N93.0 Venereal d isease screening 507856486 Z11.3 [id number] Sheldon Shelton MD [facility] [address] [address] 09/01/2021 15:00:07 09/01/2021 15:52:28 Pain in pelvis 50418426 R10.2 [id number] Sheldon Shelton MD [facility] [address] [address] 09/23/2021 13:58:49 09/23/2021 18:37:26 Pain in pelvis 08068251 R10.2 Premenstru al dysphoric disorder 795168 F32.81 this patient is a 26-year-ol d [...] out and a 26-year-ol d female at [facility]. We talked about treatment of libido. 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 I have samples for 1 month of Myfembree. she return in 1 month. [id number] Sheldon Shelton MD [facility] [address] [address] 10/21/2021 14:42:38 10/21/2021 15:43:28 Reduced libido 6084435 R68.82 This patient is a 26-year-ol d [...] treatment for pelvic pain. Pain in pelvis 76286106 R10.2 Endometrio sis of pelvis 24461855 N80.3 [id number] Sheldon Shelton MD [facility] [address],[place] [address] 11/04/2021 16:09:29 11/04/2021 17:33:56 Contraception care management 125985231 Z30.9 Nexplanon inserted without complicati ons. She tolerated well. [id number] Sheldon Shelton MD [facility] [address],[place] [address] 02/25/2022 15:24:54 02/26/2022 16:16:00 Reduced libido 4075799 R68.82 Briefly discussed low libido. Patient takes Zoloft and has the Nexplanon subdermal implant. These may be factors and her decreased libido. She is currently doing the magnetic therapy for depression . Meeting got cut short because of urgent matter in Labor and delivery. No charge [id number] Sheldon Shelton MD [facility] [address],[place] [address] 03/11/2022 14:23:30 03/12/2022 14:20:25 Reduced libido 2023354 R68.82 Briefly discussed low libido. Patient takes Zoloft and has the Nexplanon subdermal implant. These may be factors and her decreased libido. She is currently doing the magnetic therapy for depression . Meeting got cut short because of urgent matter in Labor and delivery. No charge [id number] Sheldon Shelton MD [facility] [address],[place] [address] 04/01/2022 14:15:58 04/02/2022 14:55:39 Reduced libido 6703125 R68.82 Briefly discussed low libido. Patient takes Zoloft and has the Nexplanon subdermal implant. These may be factors and her decreased libido. She is currently doing the magnetic therapy for depression . Meeting got cut short because of urgent matter in Labor and delivery. No charge [id number] Sheldon Shelton MD [facility] [address],[place] [address] 04/15/2022 14:24:08 04/15/2022 15:05:29 Reduced libido 2851079 R68.82 Briefly discussed low libido. Patient takes Zoloft and has the Nexplanon subdermal implant. These may be factors and her decreased libido. She is currently doing the magnetic therapy for depression . Meeting got cut short because of urgent matter in Labor and delivery. No charge [id number] Sheldon Shelton MD [facility] [address],[place] [address] 04/29/2022 15:00:38 04/30/2022 11:28:54 Reduced libido 3340112 R68.82 Briefly discussed low libido. Patient takes Zoloft and has the Nexplanon subdermal implant. These may be factors and her decreased libido. She is currently doing the magnetic therapy for depression . Meeting got cut short because of urgent matter in Labor and delivery. No charge [id number] Sheldon Shelton MD [facility] [address],[place] [address] 05/13/2022 14:37:34 05/13/2022 18:02:51 Reduced libido 2179836 R68.82 Briefly discussed low libido. Patient takes Zoloft and has the Nexplanon subdermal implant. These may be factors and her decreased libido. She is currently doing the magnetic therapy for depression . Meeting got cut short because of urgent matter in Labor and delivery. No charge [id number] Sheldon Shelton MD [facility] [address],[place] [address] 06/08/2022 16:30:28 06/08/2022 17:25:09 Reduced libido 5797265 R68.82 Briefly discussed low libido. Patient takes Zoloft and has the Nexplanon subdermal implant. These may be factors and her decreased libido. She is currently doing the magnetic therapy for depression . Meeting got cut short because of urgent matter in Labor and delivery. No charge [id number] Sheldon Shelton MD [facility] [address],[place] [address] 06/24/2022 14:00:01 06/25/2022 10:17:27 Injection given 658078358 Z98.890 Reduced libido 8967996 R 68.82 27-year-ol d female with decreased [...] about masculiniz ation. She is non binary. [id number] Sheldon Shelton MD [facility] [address],[place] [address] 09/30/2022 15:27:27 09/30/2022 16:32:25 Pain in pelvis 96011822 R10.2 this patient is a 27-year-ol d [...] with hysterecto my. Endometrio sis of pelvis 89612748 N80.9 [id number] Sheldon Shelton MD [facility] [address] [address] 10/25/2022 15:01:47 10/27/2022 10:47:58 Pain in pelvis 64668338 R10.2 this patient is a 27-year-ol d female with pelvic pain and endometrio sis. We have agreed to perform laparoscop ic hysterecto my and bilateral salpingect luly. She understand s the risks, benefits, and alternativ es. She has completed the informed consent process and is ready to proceed. [id number] Sheldon Shelton MD [facility] [address],[place] [address] 11/05/2022 09:55:08 11/05/2022 09:57:11 [id number] Sheldon Shelton MD [facility] [address],[facility] [place] [address] 11/11/2022 17:12:20 11/11/2022 18:13:05 Postoperative care 103189750 Z48.89 This patient is a 27-year-ol d female who is 1 week postop. She is postop from a total laparoscop ic hysterecto my and bilateral salpingect luly. She is recovering normally. Her incisions are clean dry and intact. She is doing very well. She will follow up for Nexplanon removal next week. [id number] Sheldon Shelton MD [facility] [address] [address] 11/19/2022 15:15:07 11/19/2022 16:15:36 Contraception care management 458226400 Z30.9 Nexplanon removed without complicati ons. She tolerated well. [id number] [facility] [address],[facility] [place] [address] 05/05/2023 11:52:56 05/05/2023 12:12:48 Venereal disease screening 152378562 Z11.3 STD urine sentWill reach out with resultsDec lined serum std panel Time spent in visit is a total of 15 mins with at least 50% of visit consisting of counseling and review of plan of care. [id number] Sheldon Shelton MD [facility] [address] [address] 08/10/2023 13:29:38 08/11/2023 23:52:41 Pain in pelvis 40802167 R10.2 28-year-ol d female with pelvic pain. [...] cystitis. We agreed to send to urogynecol ogy. She will have a pelvic ultrasound and return to see me. Spent over 20 minutes face-to-fa ce. More than 50% was counseling . [id number] Sheldon Shelton MD [facility] [address] [address] 08/15/2023 13:49:56 08/15/2023 14:36:07 Pain in pelvis 26292163 R10.2 28-year-ol d female with pelvic pain. [...] cystitis. We agreed to send to urogynecol ogy. She will have a pelvic ultrasound and return to see me. Spent over 20 minutes face-to-fa ce. More than 50% was counseling . [id number] Sheldon Shelton MD [facility] [address] [address] 08/18/2023 16:13:14 08/19/2023 04:51:11 Pain in pelvis [id number] R10.2 28-year-ol d female presents for follow-up [...] referral was reopened and sent to staff. [id number] Sheldon Shelton MD [facility] [address],[facility] [place] [address] 01/29/2025 10:31:56 01/29/2025 20:56:09 [id number] Sheldon Shelton MD [facility] [address],[facility] [place] [address] 02/05/2025 11:49:32 02/05/2025 12:18:10 Pain in pelvis [id number] R10.20 [id number] Sheldon Shelton MD [facility] [address],[place] [address] 02/11/2025 11:43:00 02/11/2025 13:30:00 Pain in pelvis [id number] R10.20 [id number] This patient is a 29-year-ol d female with longstandi ng pelvic pain and endometrio sis. She is status post hysterecto my. She would like her ovaries removed out to more aggressive ly treat pelvic pain and endometrio sis. We agreed to move forward with laparoscop ic bilateral oophorecto my. The patient understand s the procedure. The procedure was described to the patient in great detail. the patient also understand s the risks. The risks were also explained in detail. She understand s that injuries May occur during surgery. She understand s these injuries can result in hospitaliz ation, more surgery, and severe illness. She understand s there is risk of hemorrhage and infection. Spent over 30 minutes on her care in total, including a documentat ion Health Concerns Section Related Observation LastModified by Organization Alvarado bonilla LastModified Time None Recorded Concern Status LastModified by Organization Details LastModified Time None Recorded Advance Directives Directive N: Payers Insurance Date Sequence Insurance Name Policy Number Policy Orosco Covered Member ID Orosco Member ID Guarantor Name 10/27/2020 1 [employer]-[place] (PPO) [id number] Yon Montoya [id number] Rose Lerner 08/25/2021 1 [facility] [id number] Blade Lerner [id number] Rose Lerner 02/08/2025 1 [facility] BENEFIT PLAN MANAGEMENT - [facility] Brittanie Lerner [id number] Rose Lerner Notes Date Note Type Note Provider Name and Address Organization Details Recorded Time 08/18/2023 text/html 28-year-old female presents for follow-up [...] staff. Sheldon Shelton MD [address], [place], [address], [facility] 08/18/2023 21:08:09 02/11/2025 text/html This patient is a 29-year-old female with longstanding pelvic pain and endometriosis. She is status post hysterectomy. She would like her ovaries removed out to more aggressively treat pelvic pain and endometriosis. We agreed to move forward with laparoscopic bilateral oophorectomy. The patient understands the procedure. The procedure was described to the patient in great detail. the patient also understands the risks. The risks were also explained in detail. She understands that injuries May occur during surgery. She understands these injuries can result in hospitalization, more surgery, and severe illness. She understands there is risk of hemorrhage and infection. Sheldon Shelton MD [address] [place], [address], [facility] 02/11/2025 13:20:40 OBGyn Episode Ob Episode Information Episode Created Date Number of Fetuses Patient Bloodtype Patient rh Status Prepregnancy Weight lbs Domestic Partner Domestic Partner Phone Father Name Financial Analyst Accountant Status 07/13/19 20 1 O Positive 136 [...] Gestation 0 jgumber 07/13/2019 09/19/19 20 0 Pre- Flowsheet Flowsheet Date 07/13/2019 Leon Score Blood Edema Fundus Height Fundus Units Glucose Ketones Leukocytes Nitrite Labor Signs Protein Cervic Dilation Cervic Effacement Cervic Station 31 Type Weight in lbs Pre/Post Dialysis Refused Weight 165.326385208049 BP Diastolic BP Location Tested BP Systolic BP Type 73 107 sitting Fetus Heart Rate Present A 155 Fetus Movement A Yes Comments Pt c/o discomfort , painful spot on stomach , 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, 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, 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 or hernia, [...] Weight in lbs Pre/Post Dialysis Refused Weight 164.04504831686 BP Diastolic BP Location Tested BP Systolic BP Type 70 106 Fetus Heart Rate Present A 155 Present Fetus Movement Comments growth us after visit today, Flowsheet Date 08/14/2019 Leon Score Blood Edema Fundus Height Fundus Units Glucose Ketones Leukocytes Nitrite Labor Signs Protein Cervic Dilation Cervic Effacement Cervic Station neg none 34 trace Type Weight in lbs Pre/Post Dialysis Refused Weight 168.215387728232 BP Diastolic BP Location Tested BP Systolic [...] Weight in lbs Pre/Post Dialysis Refused Weight 166.576837392336 BP Diastolic BP Location Tested BP Systolic [...] Weight in lbs Pre/Post Dialysis Refused Weight 169.275108296239 BP Diastolic BP Location Tested BP Systolic [...] Weight in lbs Pre/Post Dialysis Refused Weight 167.696028053579 BP Diastolic BP Location Tested BP Systolic [...] Weight in lbs Pre/Post Dialysis Refused Weight 136.979280029293 BP Diastolic BP Location Tested BP Systolic [...] Weight in lbs Pre/Post Dialysis Refused Weight 145.3147389613 BP Diastolic BP Location Tested BP Systolic [...] Weight in lbs Pre/Post Dialysis Refused Weight 150.169484304513 BP Diastolic BP Location Tested BP Systolic [...] Weight in lbs Pre/Post Dialysis Refused Weight 155.42550368561 BP Diastolic BP Location Tested BP Systolic BP Type 68 104 sitting Fetus Heart Rate Present Fetus Movement A Yes Comments OB [id number] pt states that valderrama ving nausea, vomiting, cramping, normal discharge, dizziness, dry and rash on hands, feeling better on zoloft, anatomy complete Flowsheet Date 06/29/2019 Leon Score Blood Edema Fundus Height Fundus Units Glucose Ketones Leukocytes Nitrite Labor Signs Protein Cervic Dilation Cervic Effacement Cervic Station none trace Type Weight in lbs Pre/Post Dialysis Refused Weight 156.589734664000 BP Diastolic BP Location Tested BP Systolic BP Type 65 99 sitting Fetus Heart Rate Present Fetus Movement A Yes Comments OB [id number] pt states that valderrama ving little pelvic pain, leg pain, discharge and not sleeping us today rpt 4 weeks Flowsheet Date 09/14/2019 Leon Score Blood Edema Fundus Height Fundus Units Glucose Ketones Leukocytes Nitrite Labor Signs Protein Cervic Dilation Cervic Effacement Cervic Station neg none 37 trace 1cm 60% -3 Type Weight in lbs Pre/Post Dialysis Refused Weight 169.621461035094 BP Diastolic BP Location Tested BP Systolic [...] Weight in lbs Pre/Post Dialysis Refused Weight 142.466930767750 BP Diastolic BP Location Tested BP Systolic BP Type 65 117 Fetus Heart Rate Present Fetus Movement Comments Flowsheet Date 12/18/2019 Leon Score Blood Edema Fundus Height Fundus Units Glucose Ketones Leukocytes Nitrite Labor Signs Protein Cervic Dilation Cervic Effacement Cervic Station Type Weight in lbs Pre/Post Dialysis Refused Weight 142.725605933148 BP Diastolic BP Location Tested BP Systolic BP Type 62 98 Fetus Heart Rate Present Fetus Movement Comments Flowsheet Date 01/18/2020 Leon Score Blood Edema Fundus Height Fundus Units Glucose Ketones Leukocytes Nitrite Labor Signs Protein Cervic Dilation Cervic Effacement Cervic Station Type Weight in lbs Pre/Post Dialysis Refused Weight 142.054842814392 BP Diastolic BP Location Tested BP Systolic [...] Complications Tubal Sterilization Discharge Date Comments 0 Augmen [facility]-Ep idural 39.4 GBS+ Discharge Information Feeding Method Contraceptive Method Maternal HG B and HCT Levels Ob Episode Information Episode Created Date Number of Fetuses Patient Bloodtype Patient rh Status Prepregnancy Weight lbs Domestic Partner Domestic Partner Phone Father Name Financial Analyst Accountant Status 10/02/19 20 1 DELETED Segundo Calculation [...]
--- OUTSIDE RECORDS SUMMARY | 2025-02-17 13:10 | XMS_ITS | Clinical Summary ---
Author Organization [facility] Address [address] [place] [address] Phone Care Team Providers Care Cigar Patcher Name Role Phone Mitzi Cardenas APRN, MANAGER TRANSFER Primary Care Prov ider Allergies Active Allergy [...] propranolol (INDERAL) 10 MG Tablet 5 Active FLUoxetine (PROzac) 40 MG Capsule Take 40 mg by mouth daily. Active ondansetron (ZOFRAN-ODT) 4 MG TABLET DISPERSIBLE Take 1 Tablet by mouth every 8 hours as needed for Nausea - 1st line. 10 Tablet 5 Active omeprazole (PriLOSEC) 40 MG [...] Type Department Care Team Description 01/13/2025 Refill [facility] [place] [address] [place] [address] Mitzi Cardenas, NIGHT SUPERVISOR, MANAGER TRANSFER Medication Refill from Last 3 Months Immunizations Immunization Administration Dates Next Due Covid-19, Mrna, Lnp-s, Pf, 3 0 Mcg/0.3 Ml Dose (Social & Loyal) 06/17/2020 DTAP VACCINE, UNSPECIFIED FORMULATION 07/30/1998 ,05/06/1994,1993 [...] = 0.6 oz pur e alcohol) daily [place] Utilities Answer Date Recorded In the past 12 months has [employer], gas, oil, or water [employer] threatened to shut off services in your home? No 04/15/2023 Social Connection and Isolation Panel Answer Date Recorded In a typical week, how many times do you talk on the phone with family, friends, or neighbors? Once a week 04/15/2023 How often do you get togethe r with friends or relatives? Once a week 04/15/2023 How often do you attend [facility] or anglican services? Never 04/15/2023 Do you belong to any clubs o r organizations such as muslim groups, unions, fraternal or athletic groups, or [...] Total Score - Questions 1-9 0 06/26 [facility] - [...] place to sleep or slept in a mcc (including now)? No 04/15/2023 Education Answer Date Recorded What is the highest level of school you have completed or the highest degree you have received? Bachelor's degree (e.g., BA, AB, BS) 02/03/2020 Sexually Active Control Partners Comments Yes Male Comments No Sex and Gender Information Value Date Recorded Sex Assigned at Female 03/06/2023 10:14 PM STRAW HAT BRUSHER Legal Sex Female 3:51 AM STRAW HAT BRUSHER Gender Identity Other 04/15/2023 8:49 PM STRAW HAT BRUSHER Sexual Orientation Something else 03/06/2023 10 :14 PM STRAW HAT BRUSHER Occupation Industry Job Start Date Job End [...] 02/28/2023, 01/14/2021, Additional history exists SARS-COV-2 Immunization (2024- season) 2024 02/28/2023, 03/04/2021, 07/15/2020, Additional history [...] patient's age to complete this topic Insurance [facility] Advance Directives * Full Code (Latest Code Status on File) Date Activated Date Inactivated Comments 01/25/2020 12:03 PM 01/27/2020 2:13 PM CPR-Full T reatment: FULL ARREST: Attempt Resuscitation/CPR wit intubation and mechanical ventilation. PRE-ARREST: Use entire range of life support measures to stabilize the patient. Care Teams Cigar Patcher Relationship Specialty Start Date End Date Mitzi Cardenas, NIGHT SUPERVISOR, MANAGER TRANSFER [address] [address] PCP - General Advanced Practice Nurse 01/23/19
--- OUTSIDE RECORDS SUMMARY | 2025-02-17 13:10 | XMS_ITS | Encounter Summary ---
Author Organization [facility] Address [address] [place] [address] Phone Care Team Providers Care Operations Intelligence Name Role Phone Mitzi Cardenas APRN, PERIPATOLOGIST Primary Care Prov ider Reason for Visit * Reason Comments Medication Refill Encounter Details Date Type Department Care Team (Late st Contact Info) Description 04/27/2020 Refill [facility] - [place] [address] [place] [address] Mitzi Cardenas APRN, PERIPATOLOGIST [address] [address] Medication Refill Social History Tobacco [...] Sex Assigned at Female 03/06/2023 10:14 PM PAPER SAMPLE CLERK Legal Sex Female 3:51 AM PAPER SAMPLE CLERK Gender Identity Other 04/15/2023 8:49 PM PAPER SAMPLE CLERK Sexual Orientation Something else 03/06/2023 10 :14 PM PAPER SAMPLE CLERK Occupation Industry Job Start Date Job End Date [employer] Not on file Not on file Not on file documented as of this encounter Miscellaneous Notes * Telephone Encounter - Kesha Lindsay RN - 04/28/2020 4:20 PM PAPER SAMPLE CLERK Patient calling states she did not stop taking the sertraline when she was or while she was breast feeding. She is no longer . R SAMPLE CLERK * Telephone Encounter - Roxanna Cronin RN - 04/28/2020 3:46 PM CST LVM for pt to return call to office. See Mitzi's note below. R SAMPLE CLERK * Telephone Encounter - Mitzi Cardenas APN, CNP - 04/28/2020 2:26 PM PAPER SAMPLE CLERK Please clarify if she is still . I believe she stopped this when she became ? R SAMPLE CLERK * Telephone Encounter - Roxanna Cronin RN [...] CNP 11 months ago Fever and chills [facility] - Mitzi Rodriguez APN, PERIPATOLOGIST 1 year ago Endometriosis [facility] - Mitzi Rodriguez APN, PERIPATOLOGIST Upcoming Appointments TAX ASSISTANT - Recent and Past Visits Recent Visits Date Type Provider Dept 02/04/20 Telemedicine Mitzi Cardenas APN, ARNOL [facility] [place] 05/21/19 [facility]N, C[facility] Showing recent visits within past 460 days with a meds authorizing provider and meeting all other requirements Future Appointments No visits were found meeting these conditions. Showing future appointments within next 90 days with a meds authorizing provider and meeting all other requirements R SAMPLE CLERK * Telephone Encounter - Alannah Pressley RN [...] Outpatient Visits 2 months ago Thrombocytopenia (HCC) [facility] - Mitzi Rodriguez APN, PERIPATOLOGIST 11 months ago [facility], PERIPATOLOG[facility] 1 year ago Endometriosis [facility] - Mitzi Rodriguez APN, PERIPATOLOGIST Upcoming Appointments TAX ASSISTANT - Recent and Past Visits Recent Visits Date Type Provider Dept 02/04/20 Telemedicine Mitzi Cardenas APN, PERIPATOLOGIST [facility] [place] 05/21/19 Office Visit Mitzi Cardenas APN, CNP [facility] Showing recent visits within past 460 days with a meds authorizing provider and meeting all other requirements Future Appointments No visits were found meeting these conditions. Showing future appointments within next 90 days with a meds authorizing provider and meeting all other requirements R SAMPLE CLERK documented in this encounter Plan of Treatment Not on file documented as of this encounter Visit Diagnoses Diagnosis Depression, unspecified depression type documented in this encounter Additional Health Concerns Infection Onset Date Last Indicated Resolved Time Respiratory Rule-Out 05/16/2024 05/16/2024 025 2:53 PM PAPER SAMPLE CLERK Influenza 05/16/2024 05/16/2024 05/23/2024 12:1 7 AM PAPER SAMPLE CLERK COVID - 19 09/04/2024 09/04/2024 09/04/2024 12:0 7 PM CDT Assessment Noted Time PHQ-9 Depression Total Score: 0 02/04/20 20 11:10 AM PAPER SAMPLE CLERK documented as of this encounter Care Teams Operations Intelligence Relationship Specialty Start Date End Date Mitzi Cardenas, CLAIMS REPRESENTATIVE, PERIPATOLOGIST [address] [address] PCP - General Advanced Practice Nurse 01/23/19 documented as of this encounter
--- OUTSIDE RECORDS SUMMARY | 2025-02-17 13:10 | XMS_ITS | Encounter Summary ---
Author Organization [facility] Address [address] [place] [address] Phone Care Team Providers Care Power Line Installer Name Role Phone Mitzi Cardenas APRN, ARNOL Primary Care Prov ider Reason for Visit * Reason Comments Medication Refill Encounter Details Date Type Department Care Team (Late st Contact Info) Description 07/15/2023 Refill [facility] [address] [place] [address] Mitzi Cardenas APRN, REAL ESTATE CLOSER [address] [address] Medication Refill Social History Tobacco Use Types Packs/Day Years Used Date Smoking Tobacco: Former Cigarettes 0.3 3 0 03/28/2012 - 03/28/2015 Smokeless Tobacco: Never Comments:hookah Alcohol Use Standard Drinks/Week Comments Yes 0 (1 standard drink = 0.6 oz pur e alcohol) not typically [facility] Utilities Answer Date Recorded In the past 12 months has [employer], gas, oil, or water company threatened [...] any clubs o r organizations such as lutheran groups, unions, fraternal or athletic groups, or [...] Total Score - Questions 1-9 0 06/26 [facility] - Occupational [...] place to sleep or slept in a usp (including now)? No 04/15/2023 Education Answer Date Recorded What is the highest level of school you have completed or the highest degree you have received? Bachelor's degree (e.g., BA, AB, BS) 02/03/2020 Sexually Active Control Partners Comments Yes Male Comments No Sex and Gender Information Value Date Recorded Sex Assigned at Female 03/06/2023 10:14 PM CIGARETTE MAKING MACHINE CATCHER Legal Sex Female 3:51 AM CIGARETTE MAKING MACHINE CATCHER Gender Identity Other 04/15/2023 8:49 PM CIGARETTE MAKING MACHINE CATCHER Sexual Orientation Something else 03/06/2023 10 :14 PM CIGARETTE MAKING MACHINE CATCHER Occupation Industry Job Start Date Job End Date [employer] Not on file Not on file Not on file documented as of this encounter Miscellaneous Notes * Telephone Encounter - Roxanna Cronin RN - 07/15/2023 11:59 AM CDT Medication(s) [facility] Medication Refill Standing Order for [...] 05/25/23 Office Visit Marco A Jenkins MD [facility] 04/15/23 Office Visit Mitzi Cardenas APRN, REAL ESTATE CLOSER [facility] Showing recent visits within past 365 [...] Respiratory Rule-Out 05/16/2024 05/16/2024 025 2:53 PM CIGARETTE MAKING MACHINE CATCHER Influenza 05/16/2024 05/16/2024 05/23/2024 12:1 7 AM CIGARETTE MAKING MACHINE CATCHER COVID - 19 09/04/2024 09/04/2024 09/04/2024 12:0 7 PM CDT Assessment Noted Time PHQ-9 Depression Total Score: 0 07/11/19 21 1:24 PM CDT documented as of this encounter Care Teams Power Line Installer Relationship Specialty Start Date End Date Mitzi Cardenas, MANAGER INTENSIVE CARE, REAL ESTATE CLOSER [address] [address] PCP - General Advanced Practice Nurse 01/23/19 documented as of this encounter
--- OUTSIDE RECORDS SUMMARY | 2025-02-17 13:10 | XMS_ITS | Continuity of Care Document ---
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 [...] recorded. Surgeries oophorect luly (SURG) 2024 026 [facility] [place] [facility], [address] [address], [place], [address], 02/14/2025 15:02:37 Imaging None recorded. Medication Orders None recorded. Patient TargetsNo targets recorded. Patient InstructionsNo instructions recorded. Reason for Referral None Reported. Results Created Date Observation Date Name Description Value Unit Range Abnormal Flag Note LastModifiedBy Organization Detail LastModifiedTime 02/06/2002/05/2025 , doroteo betts al No observ ation record ed. [facility] [address], [place], [address], 02/05/2025 14:03:05 02/06/20 25 02/05/2025 US, doroteo sanchezin al No observ ation record ed. [email or web address] Aminata [address], [place], [address], 02/05/2025 21:19:27 Result Notes None recorded. 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 1 11:06:35 malforma tion of central nervous system [id number] 07 Completed 201911/06/2020 Maternal care for (suspect ed) cnsl malform in fetus, unsp;Rec orded Elsewher e: No 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 1 11:06:50 Pregnanc y 11403027 Completed 201902/08/2020 Cheryl coelho [facility] 0 10:21:33 Problem Notes None recorded. Procedures Surgical History Date Name Laterality Status Provider Name and Address Organization Details Recorded Time 11/20/19 23 Control Implant Removal completed Sheldon Shelton MD [address], [place], [address], [facility] 11/19/2022 16:05:54 11/04/19 23 TOTAL HYSTERECTOMY, LAPAROSCOPIC, WITH BILATERAL SALPINGECTOMY (SURG) completed Salma Cardoza [facility] 11/04/2022 11:09:26 11/05/19 22 Control Implant Insertion completed Sheldon Shelton MD [address], [place], [address], [facility] 11/04/2021 16:49:20 10/30/19 21 Date of Last Pap Smear completed Radha Swain [facility] 11/06/2020 11:04:49 06/12/19 17 laparoscopy completed Radha Swain [facility] 07/31/2019 12:33:49 12/07/19 15 Laparoscopy completed Radha Burroughstz [facility] 07/31/2019 12:23:09 03/28/19 02 Tonsillectomy completed aRdha Burroughstz [facility] 07/31/2019 12:34:01 Imaging Results None recorded. Procedure Notes None recorded. Medical Equipment None Reported. Allergies Allergen ID Allergen Name Allergen Category Reaction Reaction Severity Criticality Documentation Date Start Date Code Code System Note Provider Name and Address Organization Details Recorded Time 234 amoxicill in medicatio n Not available Not available Not available 07/13/2019 723 RxNorm V[facility]ey [facility] 0 15:56:56 235 Product containin g penicilli n (product) medicatio n Not available Not available Not available 07/13/2019 59621 8001 SNOMED Vianey [facility] 0 15:57:13 236 potassium medicatio n Not available Not available Not available 07/13/2019 8588 RxNorm [facility] 14:56:52 Medications [...] onset of menses 11/06 [facility] L[facility] t[facility] odify By: lex phelps DateTime : 02/13/20 03:00:00 [...] capsules per 24hrs 11/06 completed Prescrib ed Stanher e: No Locat ion: [facility] odify By: Encount er DateTime : 03/13/20 19 02:45:00 [...] Updated DateTime 02/11/2025 168.28 cm 22.6 kg/m2 09788.52 g 110/73 mm[Hg] Charley Orellana [facility] 02/11/2025 12:08:07 Social History Question Answer Notes LastModified by Organizat ion Details LastModified Time Tobacco Smoking Status Former Smoker Sol Estrada meliton, [facility] 11/19/2022 15:36:08 Do You Have An Advance Directive? No Information not available 03/03/2021 If You Are , What Was Your Level Of Alcohol Consumption Prior To ? None Information not available 11/19/2022 How Many Years Have You Consumed Alcohol? 7 [email or web address] Information not available 08/10/2023 Are You Blind Or Do You Have Difficulty Seeing? No [email or web address] Information not available 03/03/2021 What Is Your Level Of Caffeine Consumption? Heavy [email or web address] Information not available 03/03/2021 How Much Tobacco Do You Chew? None [email or web address] Information not available 03/03/2021 In The 14 Days Before Symptom Onset, Have You Had Close Contact With A Laboratory-confir med COVID-19 While That Case Was Ill? No [email or web address] Information not available 03/03/2021 In The 14 [...] Do You Have Serious Difficulty Hearing? No [email or web address] Information not available 03/03/2021 What Type Of Diet Are You Following? VEGETARIAN Information not available 03/03/2021 What Is The Highest Grade Or Level Of School You Have Completed Or The Highest Degree You Have Received? [id number] Information not available 03/03/2021 Are There Any Guns Present In Your Home? Yes [email or web address] Information not available 03/03/2021 What Was The Date Of Your Most Recent Tobacco Screening? 03/03/2021 Information not available 11/19/2022 Do You Use Protection During Sex? No [email or web address] Information not available 03/03/2021 Do You Use Your Seat Belt Or Car Seat Routinely? Yes [email or web address] Information not available 03/03/2021 Are You Sexually Active? Yes Information not available 08/10/2023 Do You Have Smoke And Carbon Monoxide Detectors In Your Home? Yes Information not available 03/03/2021 How Much Tobacco Do You Smoke? No Information not available 08/31/2019 Smoking Pre- No Information not available 11/19/2022 Do You Use Sunscreen Routinely? Yes [email or web address] Information not available 03/03/2021 Have You Used IV Drugs? No [email or web address] Information not available 03/03/2021 Do You Have Difficulty Walking Or Climbing Stairs? No Information not available 11/19/2022 Sex: Female Functional Status Question Answer Note LastModified by Organizat ion Details LastModified Time Do you use any illicit or recreational drugs? Yes [email or web address] Information not available 03/03/2021 What is your level of alcohol consumption? Occasional Information not available 08/31/2019 Do you or have you ever used smokeless tobacco? Never used smokeless tobacco Information not available 11/19/2022 Are you currently employed? Yes Information not available 08/10/2023 Are you able to walk independently without assistance or assistive devices? YESWOREST [email or web address] Information not available 03/03/2021 Are you able to care for yourself independently? 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 [id number] [email or web address] Information not available 03/03/2021 Family History Relationship [...] 11:43:07 Paternal Grandmother Malignant neoplasm of ovary [email or web address] Not available 2022 17:14:15 Medical History Condition Response Allergies (Food, seasonal, environmental ) Y Other Y Blood Transfusion N Drug/Latex Allergies/Reactions N Breast Cancer N Dermatologic Disorders N Lung Disease N [...] ICD10 Code Diagnosis IMO Codes Diagnosis Note [id number] Sheldon Shelton MD [place] [address],[email or web address] [place] [address] 01/29/2025 10:31:56 01/29/2025 20:56:09 [id number] Sheldon Shelton MD [place] [address] [address] 02/05/2025 11:49:32 02/05/2025 12:18:10 Pain in pelvis [id number] R10.20 [id number] Sheldon Shelton MD [place] [address] [address] 02/11/2025 11:43:00 02/11/2025 13:30:00 Pain in pelvis [id number] R10.20 [id number] This patient is a 29-year-ol d female [...] Member ID Orosco Member ID Guarantor Name 02/11/2025 1 [facility] [employer] [facility] [employer] Brittanie Lerner [id number] Rose Yann Notes Date Note Type Note Provider Name and Address Organization Details Recorded Time 02/11/2025 text/html This patient is a 29-year-old [...] and infection. Sheldon Shelton MD [address], [place], [address], [facility] 02/11/2025 13:20:40 OBGyn Episode No OBEpisode recorded.
[2025-02-17 13:23] VITALS: BP 97/60; PULSE 86; RESP 18; TEMP 36.6; O2SAT 100
--- NOTE | 2025-02-17 13:58 | ED.URI ---
HPI - URI/Sore Throat General Chief Complaint: Upper Respiratory Infection Stated Complaint: Sore Throat Time Seen by Provider: 02/17/25 13:58 Source: patient, RN notes reviewed and old records reviewed Mode of arrival: ambulatory Limitations: no limitations History of Present Illness HPI Narrative: 29 year old female presents to [facility] care with complaints of feeling bad yesterday with nausea and feeling dizzy and then last night she had nausea and vomitng body aches, sore throat and fever of 100.4F. Patient reports that she has been taking Advil for her fevers and discomfort. Patient reports that she was treated for strep throat 3 weeks ago with Cefdinir and Medrol dose pack and states felt better, reports that significant other just had strep and she is concerned for reoccurrance of strep. MD elicited complaint: cough and sore throat Pertinent past history: other (strep throat 3 weeks ago and + exposure to strep recently.) Onset (ago): day(s) (since yesterday.) Pain scale (0-10): 7 Able to tolerate fluids by mouth: Yes Exacerbating factors: swallowing Treatments prior to arrival: ibuprofen Related Data Home Medications ?Medication ?Instructions ?Recorded ?Confirmed ?Last Taken ?Type albuterol sulfate 90 mcg/actuation 1 inh inhalation QID PRN Wheezing 08/20/19 10/25/22 Unknown History aerosol inhaler (Ventolin HFA) montelukast 10 mg tablet 10 mg PO DAILY 10/25/22 11/03/22 11/02/22 History omeprazole 40 mg capsule,delayed 40 mg PO DAILY 10/25/22 11/03/22 11/02/22 History release fluoxetine 40 mg capsule mg 09/04/24 Unknown History fluoxetine 20 mg capsule mg 01/19/25 Unknown History Allergies Allergy/AdvReac Type Severity Reaction Status Date / Time amoxicillin (From Augmentin) Allergy Intermediate Hives Verified 02/17/25 13:14 clavulanic acid (From Allergy Intermediate Hives Verified 02/17/25 13:14 Augmentin) Penicillins Allergy Mild Fever Verified 02/17/25 13:14 Review of Systems Review of Systems: CONSTITUTIONAL:Reports malaise, chills, sweats, or fever. EYES: Denies visual changes, redness, or discharge. ENT: Reports rhinorrhea, congestion,n o sinus pain, no otalgia and +sore throat. CARDIOVASCULAR: Denies chest pain, palpitations, or edema. RESPIRATORY: Reports no cough.? Denies dyspnea. GASTROINTESTINAL: Denies abdominal pain, +nausea, +vomiting,no diarrhea SKIN: Denies rash or itching. MUSCULOSKELETAL: reports myalgia. NEUROLOGIC: Denies headache. All systems reviewed & are unremarkable except as noted in HPI and below PMFSH Past Medical History Medical History (Updated 02/19/25 @ 16:00 by Sheree Charlton APRN) Bipolar 1 disorder, mixed Celiac disease GERD (gastroesophageal reflux disease) Migraine Strep sore throat Depression Asthma Surgical History Surgical History (Updated 02/19/25 @ 15:56 by Sheree Charlton APRN) History of tonsillectomy H/O: hysterectomy Hx of laparoscopy endometriosis Family History Family History (Updated 08/20/19 @ 15:39 by Noam Mcdonald RN) Grandparent Leukemia Ovarian cancer Father Celiac disease Other Breast cancer Social History Social History (Updated 02/19/25 @ 15:55 by Sheree Charlton APRN) Smoking status: Current every day smoker Tobacco type: e-cigarettes/vaping Alcohol intake: current Drinks per week: 14 Substance use: current Substance use type: marijuana Other substance usage details: smoking,daily Living arrangements: with family Gender identity (if verbalized by the patient): Female Spiritual care concerns: No Comments At time of signature, agree with nursing past medical, surgical, social and family history. There is no relevant family history pertinent to the presenting complaint Exam Narrative: GENERAL: Ill-appearing, well-nourished, and in no acute distress. HEAD: Normocephalic EYES: PERRLA, conjunctivae clear ENT: Nares clear, turbinates edematous and erythematous, clear discharge. Mucous membranes moist. TM pearly sweet with dull light reflex bilaterally; no tragal tenderness. Oropharynx erythematous without lesions. Tonsils not present throat red and without exudates, no drooling, no hoarseness, no trismus, uvula midline.painful swallowing NECK: Supple. lymphadenopathy CHEST: Clear to auscultation, breath sounds equal. No wheezing, rhonchi, rales, or stridor. No respiratory distress, speaks in full sentences.SAO2 100% on room air HEART: Regular rate and rhythm. No murmur heard. SKIN: Warm, dry, no rash. NEURO: Alert and oriented x3. PSYCH: Normal mood and affect Course Course Emergency Course: Patient is aware of diagnosis, understands and agrees to treatment plan.? Anticipatory guidance given.? Patient agrees to follow-up as directed and is aware of reasons to seek care at the emergency department. Portions of this record may have been created with voice recognition software Level of Care: Express Care Visit Vital Signs Vital signs: Vital Signs Temperature 36.6 C 02/17/25 13:23 Pulse Rate 86 02/17/25 13:23 Respiratory Rate 18 02/17/25 13:23 Blood Pressure 97/60 L 02/17/25 13:23 Pulse Oximetry 100 02/17/25 13:23 Oxygen Delivery Room Air 02/17/25 13:23 Temperature 36.6 C 02/17/25 13:23 Pulse Rate 86 02/17/25 13:23 Respiratory Rate 18 02/17/25 13:23 Blood Pressure 97/60 L 02/17/25 13:23 Pulse Oximetry 100 02/17/25 13:23 Oxygen Delivery Room Air 02/17/25 13:23 Reviewed MDM - URI/Sore Throat MDM Narrative Medical decision making narrative: Differential diagnosis considered: Olsen virus, strep pharyngitis, allergic rhinitis, upper respiratory tract infection, sinusitis, rhinosinusitis, nasopharyngitis. viral pharyngitis, otitis media, otitis externa, pneumonia, bronchitis, viral cough syndrome, viral syndrome, and influenza.? Exam findings show no acute concerns or changes; patient is non-toxic appearing and is in no distress.? Patient is appropriate for outpatient treatment and follow-up. Differential Diagnosis Differential diagnosis: Likely upper respiratory infection, viral infection, pharyngitis and other (strep pharyngitis) Medical Records Attestation: I reviewed the patient's medical records. Lab Data Attestation: I reviewed the patient's lab results. Lab results narrative: strep screen positive Labs: Lab Results 02/17/25 Range/Units 13:50 POC Grp A Strep Screen Positive (Negative) reviewed Critical Care Time Critical Care Time Critical Care Time: No Discharge Plan Discharge Clinical Impression: Strep sore throat Patient Disposition: Home Condition: Stable Instructions: Antibiotic Form, Strep Throat (ED) Additional Instructions: You tested positive for Group A strep . Take the entire course of antibiotics. Throw away your current toothbrush and begin using a new toothbrush in 48 hours in order to prevent re-infection. Sanitize all reusable water bottles . Do not share items with others. Salt water gargles may alleviate some of the throat discomfort. You can take Tylenol or ibuprofen per the package instructions for pain/fever. If your symptoms persist, change or worsen significantly before you can contact your personal physician then please, without delay, go to the emergency department for further evaluation. Follow-up with PCP in 7-10 days or sooner if needed Patient Language: Upper Sorbian Prescriptions: New cefdinir 300 mg capsule 300 mg PO Q12H Qty: 20 0RF Rx Instructions: take with food complete all doses prednisone 20 mg tablet 40 mg PO DAILY Qty: 10 0RF No Action fluoxetine 20 mg capsule cefdinir 300 mg capsule 300 mg PO Q12H 10 Days Qty: 20 0RF fluoxetine 40 mg capsule albuterol sulfate [Ventolin HFA] 90 mcg/actuation Hfa Aerosol Inhaler 1 inh INHALATION QID PRN (Reason: Wheezing) omeprazole 40 mg capsule,delayed release(DR/EC) 40 mg PO DAILY montelukast 10 mg tablet 10 mg PO DAILY Follow-up/Referrals: Theresa,Mitzi Yip APRN [Primary Care Provider, Unknown] Time of Disposition: 14:03 Quality Harrison Coma Scale Eyes: Open Verbal: Oriented and Alert Motor: Follows Commands Princess Coma Total Score: 15
[2025-02-18 11:50] LABS: EDSTREPNEGPOS1 Positive (Negative)
== END 2025-02-17 14:07 | disposition home or self-care (01) ==
PROVIDERS: Emergency Provider Registered Nurse; PCP Nurse Practitioner
DX: J02.0 Streptococcal pharyngitis (principal); F17.290 Nicotine dependence, other tobacco product, uncomplicated; F12.90 Cannabis use, unspecified, uncomplicated; J45.909 Unspecified asthma, uncomplicated; K21.9 Gastro-esophageal reflux disease without esophagitis; K90.0 Celiac disease; F32.A Depression, unspecified
CPT/HCPCS: 87880; 99213; G0463